=== PATIENT | male | born 1940 | race Caucasian/White ===

== ENCOUNTER 2020-05-07 07:16 | Emergency (ER) | payer MEDICARE, OTHER, SELFPAY ==
[2020-05-07] VITALS (13 sets, daily range): BP systolic 111–136; BP diastolic 69–92; PULSE 78–95; RESP 18–40; TEMP 36.6; O2SAT 77–97; BMI 38.3
--- NOTE | 2020-05-07 07:21 | XRR_ITS ---
PROCEDURE INFORMATION: Exam: XR Chest, 1 View Exam date and time: 05/07/2020 7:42 AM Age: 79 years old Clinical indication: Shortness of breath; Additional info: SOB TECHNIQUE: Imaging protocol: XR of the chest Views: 1 view. COMPARISON: CR Chest 1 [place] [id number] 09/18/2018 1:30 PM FINDINGS: Tubes, catheters and devices: A permanent sequential pacemaker appears intact. Lungs: There is bibasilar pulmonary atelectasis which has increased in prominence since the previous study from 09/18/2018. Superimposed pneumonia in the right base cannot be excluded. The upper lung zones are clear. The pulmonary vascularity is normal. Pleural space: Unremarkable. No pleural effusion. No pneumothorax. Heart/Mediastinum: The cardiac silhouette is enlarged but unchanged. Bones/joints: Unremarkable. XR/XR chest 1V portable [id number] IMPRESSION: 1. Mild cardiomegaly. 2. Worsening bibasilar atelectasis. Superimposed pneumonia in the right base cannot be excluded.
--- NOTE | 2020-05-07 07:29 | W.ED.COVID ---
HPI - COVID General: Chief Complaint: COVID symptoms Stated Complaint: resp distress Time Seen by Provider: 05/07/20 07:27 Triage information: Has fever, cough or shortness of breath. No known COVID + exposure last 14 days History of Present Illness: HPI Narrative: 79-year-old male presents via EMS on nasal cannula at 6 L/min. His complaint of 3 to 4 days of shortness of breath EMS reports that the stated he was at 70 to 80% all night on 4 L by nasal cannula. The reported in route he was up to 96% by nasal cannula with EMS. On arrival in the exam room he was in the 80 percentile with having just finished the second nebulizer as well as having the nasal cannula in place. He has had increasing cough last few days and little bit of increasing lower leg edema he denies chest pain denies diarrhea or vomiting or myalgia or fever. MD complaint: has COVID symptoms Prior covid testing: no COVID 19 common symptoms: positive non-productive cough, dyspnea and fatigue; negative throat pain, nasal congestion, nausea, vomiting or diarrhea COVID 19 other sytmptoms: positive requiring more oxygen and respiratory distress; negative chest pain Onset (ago): day(s) Severity: severe Pertinent comorbid conditions: hypertension, COPD/respiratory disease and obesity Treatment prior to arrival: steroids, oxygen and breathing treatments COVID Results: SARS-CoV-2 Antigen (Rapid) Negative (Negative) 05/07/20 08:01 05/07/20 Nasal/Oral Coronavirus 2019 PCR Pending 05/07/20 09:10 05/07/20 Review of Systems Const: Reports: fatigue ENMT: Denies: throat pain, ear or mastoid pain, nasal discharge or nasal congestion Card: Denies: chest pain, edema, dyspnea on exertion or orthopnea Resp: Reports: dyspnea and non-productive cough GI: Denies: abdominal pain, nausea, vomiting, hematemesis, coffee ground emesis, diarrhea, constipation, bloating, hematochezia or melena : Denies: flank pain, dysuria, urinary frequency or urinary urgency Skin/Breast: Denies: rash or pruritus [facility] ED PFSH: Medical History A-fib Anxiety disorder Chest pain Chronic episodic atrial fibrillation COPD (chronic obstructive pulmonary disease) Dyslipidemia (high LDL; low HDL) Leg swelling Mixed hyperlipidemia Peripheral neuropathy PVD (peripheral vascular disease) SOB (shortness of breath) Surgical History History of permanent cardiac pacemaker placement Physical Exam Const: COMMON NORMALS: no acute distress GENERAL APPEARANCE: cooperative and comfortable ORIENTATION/CONSCIOUSNESS: Yes awake, Yes oriented to person, Yes oriented to place and Yes oriented to time HENMT: COMMON NORMALS: normocephalic, atraumatic and hearing grossly normal bilaterally HEAD & SCALP: normocephalic and atraumatic Eye: COMMON NORMALS: Equal, round and reactive pupils present, EOMs intact bilaterally, conjunctivae normal and no scleral icterus CONJUNCTIVA: Yes conjunctivae normal PUPIL: Yes Equal, round and reactive pupils present Neck/C-Spine: COMMON NORMALS: full ROM, no lymphadenopathy, supple and no JVD Lymph: LYMPHATIC: no lymphadenopathy noted and no lymphedema noted Resp: AUSCULTATION: rales, rhonchi and wheezes Cardio: COMMON NORMALS: no JVD, regular rate, regular rhythm and No murmurs present (Cardio) RATE: regular rate RHYTHM: regular rhythm GI: COMMON NORMALS: Soft to palpation and No hepatosplenomegaly present AUSCULTATION: Yes normoactive bowel sounds PALPATION: Yes Soft to palpation, No Tenderness to palpation present (GI), No Guarding due to palpation present (GI) and Yes No hepatosplenomegaly present Extremity: COMMON NORMALS: normal to inspection, capillary refill normal, no clubbing, cyanosis or edema, no calf tenderness and no pedal edema Neuro: SENSORIUM/ORIENTATION: Yes oriented to person, Yes oriented to place and Yes oriented to time Skin: COMMON NORMALS: no rashes or lesions noted GENERAL SKIN EXAM: no rashes or lesions noted Course Vital Signs: Vital signs: Vital Signs Temperature 97.9 F 05/07/20 07:18 Pulse Rate 95 05/07/20 15:27 Respiratory Rate 25 H 05/07/20 15:27 Blood Pressure 111/75 05/07/20 15:27 Pulse Oximetry 96 05/07/20 15:27 MDM - COVID MDM Narrative Medical decision making narrative: Antigen is negative PCR is pending. Patient has highly suspicious findings for Covid on his chest x-ray and his laboratory findings he continues to require 15 L by nonrebreather to maintain oxygen sats. Unfortunately we do not have any appropriate beds available for him. The VQ is full at this point and there are no private rooms where he could be safely monitored. Discussed with [facility] they are able to take him there was a long delay in getting a bed available we recheck several times to see if any beds opened up here and they had not so patient was maintained in the ER did check on him several times his sats remained good he was feeling better although he still has a cough. Patient ultimately was transferred by ambulance to [facility]. Medical Records Attestation: I reviewed the patient's medical records. Lab Data Result diagrams: 05/07/20 07:38 05/07/20 07:38 Labs: Lab Results 05/07/20 05/07/20 05/07/20 Range/Units 07:20 07:38 07:38 WBC 12.1 H (4.0-10.0) 10^3/uL RBC 4.74 (4.1-5.3) 10^6/uL Hgb 9.6 L (11.7-16.6) g/dL Hct 36.4 L (42.0-52.0) % MCV 76.8 L (80-94) fL MCH 20.3 L (28.0-34.0) pg MCHC 26.4 L (30.0-36.0) g/dL RDW 18.4 H (12.1-15.1) % Plt Count 74 L (130-400) 10^3/cmm MPV 10.5 H (7.4-10.4) fL Neut % (Auto) 72.9 % Lymph % (Auto) 12.0 % [place] % (Auto) 13.8 % Eos % (Auto) 0.4 % Baso % (Auto) 0.2 % Neut # (Auto) 8.79 H (1.8-7.7) 10^3/uL Lymph # (Auto) 1.5 (0.8-4.8) 10^3/uL [place] # (Auto) 1.7 H (0.2-0.9) 10^3/uL Eos # (Auto) 0.1 (0.0-0.8) 10^3/uL Baso # (Auto) 0.0 (0.0-0.1) 10^3/uL Nucleated RBC % (auto) 0.4 % Nucleated RBCs # 0.1 /100WBC PT (12.1-14.9) SECONDS INR (0.8-1.2) Fibrinogen (174-498) mg/dL D-Dimer (0-0.59) ug/mIFEU Specimen Type Arterial Sample Site Radial, left ABG pH 7.31 L (7.35-7.45) ABG pCO2 57.6 H (35-45) mmHg ABG pO2 65.3 L (80.0-100.0) mmHg ABG HCO3 28.9 H (22-26) mmol/L ABG O2 Saturation 91.1 ABG Base Excess 1.8 (-2.0-2.0) mmol/L Cole Test Pos A-a O2 Gradient 75.6 H (5-10) mmHg Hematocrit 30.2 L (42-52) % Hgb O2 Saturation 89.1 L (95-100) % Carboxyhemoglobin 1.5 (0.4-20.1) %THgb Methemoglobin 0.7 (0.4-1.5) % Total Hemoglobin 9.8 L (14-18) g/dL Sodium 139.0 137 (131-143) mmol/L Potassium 4.5 4.8 (3.5-5.0) mmol/L Glucose 215.0 H 192 H (70-115) mg/dL Ionized Calcium 1.2 (1.1-1.4) mmol/L O2 Delivery Device Nrb FiO2 100.0 % General Laborer ID jmn Chloride 98 (98-107) mmol/L Carbon Dioxide 28 (22-29) mmol/L Anion Gap 15.8 (5-19) BUN 25 H (8-23) mg/dL Creatinine 0.9 (0.7-1.2) mg/dL GFR Calculation Not Reportable Calculated Osmolality 294 (285-295) mOsm/kg Lactic Acid (0.5-2.2) mmol/L Calcium 9.1 (8.5-10.5) mg/dL Magnesium 1.8 (1.7-2.3) mg/dL Ferritin 27 L (30-400) ng/mL Total Bilirubin 0.6 (0.15-1.2) mg/dL AST 21 (0-40) U/L ALT 21 (0-41) U/L Alkaline Phosphatase 112 (40-130) IU/L Lactate Dehydrogenase 175 (135-225) U/L Troponin T Baseline (0-15) ng/L Troponin T 120 Minute (0-15) ng/L Delta Troponin T (0-10) ABS# Troponin T Hi Sens 6Hr (0-15) ng/L Troponin T Hi Sens 6Hr Delta (0-12) ng/L C-Reactive Protein 35.6 H (0.0-4.9) mg/L NT-Pro-B Natriuret Pep 1503 H (0-450) pg/mL Total Protein 7.9 (6.6-8.7) g/dL Albumin 4.4 (3.5-5.2) g/dL Globulin 3.5 (1.3-4.6) g/dL SARS-CoV-2 Ag (Rapid) (Negative) 05/07/20 05/07/20 05/07/20 Range/Units 07:38 07:38 07:38 WBC (4.0-10.0) 10^3/uL RBC (4.1-5.3) 10^6/uL Hgb (11.7-16.6) g/dL Hct (42.0-52.0) % MCV (80-94) fL MCH (28.0-34.0) pg MCHC (30.0-36.0) g/dL RDW (12.1-15.1) % Plt Count (130-400) 10^3/cmm MPV (7.4-10.4) fL Neut % (Auto) % Lymph % (Auto) % [place] % (Auto) % Eos % (Auto) % Baso % (Auto) % Neut # (Auto) (1.8-7.7) 10^3/uL Lymph # (Auto) (0.8-4.8) 10^3/uL [place] # (Auto) (0.2-0.9) 10^3/uL Eos # (Auto) (0.0-0.8) 10^3/uL Baso # (Auto) (0.0-0.1) 10^3/uL Nucleated RBC % (auto) % Nucleated RBCs # /100WBC PT 24.40 H (12.1-14.9) SECONDS INR 2.11 H (0.8-1.2) Fibrinogen 484 (174-498) mg/dL D-Dimer 0.40 (0-0.59) ug/mIFEU Specimen Type Sample Site ABG pH (7.35-7.45) ABG pCO2 (35-45) mmHg ABG pO2 (80.0-100.0) mmHg ABG HCO3 (22-26) mmol/L ABG O2 Saturation ABG Base Excess (-2.0-2.0) mmol/L Cole Test A-a O2 Gradient (5-10) mmHg Hematocrit (42-52) % Hgb O2 Saturation (95-100) % Carboxyhemoglobin (0.4-20.1) %THgb Methemoglobin (0.4-1.5) % Total Hemoglobin (14-18) g/dL Sodium (131-143) mmol/L Potassium (3.5-5.0) mmol/L Glucose (70-115) mg/dL Ionized Calcium (1.1-1.4) mmol/L O2 Delivery Device FiO2 % General Laborer ID Chloride (98-107) mmol/L Carbon Dioxide (22-29) mmol/L Anion Gap (5-19) BUN (8-23) mg/dL Creatinine (0.7-1.2) mg/dL GFR Calculation Calculated Osmolality (285-295) mOsm/kg Lactic Acid 1.5 (0.5-2.2) mmol/L Calcium (8.5-10.5) mg/dL Magnesium (1.7-2.3) mg/dL Ferritin (30-400) ng/mL Total Bilirubin (0.15-1.2) mg/dL AST (0-40) U/L ALT (0-41) U/L Alkaline Phosphatase (40-130) IU/L Lactate Dehydrogenase (135-225) U/L Troponin T Baseline 13 (0-15) ng/L Troponin T 120 Minute (0-15) ng/L Delta Troponin T (0-10) ABS# Troponin T Hi Sens 6Hr (0-15) ng/L Troponin T Hi Sens 6Hr Delta (0-12) ng/L C-Reactive Protein (0.0-4.9) mg/L NT-Pro-B Natriuret Pep (0-450) pg/mL Total Protein (6.6-8.7) g/dL Albumin (3.5-5.2) g/dL Globulin (1.3-4.6) g/dL SARS-CoV-2 Ag (Rapid) (Negative) 05/07/20 05/07/20 05/07/20 Range/Units 08:01 09:52 13:38 WBC (4.0-10.0) 10^3/uL RBC (4.1-5.3) 10^6/uL Hgb (11.7-16.6) g/dL Hct (42.0-52.0) % MCV (80-94) fL MCH (28.0-34.0) pg MCHC (30.0-36.0) g/dL RDW (12.1-15.1) % Plt Count (130-400) 10^3/cmm MPV (7.4-10.4) fL Neut % (Auto) % Lymph % (Auto) % [place] % (Auto) % Eos % (Auto) % Baso % (Auto) % Neut # (Auto) (1.8-7.7) 10^3/uL Lymph # (Auto) (0.8-4.8) 10^3/uL [place] # (Auto) (0.2-0.9) 10^3/uL Eos # (Auto) (0.0-0.8) 10^3/uL Baso # (Auto) (0.0-0.1) 10^3/uL Nucleated RBC % (auto) % Nucleated RBCs # /100WBC PT (12.1-14.9) SECONDS INR (0.8-1.2) Fibrinogen (174-498) mg/dL D-Dimer (0-0.59) ug/mIFEU Specimen Type Sample Site ABG pH (7.35-7.45) ABG pCO2 (35-45) mmHg ABG pO2 (80.0-100.0) mmHg ABG HCO3 (22-26) mmol/L ABG O2 Saturation ABG Base Excess (-2.0-2.0) mmol/L Cole Test A-a O2 Gradient (5-10) mmHg Hematocrit (42-52) % Hgb O2 Saturation (95-100) % Carboxyhemoglobin (0.4-20.1) %THgb Methemoglobin (0.4-1.5) % Total Hemoglobin (14-18) g/dL Sodium (131-143) mmol/L Potassium (3.5-5.0) mmol/L Glucose (70-115) mg/dL Ionized Calcium (1.1-1.4) mmol/L O2 Delivery Device FiO2 % General Laborer ID Chloride (98-107) mmol/L Carbon Dioxide (22-29) mmol/L Anion Gap (5-19) BUN (8-23) mg/dL Creatinine (0.7-1.2) mg/dL GFR Calculation Calculated Osmolality (285-295) mOsm/kg Lactic Acid (0.5-2.2) mmol/L Calcium (8.5-10.5) mg/dL Magnesium (1.7-2.3) mg/dL Ferritin (30-400) ng/mL Total Bilirubin (0.15-1.2) mg/dL AST (0-40) U/L ALT (0-41) U/L Alkaline Phosphatase (40-130) IU/L Lactate Dehydrogenase (135-225) U/L Troponin T Baseline (0-15) ng/L Troponin T 120 Minute 13.40 (0-15) ng/L Delta Troponin T 0.40 (0-10) ABS# Troponin T Hi Sens 6Hr 11.12 (0-15) ng/L Troponin T Hi Sens 6Hr Delta -1.88 L (0-12) ng/L C-Reactive Protein (0.0-4.9) mg/L NT-Pro-B Natriuret Pep (0-450) pg/mL Total Protein (6.6-8.7) g/dL Albumin (3.5-5.2) g/dL Globulin (1.3-4.6) g/dL SARS-CoV-2 Ag (Rapid) Negative (Negative) COVID Results: SARS-CoV-2 Antigen (Rapid) Negative (Negative) 05/07/20 08:01 05/07/20 Nasal/Oral Coronavirus 2019 PCR Pending 05/07/20 09:10 05/07/20 Discharge Plan Discharge Patient Disposition: Xfer Short-Term Hosp Referrals: Diego Pelaez Jr, MD [Primary Care Provider] - Discharge Date/Time: 05/07/20 16:33 Coding Level of Care Code ED Inside Sales Engineer for Chg Fwd Exam Comprehensive
[2020-05-07 07:32] LABS: ABG PCO2 57.6 mmHg (35-45); ABG PH Result 7.31 (7.35-7.45); Alveolar-Arterial Oxygen Gradi 75.6 mmHg (5-10); Arterial Blood Gas Hematocrit 30.2 % (42-52); Base Excess ABG 1.8 mmol/L (-2.0-2.0); Blood Gas Allen Test Pos; Blood Gas Sample Site Radial, left; Blood Gas Sample Type Arterial; Carboxyhemoglobin 1.5 %THgb (0.4-20.1); HCO3 ABG 28.9 mmol/L (22-26); HGB O2 Sat 89.1 % (95-100); Ionized Calcium Level - ABG 1.2 mmol/L (1.1-1.4); Methemoglobin 0.7 % (0.4-1.5); Oxygen Device NRB; Oxygen Saturation ABG 91.1; PO2 ABG 65.3 mmHg (80.0-100.0); Potassium Level - ABG 4.5 mmol/L (3.5-5.0); Total Hemoglobin 9.8 g/dL (14-18)
[2020-05-07 07:50] LABS: Basophils % 0.2 %; Eosinophils # 0.1 10^3/uL (0.0-0.8); Eosinophils % 0.4 %; Hematocrit 36.4 % (42.0-52.0); Hemoglobin 9.6 g/dL (11.7-16.6); Lymphocytes # 1.5 10^3/uL (0.8-4.8); Mean Corpuscular HGB Conc 26.4 g/dL (30.0-36.0); Mean Corpuscular Hemoglobin 20.3 pg (28.0-34.0); Mean Corpuscular Volume 76.8 fL (80-94); Monocytes # 1.7 10^3/uL (0.2-0.9); Monocytes % 13.8 %; Neutrophils # 8.79 10^3/uL (1.8-7.7); Neutrophils % 72.9 %; Nucleated Red Blood Cells # 0.1 /100WBC; Nucleated Red Blood Cells % 0.4 %; Platelet Count 74 10^3/cmm (130-400); Red Blood Count 4.74 10^6/uL (4.1-5.3); Red Cell Distribution Width 18.4 % (12.1-15.1); White Blood Count 12.1 10^3/uL (4.0-10.0)
--- NOTE | 2020-05-07 07:51 | ECG_ITS ---
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 Measurements Intervals [place] Rate: 84 P: NM: -1 QRS: 4 QRSD: 168 T: 147 QT: 412 QTc: 488 Interpretive Statements ATRIAL FIBRILLATION LEFT BUNDLE BRANCH BLOCK [120+ ms QRS DURATION, 80+ ms Q/S IN V1/V2, 85+ ms R IN I/aVL/V5/V6] Compared to ECG 09/18/2018 13:09:57 Ventricular-paced complex(es) or rhythm no longer present Electronically Signed On 05-07-2020 21:38:26 CDT by Gen Brown M.D. [email or web address]/[id number] f
[2020-05-07 07:54] LABS: Mean Platelet Volume 10.5 fL (7.4-10.4)
[2020-05-07 08:01] LABS: Fibrinogen 484 mg/dL (174-498); INR 2.11 (0.8-1.2)
[2020-05-07 08:02] LABS: Lactic Sepsis W/Reflex 1.5 mmol/L (0.5-2.2)
[2020-05-07] MEDS: levofloxacin-dextrose 5 % 750 MG/150 ML PREMIX 100 MG IV (08:03)
[2020-05-07 08:11] LABS: Alanine Aminotransferase 21 U/L (0-41); Albumin Level 4.4 g/dL (3.5-5.2); Alkaline Phosphatase 112 IU/L (40-130); Anion Gap 15.8 (5-19); Aspartate Amino Transferase 21 U/L (0-40); Blood Urea Nitrogen 25 mg/dL (8-23); C Reactive Protein 35.6 mg/L (0.0-4.9); Calcium 9.1 mg/dL (8.5-10.5); Carbon Dioxide 28 mmol/L (22-29); Chloride 98 mmol/L (98-107); Ferritin 27 ng/mL (30-400); Globulin 3.5 g/dL (1.3-4.6); Glucose 192 mg/dL (65-115); Lactate Dehydrogenase 175 U/L (135-225); Magnesium 1.8 mg/dL (1.7-2.3); NT Pro B Type Natriuretic Pept 1503 pg/mL (0-450); Osmolality Calculated 294 mOsm/kg (285-295); Potassium 4.8 mmol/L (3.5-5.1); Sodium 137 mmol/L (136-145); Total Bilirubin 0.6 mg/dL (0.15-1.2); Total Protein 7.9 g/dL (6.6-8.7)
[2020-05-07 08:29] LABS: Troponin(5th) Baseline 13 ng/L (0-15)
[2020-05-07 08:40] LABS: SARS Covid-2 Antigen Negative (Negative)
--- NOTE | 2020-05-07 09:51 | ECG_ITS ---
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 Measurements Intervals [place] Rate: 92 P: TN: -1 QRS: -4 QRSD: 161 T: 142 QT: 406 QTc: 504 Interpretive Statements ATRIAL FIBRILLATION LEFT BUNDLE BRANCH BLOCK [120+ ms QRS DURATION, 80+ ms Q/S IN V1/V2, 85+ ms R IN I/aVL/V5/V6] Compared to ECG 05/07/2020 07:55:27 No significant changes Electronically Signed On 05-07-2020 21:45:50 CDT by Gen Brown M.D. [id number]
[2020-05-07] MEDS: dexamethasone 4 mg/mL INJ 6 MG IVP (10:54)
[2020-05-07 14:43] LABS: Troponin 5 6HR 11.12 ng/L (0-15)
[2020-05-07 14:44] LABS: Troponin 5 6HR Delta -1.88 ng/L (0-12)
[2020-05-08 09:16] LABS: Coronavirus Lab Test PTC Negative
--- NOTE | 2020-05-08 10:11 | PC.NURSE ---
Lab called 1 of 4 blood culture results of gram positive cocci in clusters. Rachel EVANS at [facility] was called and given the results.
--- NOTE | 2020-05-08 17:27 | PC.NURSE ---
Called [facility] and spoke with NATHAN Ramos and relayed negative COVID result to her.
== END 2020-05-07 16:33 | disposition short-term general hospital (02) ==
PROVIDERS: Emergency Provider Family Medicine; PCP Family Medicine
DX: R06.02 Shortness of breath (principal); I48.91 Unspecified atrial fibrillation; J44.9 Chronic obstructive pulmonary disease, unspecified; E78.5 Hyperlipidemia, unspecified; E78.2 Mixed hyperlipidemia; Z95.0 Presence of cardiac pacemaker
CPT/HCPCS: 12345; 36415; 36600; 51702; 71045; 80051; 80053; 82728; 82810; 83605; 83615; 83735; 83880; 83986; 84484; 85025; 85378; 85384; 85610; 86140; 87040; 87077; 87186; 87205; 87426; 87635; 93005; 94660; 96365; 96366; 96375; 99284; 99285; J1100; J1956

== ENCOUNTER 2020-10-09 11:36 | Emergency (ER) | payer MEDICARE, OTHER, SELFPAY ==
--- NOTE | 2020-10-09 11:48 | CT_ITS ---
WS: [id number] CT CERVICAL SPINE HISTORY: fall on coumadin TECHNIQUE: Contiguous 2.5 mm axial imaging performed through the entire cervical spine. Sagittal and coronal reformats also performed. All CT scans at [facility] use at least one of these do se optimization techniques: automated exposure control; mA and/or kV adjustment per patient size (inc ludes targeted exams where dose is matched to clinical indication); or iterative reconstruction. DLP: 957.72 mGy.cm COMPARISON: None available. Normal posterior cervical alignment. Craniocervical junction is normal. Lateral masses are aligned od ontoid is intact. Narrowing of the predental space. No acute cervical fracture is identified. Diffuse osteopenia. Moderate to severe narrowing of the facet joints bilaterally with foraminal narrowing th roughout the cervical spine. Lung apices are clear. CT/CT cervical spin wo con* [id number] IMPRESSION: No acute cervical spine fracture. Diffuse osteopenia with facet joint arthritis.
--- NOTE | 2020-10-09 11:48 | CT_ITS ---
WS: [id number] CT FACIAL BONES HISTORY: fall on coumadin TECHNIQUE: Images obtained from the supraorbital location through the mandible. Soft tissue and bone windows are reviewed. Coronal and sagittal reformats have also been submitted. DLP: 805.[address] scans at [facility] use at least one of these dose optimization techniques: automat ed exposure control; mA and/or kV adjustment per patient size (includes targeted exams where dose is matched to clinical indication); or iterative reconstruction. COMPARISON: None available. No facial bone fractures are identified. Zygomatic arches are intact. Rock of the orbits and globes are intact. No nasal bone fracture. No air-fluid levels in the sinuses. Moderate amount of soft tissu e edema and hemorrhage centered over the LEFT frontal bone. CT/CT facial bones wo con* [id number] IMPRESSION: 1. No facial bone fracture. 2. Moderate scalp hematoma centered over the LEFT frontal bone.
--- NOTE | 2020-10-09 11:48 | CT_ITS ---
WS: [id number] CT HEAD NONCONTRAST HISTORY: fall on coumadin TECHNIQUE: Contiguous axial imaging performed through the brain in 2.5 mm imaging. Bone and soft tiss ue windows. Sagittal and coronal reformats reviewed. All CT scans at [facility] use at ast one of these dose optimization techniques: automated exposure control; mA and/or kV adjustment pe r patient size (includes targeted exams where dose is matched to clinical indication); or iterative r econstruction. DLP: 2453.82 mGy.cm COMPARISON: 04/25/2010 No acute intracranial hemorrhage, midline shift or mass effect. Moderate atrophy and prior lacunar infarct versus perivascular space in the inferior LEFT basal gangl ia. Ventricles: Normal size with no hydrocephalus. Paranasal sinuses: As visualized are clear. Mastoid air cells: Well pneumatized. Calvarium and scalp: No skull fracture. There is a moderate size scalp hematoma centered over the LEF T frontal bone and just above the orbit. CT/CT head wo con* [id number] IMPRESSION: 1. No acute intracranial hemorrhage. 2. Moderate-sized LEFT frontal scalp hematoma. 3. No fracture.
--- NOTE | 2020-10-09 11:49 | XRR_ITS ---
PROCEDURE INFORMATION: Exam: XR Bilateral Hips Exam date and time: 10/09/2020 1:20 PM Age: 80 years old Clinical indication: Injury or trauma; Fall; Blunt trauma (contusions or hematomas); Bilateral; Hip; Injury date: 10/09/20 TECHNIQUE: Imaging protocol: XR bilateral hips. Views: 2 views of hips with pelvis when performed. COMPARISON: No relevant prior studies available. FINDINGS: Bones/joints: No fracture. No dislocation. No significant hip joint space narrowing. The symphysis pubis and sacroiliac joints are not diastatic. Multilevel degenerative changes felt to be present in the lower lumbar spine. Soft tissues: No acute soft tissue abnormality. XR/XR hip BI m 5V wo/w pel* [id number] IMPRESSION: No acute osseous abnormality.
--- NOTE | 2020-10-09 11:49 | XRR_ITS ---
PROCEDURE INFORMATION: Exam: XR Left Hand Exam date and time: 10/09/2020 11:51 AM Age: 80 years old Clinical indication: Injury or trauma; Fall; Blunt trauma (contusions or hematomas); Hand; Left; Injury date: 10/09/20 TECHNIQUE: Imaging protocol: XR Left hand. Views: 1 or 2 views. COMPARISON: No relevant prior studies available. FINDINGS: Bones/joints: There is a fracture of the ulnar styloid. There is a nondisplaced distal radial fracture observed on the lateral image. Soft tissues: No acute soft tissue abnormality. XR/XR hand LT 2V [id number] IMPRESSION: 1. Nondisplaced distal radial fracture. 2. Ulnar styloid fracture.
--- NOTE | 2020-10-09 11:49 | XRR_ITS ---
PROCEDURE INFORMATION: Exam: XR Left Wrist Exam date and time: 10/09/2020 1:22 PM Age: 80 years old Clinical indication: Injury or trauma; Fall; Blunt trauma (contusions or hematomas); Wrist; Left; Injury date: 10/09/20 TECHNIQUE: Imaging protocol: XR Left wrist. Views: 1 or 2 views. COMPARISON: No relevant prior studies available. FINDINGS: Bones/joints: There is a fracture of the ulnar styloid. No distal radial fracture is identified. Soft tissues: No pronator quadratus sign. XR/XR wrist LT 2V [id number] IMPRESSION: Ulnar styloid fracture.
--- NOTE | 2020-10-09 11:49 | XRR_ITS ---
PROCEDURE INFORMATION: Exam: XR Left Elbow Exam date and time: 10/09/2020 11:51 AM Age: 80 years old Clinical indication: Injury or trauma; Fall; Blunt trauma (contusions or hematomas); Elbow; Left; Injury date: 10/09/20 TECHNIQUE: Imaging protocol: XR Left elbow. Views: 1 or 2 views. COMPARISON: Comparison: No relevant prior studies available. FINDINGS: Bones/joints: No fracture. No dislocation. No anterior or posterior fat pad sign. Soft tissues: There is superficial soft tissue swelling posterior to the olecranon which can be due to a contusion/hematoma given the history. XR/XR elbow LT 2V [id number] IMPRESSION: Soft tissue injury without osseous injury.
--- NOTE | 2020-10-09 11:49 | XRR_ITS ---
PROCEDURE INFORMATION: Exam: XR Left Knee Exam date and time: 10/09/2020 11:51 AM Age: 80 years old Clinical indication: Injury or trauma; Fall; Blunt trauma; Knee; Left; Injury date: 10/09/20; Additional info: Fall, on coumadin TECHNIQUE: Imaging protocol: XR Left knee. Views: 3 views. COMPARISON: CR Knee 3 views, LEFT* [id number] 06/07/2014 1:35 PM FINDINGS: Bones/joints: There is a nondisplaced transverse fracture involving the inferior patella. No dislocation. There is a joint effusion versus lipohemarthrosis. Soft tissues: Superficial soft tissue swelling anterior to the patella and patellar tendon. XR/XR knee LT 3V* [id number] IMPRESSION: Nondisplaced patellar fracture.
--- NOTE | 2020-10-09 11:49 | XRR_ITS ---
PROCEDURE INFORMATION: Exam: XR Chest Exam date and time: 10/09/2020 11:50 AM Age: 80 years old Clinical indication: Injury or trauma; Fall; Blunt trauma (contusions or hematomas); Injury date: 10/09/20; Prior surgery; Surgery type: Pacemaker; Additional info: Fall on coumadin TECHNIQUE: Imaging protocol: XR of the chest Views: 1 view. COMPARISON: CR XR chest 1V portable [id number] 05/07/2020 7:22 AM FINDINGS: Lungs: Poor inspiration. Decreased lung volumes. Bibasilar atelectasis versus scarring. Pleural spaces: No pneumothorax, hemothorax, or pleural effusion. Heart/Mediastinum: The heart is enlarged. The mediastinal contours are unchanged. Vasculature: There is a left subclavian dual chamber pacemaker. Bones/joints: No rib fracture identified. XR/XR chest 1V portable [id number] IMPRESSION: Bibasilar atelectasis versus scarring.
--- NOTE | 2020-10-09 11:52 | ECG_ITS ---
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 Measurements Intervals [place] Rate: 88 P: [place]: QRS: 100 QRSD: 150 T: -8 QT: 399 QTc: 484 Interpretive Statements ATRIAL FIBRILLATION WITH ABERRANT CONDUCTION OR VENTRICULAR PREMATURE COMPLEXES BORDERLINE RIGHT AXIS DEVIATION [QRS AXIS > 90] INTRAVENTRICULAR CONDUCTION DELAY [130+ ms QRS DURATION] Compared to ECG 05/07/2020 09:50:42 Ventricular premature complex(es) now present Aberrant conduction of supraventricular beat(s) now present Intraventricular conduction delay now present Left bundle-branch block no longer present Electronically Signed On 10-09-2020 20:19:42 CDT by Gen Brown M.D. [id number]
[2020-10-09 11:56] VITALS: BP 130/86; PULSE 95; RESP 18; TEMP 37.1; O2SAT 93; BMI 26.4
[2020-10-09 12:21] LABS: Alanine Aminotransferase 22 U/L (0-41); Albumin Level 4.2 g/dL (3.5-5.2); Alkaline Phosphatase 91 IU/L (40-130); Anion Gap 15.6 (5-19); Aspartate Amino Transferase 22 U/L (0-40); Blood Urea Nitrogen 20 mg/dL (8-23); Carbon Dioxide 28 mmol/L (22-29); Chloride 100 mmol/L (98-107); Globulin 3.2 g/dL (1.3-4.6); Glucose 112 mg/dL (65-115); Osmolality Calculated 289 mOsm/kg (285-295); Potassium 5.6 mmol/L (3.5-5.1); Sodium 138 mmol/L (136-145); Total Bilirubin 0.3 mg/dL (0.15-1.2); Total Protein 7.4 g/dL (6.6-8.7)
[2020-10-09 12:23] LABS: Troponin(5th) Baseline 19 ng/L (0-15)
--- NOTE | 2020-10-09 12:26 | ED_ITS ---
HPI - Fall General: Chief Complaint: Fall Stated Complaint: FALL, AMS Time Seen by Provider: 10/09/20 11:38 History of Present Illness: HPI Narrative: The patient is a 80-year-old male with past medical history atrial fibrillation on Coumadin, pacemaker, peripheral arterial and vascular disease. He comes to the ER after a fall. He was going to a imaging center to have an x-ray of his neck done and tripped while walking up the stairs. He has a hematoma to his left forehead and was confused on scene. EMS brought him in and said he is more lucid now from the scene and his mental status in the ED is at his baseline. 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 He also has been complaining of chronic neck pain which is worsened with the fall. That is what he was going to get an x-ray of. EMS attempted to place a c-collar and he refused. I offered to get in the ER and he again refused. Discussed with him his injury could be worsened by not wearing in c-collar. He does not care and will not wear one. He also complains of pain in different places left elbow, wrist, hand, and knee. Bilateral hips pain as well. MD complaint: fall Fall from: standing Fall witnessed: yes, by family Loss of consciousness: None Prolonged down time: no Symptoms prior to fall: none Context: tripped/slipped Location of injury: head and neck Severity: moderate Associated symptoms-after fall: Reports confusion, headache(s) and neck pain; Denies abdominal pain or chest pain Review of Systems General: Reports: 10 or more systems reviewed and unremarkable except in HPI and below Const: Denies: fatigue Eyes: Denies: change in vision, blurry vision or eye redness ENMT: Denies: throat pain, swelling of lips/tongue, ear or mastoid pain or nasal congestion Card: Denies: chest pain, palpitations, irregular heart rhythm, edema, dyspnea on exertion or orthopnea Resp: Denies: dyspnea, productive cough or non-productive cough GI: Denies: abdominal pain, diarrhea or GI cramping : Denies: flank pain, urinary frequency or urinary urgency Musc: Reports: neck pain, extremity pain and joint pain Skin/Breast: Reports: skin swelling; Denies: rash, pruritus, erythema, skin pain or skin tenderness Neuro: Reports: headache(s) and confusion Psych: Denies: anxiety or depression Endo: Denies: polyuria All/Imm: Denies: urticaria, throat swelling or tongue swelling PFSH ED PFSH: Medical History A-fib Anxiety disorder Benign essential hypertension with target blood pressure below 140/90 Chest pain Chronic atrial fibrillation Chronic episodic atrial fibrillation COPD (chronic obstructive pulmonary disease) Dyslipidemia (high LDL; low HDL) Leg swelling Mixed hyperlipidemia Peripheral neuropathy PVD (peripheral vascular disease) SOB (shortness of breath) Surgical History History of permanent cardiac pacemaker placement Family History Brother CAD (coronary artery disease) Mother Cancer Father Cancer Sister Cancer Family/Other Cancer Denies family history of Diabetes Clotting disorder Dementia Chronic kidney disease (CKD) Suicide Anesthesia complication Bleeding disorder Lung disease Stroke Social History Smoking and tobacco status: former smoker Alcohol intake: never Physical Exam Const: COMMON NORMALS: no acute distress, average body habitus, patient oriented x3, no limitations, healthy appearing, alert and well nourished GENERAL APPEARANCE: cooperative, comfortable, well kempt and well developed ORIENTATION/CONSCIOUSNESS: Yes awake, Yes oriented to person, Yes oriented to place and Yes oriented to time HENMT: COMMON NORMALS: normocephalic, external ears normal and Normal external nose present HEAD & SCALP: normal to inspection and normocephalic HEAD IMAGES: 1. Hematoma to left forehead and scalp. Associated tenderness. No significant bleeding NOSE: Normal external nose present EXTERNAL EAR: Yes external ears normal MOUTH: Normal oral and palatal mucosa present THROAT: posterior oropharynx normal Eye: COMMON NORMALS: Equal, round and reactive pupils present and EOMs intact bilaterally GENERAL EYE: appearance normal, both eyes and all related structures PUPIL: Yes Equal, round and reactive pupils present Neck/C-Spine: COMMON NORMALS: full ROM, no lymphadenopathy, no meningeal signs and no JVD GENERAL: Yes normal visual inspection OTHER: Mild tenderness to the para musculature of the cervical spine. No significant bony tenderness. Patient refused c-collar. Lymph: LYMPHATIC: no lymphadenopathy noted Chest: COMMONS NORMALS: normal inspection of the chest and normal palpation of entire chest wall Resp: COMMON NORMALS: normal respiratory effort, No retractions, No use of accessory muscles, clear to auscultation bilaterally and percussion normal EFFORT & INSPECTION: Yes able to speak in complete sentences AUSCULTATION: clear to auscultation bilaterally PERCUSSION: percussion normal Cardio: COMMON NORMALS: no JVD, regular rate, regular rhythm, S1 normal heart sound present, S2 normal heart sound present and Peripheral pulses 2+ throughout RATE: regular rate RHYTHM: regular rhythm HEART SOUNDS: S1 normal heart sound present and S2 normal heart sound present PERIPHERAL PULSES: Peripheral pulses 2+ throughout GI: COMMON NORMALS: Normal to inspection, nondistended, normoactive bowel sounds present, Soft to palpation, non-tender and no masses INSPECTION: Yes normal to inspection PALPATION: Yes Soft to palpation : COMMON NORMALS: Yes no CVA tenderness BLADDER/KIDNEY EXAM: Yes no CVA tenderness Back/Pelvis: COMMON NORMALS: no CVA tenderness, thoracic and lumbar spine normal to inspection, no thoracic nor lumbar tenderness and thoraco-lumbar ROM normal Extremity: COMMON NORMALS: normal to inspection, full ROM, capillary refill normal, no joint enlargement and no pedal edema NARRATIVE EXTREMITY EXAM: Mild tenderness to left hand, left wrist, left elbow. Major ligaments intact and no bruising noted.. Left knee also similar with tenderness. No swelling. Ligaments intact. Bilateral hips and pelvis have some mild tenderness as well. No instability. GENERAL: Yes normal exam except as noted Neuro: COMMON NORMALS: patient oriented x3, CN's II-XII intact bilaterally, moves all extremities, no focal motor deficits, no sensory deficits noted and gait normal SENSORIUM/ORIENTATION: Yes alert, Yes oriented to person, Yes oriented to place and Yes oriented to time MENINGEAL SIGNS: Yes no meningeal signs Psych: COMMON NORMALS: mental status grossly normal, Normal thought process present, cooperative, normal affect and speech normal APPEARANCE: Yes well kempt ATTITUDE: Yes calm SPEECH: Yes normal speech THOUGHT PROCESS: Normal thought process present Skin: COMMON NORMALS: no rashes or lesions noted GENERAL SKIN EXAM: no rashes or lesions noted Course 2 Vital Signs: Vital signs: Vital Signs Temperature 98.7 F 10/09/20 11:56 Pulse Rate 80 10/09/20 15:09 Respiratory Rate 18 10/09/20 15:09 Blood Pressure 130/86 10/09/20 11:56 Pulse Oximetry 97 10/09/20 15:09 MDM - Fall MDM Narrative: Medical decision making narrative: This patient came in for a fall. He has a hematoma to his left forehead. No acute bleeding seen on CT. He does have multiple fractures. Distal radius, ulnar styloid process, and left patella. None of which are displaced. He was placed in splints and discussed with Dr. De Santiago who recommended outpatient follow-up. Placed a case management referral to help him get a follow-up with these. Also his potassium was elevated. Recommended he hold his potassium for 2 days and get it rechecked. ER with worsening symptoms. He has hydrocodone at home for pain. Lab Data: Labs: Lab Results 10/09/20 10/09/20 10/09/20 Range/Units 11:52 11:52 11:52 WBC Cancelled Corrected WBC Cancelled RBC Cancelled Hgb Cancelled Hct Cancelled MCV Cancelled MCH Cancelled MCHC Cancelled RDW Cancelled Plt Count Cancelled MPV Cancelled Gran % Cancelled Neut % (Auto) Cancelled Lymph % (Auto) Cancelled [place] % (Auto) Cancelled Eos % (Auto) Cancelled Baso % (Auto) Cancelled Neut # (Auto) Cancelled Lymph # (Auto) Cancelled [place] # (Auto) Cancelled Eos # (Auto) Cancelled Baso # (Auto) Cancelled Absolute Gran (aut o) Cancelled Nucleated RBC % (a uto) Cancelled Nucleated RBCs # Cancelled PT 22.60 H (12.1-14.9) SECO NDS INR 1.91 H (0.8-1.2) Sodium 138 (136-145) mmol/L Potassium 5.6 H (3.5-5.1) mmol/L Chloride 100 (98-107) mmol/L Carbon Dioxide 28 (22-29) mmol/L Anion Gap 15.6 (5-19) BUN 20 (8-23) mg/dL Creatinine 1.1 (0.7-1.2) mg/dL GFR Calculation Not Reportable Glucose 112 (65-115) mg/dL Calculated Osmolal ity 289 (285-295) mOsm/k g Calcium 9.0 (8.5-10.5) mg/dL Total Bilirubin 0.3 (0.15-1.2) mg/dL AST 22 (0-40) U/L ALT 22 (0-41) U/L Alkaline Phosphata se 91 (40-130) IU/L Troponin T Baselin e (0-15) ng/L Total Protein 7.4 (6.6-8.7) g/dL Albumin 4.2 (3.5-5.2) g/dL Globulin 3.2 (1.3-4.6) g/dL 10/09/20 10/09/20 Range/Units 11:52 13:21 WBC 8.7 Corrected WBC RBC 5.37 H Hgb 13.3 Hct 45.9 MCV 85.5 MCH 24.8 L MCHC 29.0 L RDW 20.2 H Plt Count 151 MPV 9.4 Gran % Neut % (Auto) 69.1 Lymph % (Auto) 15.6 [place] % (Auto) 13.4 Eos % (Auto) 1.3 Baso % (Auto) 0.1 Neut # (Auto) 6.02 Lymph # (Auto) 1.4 [place] # (Auto) 1.2 H Eos # (Auto) 0.1 Baso # (Auto) 0.0 Absolute Gran (aut o) Nucleated RBC % (a uto) 0 Nucleated RBCs # 0.0 PT (12.1-14.9) SECO NDS INR (0.8-1.2) Sodium (136-145) mmol/L Potassium (3.5-5.1) mmol/L Chloride (98-107) mmol/L Carbon Dioxide (22-29) mmol/L Anion Gap (5-19) BUN (8-23) mg/dL Creatinine (0.7-1.2) mg/dL GFR Calculation Glucose (65-115) mg/dL Calculated Osmolal ity (285-295) mOsm/k g Calcium (8.5-10.5) mg/dL Total Bilirubin (0.15-1.2) mg/dL AST (0-40) U/L ALT (0-41) U/L Alkaline Phosphata se (40-130) IU/L Troponin T Baselin e 19 H (0-15) ng/L Total Protein (6.6-8.7) g/dL Albumin (3.5-5.2) g/dL Globulin (1.3-4.6) g/dL Discharge Plan Discharge Patient Disposition: Home Clinical Impression: Fracture of wrist, Fracture, patella, Contusion of head, Hyperkalemia Condition: Stable Prescriptions: No Action albuterol sulfate 2.5 mg /3 mL (0.083 %) solution for nebulization 2.5 mg INHALATION Q4H PRN (Reason: Shortness Of Breath) RF: 0 finasteride 5 mg tablet 5 mg PO DAILY@1700 RF: 0 omega 1-zqe-xpc-fish oil [Fish Oil] 1,000 mg (120 mg-180 mg) capsule 2 cap PO DAILY@07 RF: 0 fluoxetine 20 mg capsule 20 mg PO DAILY@07 RF: 0 lorazepam 1 mg tablet 0.5 mg PO TID PRN (Reason: Anxiety) RF: 0 multivitamin Tablet 1 tab PO DAILY@07 RF: 0 nitroglycerin [Nitrostat] 0.4 mg tablet, sublingual 0.4 mg SUBLINGUAL Q5M PRN (Reason: Chest Pain) RF: 0 omeprazole 40 mg capsule,delayed release(DR/EC) 40 mg PO DAILY@07 RF: 0 potassium chloride 10 mEq capsule, extended release 10 meq PO BID@ RF: 0 sotalol 80 mg tablet 80 mg PO BID@ RF: 0 tamsulosin 0.4 mg capsule 0.4 mg PO DAILY@07 RF: 0 warfarin 2.5 mg tablet 2.5 mg PO DAILY@1700 RF: 0 furosemide 20 mg tablet 20 mg PO DAILY@07 RF: 0 fluticasone propion-salmeterol [Advair Diskus] 500-50 mcg/dose blister with device 1 inh INHALATION BID RF: 0 albuterol 90 mcg/actuation aerosol 90 mcg INHALATION UNK PRN (Reason: Shortness Of Breath) RF: 0 spironolactone 25 mg tablet 25 mg PO BID@, RF: 0 levothyroxine 25 mcg tablet 25 mcg PO DAILY@07 RF: 0 ferrous sulfate 325 mg (65 mg iron) tablet 325 mg PO DAILY@07 RF: 0 latanoprost 0.005 % Drops 1 drp OPHTHALMIC (EYE) BEDTIME RF: 0 hydrocodone-acetaminophen 5-325 mg Tablet 1 tab PO BID PRN (Reason: Pain) RF: 0 metoprolol tartrate 75 mg tablet 75 mg PO BID@, RF: 0 Discharge Orders: Discharge ED (Routine); Ordered 10/09/20 Ordered By: Jean Paul Dumont Referrals: Jennifer Ackerman MD [Primary Care Provider] - Discharge Diet: Advance as tolerated Discharge Activity: Resume usual activity Patient Instructions: Contusion, Wrist Fracture in Adults (ED), Patellar Fracture (ED), Knee Immobilizer (ED), Opioid Safety Activity Restrictions/Additional Instructions: You have fallen and hit your head and you have a hematoma there. Please continue to watch it and it should go down over the next week or so. Follow-up with your primary care physician to discuss this further and continue taking your warfarin as you normally do. You also have fractured your left wrist and left knee. Please continue to wear the splints as they are in the ED and follow-up with orthopedic surgery. I have placed a case management referral to help you get an appointment with an orthopedic surgeon within a week. They should be calling you today or tomorrow to help set this up. Return to the ER with worsening symptoms. Also your potassium is elevated. Please hold your potassium pills for the next 2 days and have your primary care physician check it then. Coding Level of Care Code ED Gridcap Machine Operator for [place] Fwd Exam Comprehensive
[2020-10-09 12:27] LABS: INR 1.91 (0.8-1.2)
--- NOTE | 2020-10-09 12:50 | PC.NURSE ---
Patient transported to CT
[2020-10-09] MEDS: acetaminophen 325 mg Tablet 650 MG PO (13:24)
[2020-10-09 13:28] LABS: Basophils % 0.1 %; Eosinophils # 0.1 10^3/uL (0.0-0.8); Eosinophils % 1.3 %; Hematocrit 45.9 % (42.0-52.0); Hemoglobin 13.3 g/dL (11.7-16.6); Lymphocytes # 1.4 10^3/uL (0.8-4.8); Lymphocytes % 15.6 %; Mean Corpuscular Hemoglobin 24.8 pg (28.0-34.0); Mean Corpuscular Volume 85.5 fL (80-94); Monocytes # 1.2 10^3/uL (0.2-0.9); Monocytes % 13.4 %; Neutrophils # 6.02 10^3/uL (1.8-7.7); Neutrophils % 69.1 %; Nucleated Red Blood Cells % 0 %; Red Blood Count 5.37 10^6/uL (4.1-5.3); Red Cell Distribution Width 20.2 % (12.1-15.1); White Blood Count 8.7 10^3/uL (4.0-10.0)
[2020-10-09 13:37] LABS: Mean Platelet Volume 9.4 fL (7.4-10.4)
[2020-10-09 13:41] LABS: Platelet Count 151 10^3/cmm (130-400)
--- NOTE | 2020-10-09 13:52 | ECG_ITS ---
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 Measurements Intervals [place] Rate: 100 P: [place]: QRS: 15 QRSD: 151 T: 164 QT: 384 QTc: 497 Interpretive Statements ATRIAL FIBRILLATION WITH RAPID VENTRICULAR RESPONSE LEFT BUNDLE BRANCH BLOCK [120+ ms QRS DURATION, 80+ ms Q/S IN V1/V2, 85+ ms R IN I/aVL/V5/V6] Compared to ECG 10/09/2020 12:40:39 Left bundle-branch block now present Ventricular premature complex(es) no longer present Aberrant conduction of supraventricular beat(s) no longer present Intraventricular conduction delay no longer present Electronically Signed On 10-09-2020 20:24:06 CDT by Gen Brown M.D. [id number]
[2020-10-09 15:09] VITALS: PULSE 80; RESP 18; O2SAT 97
--- NOTE | 2020-10-09 15:20 | DCPLANNER ---
manager field service had message to schedule a follow up appointment for patient with ortho. manager field service called the ortho clinic, spoke with Kim, gave clinic patients information. manager field service was told that patients information would be printed and reviewed. Clinic will call patient with appointment information.
[2020-10-09 15:56] VITALS: BP 130/86; PULSE 99; RESP 18; O2SAT 99
[2020-10-09 15:59] LABS: Troponin 5 2HR 18.83 ng/L (0-15)
[2020-10-09 16:02] LABS: Troponin 5 2HR Delta -0.17 ABS# (0-10)
--- NOTE | 2020-10-19 13:45 | DCPLANNER ---
Patient had a follow up appointment scheduled for 10.17.[address] Rollins at [facility] - patient did attend appointment.
== END 2020-10-09 15:57 | disposition home or self-care (01) ==
PROVIDERS: Emergency Provider Family Medicine; PCP Family Medicine
DX: S00.93XA Contusion of unspecified part of head, initial encounter (principal); S52.502A Unspecified fracture of the lower end of left radius, initial encounter for closed fracture; S52.612A Displaced fracture of left ulna styloid process, initial encounter for closed fracture; S82.002A Unspecified fracture of left patella, initial encounter for closed fracture; E87.5 Hyperkalemia; Z79.01 Long term (current) use of anticoagulants; I10 Essential (primary) hypertension; I48.20 Chronic atrial fibrillation, unspecified; J44.9 Chronic obstructive pulmonary disease, unspecified; E78.2 Mixed hyperlipidemia; Z95.0 Presence of cardiac pacemaker; Z87.891 Personal history of nicotine dependence; W01.0XXA Fall on same level from slipping, tripping and stumbling without subsequent striking against object, initial encounter
CPT/HCPCS: 29125; 36415; 70450; 70486; 71045; 72125; 73070; 73100; 73120; 73523; 73562; 80053; 84484; 85025; 85610; 93005; 99285

== ENCOUNTER → 2020-10-17 08:27 | Outpatient (BNVA) | payer MEDICARE, OTHER, SELFPAY | PROVIDERS: PCP Family Medicine; Referring Provider Family Medicine; Visit Provider Specialist | DX: S82.032A Displaced transverse fracture of left patella, initial encounter for closed fracture (principal); X58.XXXA Exposure to other specified factors, initial encounter; S52.502A Unspecified fracture of the lower end of left radius, initial encounter for closed fracture; Z46.89 Encounter for fitting and adjustment of other specified devices; S82.092D Other fracture of left patella, subsequent encounter for closed fracture with routine healing; S52.592D Other fractures of lower end of left radius, subsequent encounter for closed fracture with routine healing; S52.692D Other fracture of lower end of left ulna, subsequent encounter for closed fracture with routine healing; X58.XXXD Exposure to other specified factors, subsequent encounter | CPT/HCPCS: 73110; 73562; 97760; L1832; L3982 ==

== ENCOUNTER 2020-10-17 11:01 | Outpatient (CLI) | payer MEDICARE, OTHER, SELFPAY | END 2020-10-17 11:02 | disposition home or self-care (01) | LOC: SPT 11:01 | PROVIDERS: PCP Family Medicine; Visit Provider Specialist | DX: Z46.89 Encounter for fitting and adjustment of other specified devices (principal); S82.092D Other fracture of left patella, subsequent encounter for closed fracture with routine healing; S52.592D Other fractures of lower end of left radius, subsequent encounter for closed fracture with routine healing; S52.692D Other fracture of lower end of left ulna, subsequent encounter for closed fracture with routine healing; X58.XXXD Exposure to other specified factors, subsequent encounter | CPT/HCPCS: 97760; L1832; L3982 ==

== ENCOUNTER → 2020-11-01 11:26 | Outpatient (BNVA) | payer MEDICARE, OTHER, SELFPAY | PROVIDERS: PCP Family Medicine; Visit Provider Specialist | DX: S52.502D Unspecified fracture of the lower end of left radius, subsequent encounter for closed fracture with routine healing (principal); S52.602D Unspecified fracture of lower end of left ulna, subsequent encounter for closed fracture with routine healing; S82.002D Unspecified fracture of left patella, subsequent encounter for closed fracture with routine healing; W19.XXXD Unspecified fall, subsequent encounter | CPT/HCPCS: 73110; 73562 ==

== ENCOUNTER → 2020-12-03 13:53 | Outpatient (BNVA) | payer MEDICARE, OTHER, SELFPAY | PROVIDERS: PCP Family Medicine; Visit Provider Specialist | DX: S52.502A Unspecified fracture of the lower end of left radius, initial encounter for closed fracture (principal); S52.602A Unspecified fracture of lower end of left ulna, initial encounter for closed fracture; S82.002A Unspecified fracture of left patella, initial encounter for closed fracture; X58.XXXA Exposure to other specified factors, initial encounter; Z46.89 Encounter for fitting and adjustment of other specified devices; S82.092D Other fracture of left patella, subsequent encounter for closed fracture with routine healing; X58.XXXD Exposure to other specified factors, subsequent encounter | CPT/HCPCS: 73110; 73560; 73562; 73565; 97760; L1812 ==

== ENCOUNTER 2020-12-03 15:32 | Outpatient (CLI) | payer MEDICARE, OTHER, SELFPAY | END 2020-12-03 15:33 | disposition home or self-care (01) | LOC: SPT 15:33 | PROVIDERS: PCP Family Medicine; Visit Provider Specialist | DX: Z46.89 Encounter for fitting and adjustment of other specified devices (principal); S82.092D Other fracture of left patella, subsequent encounter for closed fracture with routine healing; X58.XXXD Exposure to other specified factors, subsequent encounter | CPT/HCPCS: 97760; L1812 ==

== ENCOUNTER → 2021-01-02 13:01 | Outpatient (BNVA) | payer MEDICARE, OTHER, SELFPAY | PROVIDERS: PCP Family Medicine; Visit Provider Specialist | DX: S52.502D Unspecified fracture of the lower end of left radius, subsequent encounter for closed fracture with routine healing (principal); S52.602D Unspecified fracture of lower end of left ulna, subsequent encounter for closed fracture with routine healing; S82.035D Nondisplaced transverse fracture of left patella, subsequent encounter for closed fracture with routine healing; X58.XXXD Exposure to other specified factors, subsequent encounter | CPT/HCPCS: 73110; 73560; 73565 ==

== ENCOUNTER 2021-12-05 16:09 | Emergency (ER) | payer MEDICARE, OTHER, SELFPAY ==
[2021-12-05 16:15] VITALS: BP 134/72; PULSE 83; RESP 20; TEMP 37.1; O2SAT 96; BMI 39.0
--- NOTE | 2021-12-05 16:35 | ECG_ITS ---
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 Measurements Intervals [place] Rate: 90 P: [place]: QRS: 3 QRSD: 154 T: 136 QT: 395 QTc: 486 Interpretive Statements ATRIAL FIBRILLATION LEFT BUNDLE BRANCH BLOCK [120+ ms QRS DURATION, 80+ ms Q/S IN V1/V2, 85+ ms R IN I/aVL/V5/V6] Compared to ECG 10/09/2020 14:43:57 No significant changes Electronically Signed On 12-05-2021 22:53:19 CDT by Rahat Rojas M.D. [id number]
[2021-12-05 17:32] LABS: Troponin(5th) Baseline 10 ng/L (0-15)
[2021-12-05 17:42] LABS: Alanine Aminotransferase 39 U/L (0-41); Albumin Level 4.1 g/dL (3.5-5.2); Alkaline Phosphatase 75 IU/L (40-130); Anion Gap 14.1 (5-19); Aspartate Amino Transferase 23 U/L (0-40); Blood Urea Nitrogen 20 mg/dL (8-23); Carbon Dioxide 34 mmol/L (22-29); Chloride 95 mmol/L (98-107); Globulin 2.8 g/dL (1.3-4.6); Glucose 101 mg/dL (65-115); NT Pro B Type Natriuretic Pept 843 pg/mL (0-450); Osmolality Calculated 289 mOsm/kg (285-295); Potassium 5.1 mmol/L (3.5-5.1); Sodium 138 mmol/L (136-145); Total Bilirubin 0.3 mg/dL (0.15-1.2); Total Protein 6.9 g/dL (6.6-8.7)
[2021-12-05] MEDS: sodium chloride 0.9% 500 ML IV (18:04)
--- NOTE | 2021-12-05 18:12 | XRR_ITS ---
PROCEDURE INFORMATION: Exam: XR Chest Exam date and time: 12/05/2021 5:45 PM Age: 81 years old Clinical indication: Shortness of breath; Prior surgery; Surgery date: 6+ months; Surgery type: Pacemaker; Additional info: SOB TECHNIQUE: Imaging protocol: XR of the chest. Views: 1 view. COMPARISON: CR XR chest 1V portable [id number] 10/09/2020 11:56 AM FINDINGS: Tubes, catheters and devices: There is a permanent pacemaker present. Lungs: Linear atelectasis versus fibrosis at the right lung base. No consolidative pulmonary infiltrate noted. Pleural spaces: No pleural effusion. No pneumothorax. Heart/Mediastinum: No cardiomegaly. Bones/joints: Unremarkable. XR/XR chest 1V portable [id number] IMPRESSION: 1. Linear atelectasis versus fibrosis at the right lung base. No consolidative pulmonary infiltrate noted. Overall lung aeration has improved when compared to 10/09/2020. 2. No new abnormality demonstrated, when compared to the prior study.
--- NOTE | 2021-12-05 18:35 | ECG_ITS ---
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 Measurements Intervals [place] Rate: 91 P: [place]: QRS: 4 QRSD: 152 T: 171 QT: 408 QTc: 502 Interpretive Statements ATRIAL FIBRILLATION LEFT BUNDLE BRANCH BLOCK [120+ ms QRS DURATION, 80+ ms Q/S IN V1/V2, 85+ ms R IN I/aVL/V5/V6] Compared to ECG 12/05/2021 17:23:13 No significant changes Electronically Signed On 12-05-2021 22:53:49 CDT by Rahat Rojas M.D. [id number]
--- NOTE | 2021-12-05 18:57 | CTR_ITS ---
PROCEDURE INFORMATION: Exam: CTA Chest With Contrast Exam date and time: 12/05/2021 8:17 PM Age: 81 years old Clinical indication: Shortness of breath; Prior surgery; Surgery date: 6+ months; Surgery type: Pacemaker insertion TECHNIQUE: Imaging protocol: Computed tomographic angiography of the chest with contrast. 3D rendering (Not supervised by radiologist): MIP and/or 3D reconstructed images were created by the technologist. Radiation optimization: All CT scans at this facility use at least one of these dose optimization techniques: automated exposure control; mA and/or kV adjustment per patient size (includes targeted exams where dose is matched to clinical indication); or iterative reconstruction. Contrast material: OMNI 300; Contrast volume: 90 ml; Contrast route: INTRAVENOUS (IV); COMPARISON: CR XR chest 1V portable [id number] 12/05/2021 5:45 PM RADIATION DOSE METRICS: Total DLP (mGy-cm): 543.68 FINDINGS: Tubes, catheters and devices: Left chest ICD is present. Pulmonary arteries: Normal. No pulmonary emboli. Aorta: Unremarkable. No aortic aneurysm. No aortic dissection. Lungs: Emphysematous lung changes. Negative for space consolidation. Negative for bronchiectasis. Mild diffuse bronchial wall thickening most pronounced in the lower lobes. No peripheral honeycombing. No bronchiectasis. Pleural spaces: Unremarkable. No pneumothorax. No pleural effusion. Heart: Unremarkable. No cardiomegaly. No pericardial effusion. Lymph nodes: Unremarkable. No enlarged lymph nodes. Bones/joints: Unremarkable. No acute fracture. Soft tissues: Unremarkable. CT/CT angio chest PE [facility] [id number] IMPRESSION: Negative CTA chest. No acute abnormality.
--- NOTE | 2021-12-05 19:07 | ED_ITS ---
HPI - SOB/Dyspnea General: Chief Complaint: Shortness of Breath/Dyspnea Stated Complaint: SOB Time Seen by Provider: 12/05/21 16:16 History of Present Illness: HPI Narrative: 81-year-old male presents emergency department chief complaint of progressive shortness of breath and difficulty breathing has been ongoing progressively getting worse over the last several days patient does have a longstanding history of COPD, his made him come in as there is concerns of potentially underlying pneumonia. Patient does have a pacemaker in which he does have known cardiac issues he does not report any palpitations or chest pain or any shortness of breath. Associated symptoms: Deny abdominal pain, chest pain, extremity pain, fever(s), nausea, palpitations or vomiting Review of Systems General: Reports: 10 or more systems reviewed and unremarkable except in HPI and below Const: Denies: fever(s), chills, fatigue or malaise Eyes: Denies: change in vision or blurry vision Card: Denies: chest pain or palpitations Resp: Reports: dyspnea, productive cough, non-productive cough and wheezing GI: Denies: abdominal pain, nausea or vomiting : Denies: flank pain Musc: Denies: extremity pain or extremity swelling Skin/Breast: Denies: rash or pruritus Neuro: Denies: headache(s) Psych: Denies: anxiety or depression Joel/Lymph: Denies: easy bleeding All/Imm: Denies: urticaria, throat swelling or facial swelling PFSH ED PFSH: Medical History A-fib Anxiety disorder Benign essential hypertension with target blood pressure below 140/90 Chest pain Chronic atrial fibrillation Chronic episodic atrial fibrillation COPD (chronic obstructive pulmonary disease) Dyslipidemia (high LDL; low HDL) Leg swelling Mixed hyperlipidemia Peripheral neuropathy PVD (peripheral vascular disease) Retinal tear of left eye SOB (shortness of breath) Surgical History History of permanent cardiac pacemaker placement Family History Brother CAD (coronary artery disease) Mother Cancer Father Cancer Sister Cancer Family/Other Cancer Denies family history of Diabetes Clotting disorder Dementia Chronic kidney disease (CKD) Suicide Anesthesia complication Bleeding disorder Lung disease Stroke Social History Smoking and tobacco status: former smoker Alcohol intake: never Physical Exam Const: COMMON NORMALS: no acute distress, patient oriented x3 and healthy appearing HENMT: COMMON NORMALS: normocephalic and atraumatic HEAD & SCALP: normocephalic and atraumatic Eye: COMMON NORMALS: Equal, round and reactive pupils present and EOMs intact bilaterally PUPIL: Yes Equal, round and reactive pupils present Neck/C-Spine: COMMON NORMALS: full ROM, supple and no JVD Lymph: LYMPHATIC: no lymphadenopathy noted Chest: COMMONS NORMALS: normal inspection of the chest and normal palpation of entire chest wall Resp: COMMON NORMALS: No retractions; negative for clear to auscultation bilaterally (Reduced breath sounds appreciated bilaterally with mild expiratory wheezing) EFFORT & INSPECTION: Yes able to speak in complete sentences and Yes symmetric chest movement AUSCULTATION: not clear to auscultation bilaterally (Reduced breath sounds appreciated bilaterally with mild expiratory wheezing) Cardio: COMMON NORMALS: no JVD, regular rate and regular rhythm RATE: r egular rate RHYTHM: regular rhythm GI: COMMON NORMALS: Normal to inspection, nondistended, normoactive bowel sounds present, Soft to palpation and non-tender INSPECTION: Yes normal to inspection PALPATION: Yes Soft to palpation : COMMON NORMALS: Yes no CVA tenderness BLADDER/KIDNEY EXAM: Yes no CVA tenderness Back/Pelvis: COMMON NORMALS: no CVA tenderness Extremity: COMMON NORMALS: normal to inspection and full ROM Neuro: COMMON NORMALS: patient oriented x3, CN's II-XII intact bilaterally, moves all extremities and no focal motor deficits Psych: COMMON NORMALS: mental status grossly normal, Normal thought process present, cooperative and normal affect THOUGHT PROCESS: Normal thought process present Skin: COMMON NORMALS: no rashes or lesions noted GENERAL SKIN EXAM: no rashes or lesions noted Course Vital Signs: Vital signs: Vital Signs Temperature 98.7 F 12/05/21 16:15 Pulse Rate 92 12/05/21 20:41 Respiratory Rate 24 H 12/05/21 20:41 Blood Pressure 127/68 12/05/21 20:41 Pulse Oximetry 95 12/05/21 20:41 MDM - SOB/Dyspnea Medical Decision Making Due to the patient's condition IV was established labwork and imaging was obtained we will continue to follow underlying concerns of both CHF exacerbation versus COPD versus other prominent Patient's lab work and imaging came back reassuring patient patient is he has both a COPD exacerbation and CHF not exacerbated today started on additional medication for associated symptoms advised further follow-up primary care in 2 to 3 days which is advised to return the interim if any of the symptoms persist or worsen. Lab Data : 12/05/21 19:00 12/05/21 16:45 Labs/Radiology: Radiology Impressions Chest X-Ray 12/05/21 18:12 IMPRESSION: 1. Linear atelectasis versus fibrosis at the right lung base. No consolidative pulmonary infiltrate noted. Overall lung aeration has improved when compared to 10/09/2020. 2. No new abnormality demonstrated, when compared to the prior study. Chest CTA 12/05/21 18:57 IMPRESSION: Negative CTA chest. No acute abnormality. Laboratory Results WBC 9.5 10^3/uL (4.0-10.0) 12/05/21 19:00 Corrected WBC Cancelled 12/05/21 16:45 RBC 5.09 10^6/uL (4.1-5.3) 12/05/21 19:00 Hgb 15.0 g/dL (11.7-16.6) 12/05/21 19:00 Hct 49.0 % (42.0-52.0) 12/05/21 19:00 MCV 96.3 fl (80-94) H 12/05/21 19:00 MCH 29.5 pg (28.0-34.0) 12/05/21 19:00 MCHC 30.6 g/dL (30.0-36.0) 12/05/21 19:00 RDW 14.3 % (12.1-15.1) 12/05/21 19:00 Plt Count 199 10^3/cmm (130-400) 12/05/21 19:00 MPV 10.6 fL (7.4-10.4) H 12/05/21 19:00 Gran % Cancelled 12/05/21 16:45 Neut % (Auto) 71.4 % 12/05/21 19:00 Lymph % (Auto) 16.4 % 12/05/21 19:00 Chaves % (Auto) 10.5 % 12/05/21 19:00 Eos % (Auto) 0.1 % 12/05/21 19:00 Baso % (Auto) 0.2 % 12/05/21 19:00 Neut # (Auto) 6.75 10^3/uL (1.8-7.7) 12/05/21 19:00 Lymph # (Auto) 1.6 10^3/uL (0.8-4.8) 12/05/21 19:00 Chaves # (Auto) 1.0 10^3/uL (0.2-0.9) H 12/05/21 19:00 Eos # (Auto) 0.0 10^3/uL (0.0-0.8) 12/05/21 19:00 Baso # (Auto) 0.0 10^3/uL (0.0-0.1) 12/05/21 19:00 Absolute Gran (auto) Cancelled 12/05/21 16:45 Nucleated RBC % (auto) 0 % 12/05/21 19:00 Nucleated RBCs # 0.0 /100WBC 12/05/21 19:00 Sodium 138 mmol/L (136-145) 12/05/21 16:45 Potassium 5.1 mmol/L (3.5-5.1) 12/05/21 16:45 Chloride 95 mmol/L (98-107) L 12/05/21 16:45 Carbon Dioxide 34 mmol/L (22-29) H 12/05/21 16:45 Anion Gap 14.1 (5-19) 12/05/21 16:45 BUN 20 mg/dL (8-23) 12/05/21 16:45 Creatinine 0.9 mg/dL (0.7-1.2) 12/05/21 16:45 GFR Calculation Not Reportable 12/05/21 16:45 Glucose 101 mg/dL (65-115) 12/05/21 16:45 Calculated Osmolality 289 mOsm/kg (285-295) 12/05/21 16:45 Calcium 9.0 mg/dL (8.5-10.5) 12/05/21 16:45 Total Bilirubin 0.3 mg/dL (0.15-1.2) 12/05/21 16:45 AST 23 U/L (0-40) 12/05/21 16:45 ALT 39 U/L (0-41) 12/05/21 16:45 Alkaline Phosphatase 75 IU/L (40-130) 12/05/21 16:45 Troponin T Baseline 10 ng/L (0-15) 12/05/21 16:45 Troponin T 120 Minute 9.89 ng/L (0-15) 12/05/21 18:45 Delta Troponin T -0.11 ABS# (0-10) L 12/05/21 18:45 NT-Pro-B Natriuret Pep 843 pg/mL (0-450) H 12/05/21 16:45 Total Protein 6.9 g/dL (6.6-8.7) 12/05/21 16:45 Albumin 4.1 g/dL (3.5-5.2) 12/05/21 16:45 Globulin 2.8 g/dL (1.3-4.6) 12/05/21 16:45 Discharge Plan Discharge Patient Disposition: Home Clinical Impression: COPD with acute exacerbation, Congestive heart failure Condition: Stable Prescriptions: New prednisone 20 mg tablet 20 mg PO BID 3 Days Qty: 6 0RF Ventolin HFA 90 mcg/actuation HFA aerosol inhaler 1 inh inhalation Q6H PRN (Reason: shortness of breath or wheezing) Qty: 6.7 0RF Lasix 20 mg tablet 20 mg PO DAILY Qty: 4 0RF No Action albuterol sulfate 2.5 mg /3 mL (0.083 %) solution for nebulization 2.5 mg INHALATION Q4H PRN (Reason: Shortness Of Breath) 0RF finasteride 5 mg tablet 5 mg PO DAILY@1700 0RF omega 6-cwk-ynb-fish oil [Fish Oil] 1,000 mg (120 mg-180 mg) capsule 2 cap PO BID 0RF fluoxetine 20 mg capsule 20 mg PO DAILY@07 0RF lorazepam 1 mg tablet 0.5 mg PO TID PRN (Reason: Anxiety) 0RF multivitamin Tablet 1 tab PO DAILY@07 0RF nitroglycerin [Nitrostat] 0.4 mg tablet, sublingual 0.4 mg SUBLINGUAL Q5M PRN (Reason: Chest Pain) 0RF omeprazole 40 mg capsule,delayed release(DR/EC) 40 mg PO DAILY@07 0RF potassium chloride 10 mEq capsule, extended release 10 meq PO DAILY 0RF sotalol 80 mg tablet 80 mg PO BID@,17 0RF tamsulosin 0.4 mg capsule 0.4 mg PO DAILY@07 0RF warfarin 2.5 mg tablet 2.5 mg PO DAILY@1700 0RF furosemide 20 mg tablet 20 mg PO DAILY@07 0RF fluticasone propion-salmeterol [Advair Diskus] 500-50 mcg/dose blister with device 1 inh INHALATION BID 0RF albuterol 90 mcg/actuation aerosol 90 mcg INHALATION UNK PRN (Reason: Shortness Of Breath) 0RF spironolactone 25 mg tablet 25 mg PO BID@07,17 0RF ferrous sulfate 325 mg (65 mg iron) tablet 325 mg PO DAILY@07 0RF (DME) GILDA See Rx Instructions .Route .MEDSUPPLY Qty: 1 0RF Rx Instructions: As directed (DME) FAST FORM COCK UP SPLINT See Rx Instructions .Route .MEDSUPPLY Qty: 1 0RF Rx Instructions: As directed betamethasone dipropionate 0.05 % ointment 1 applic topical BID Qty: 45 2RF Rx Instructions: To elbows no more than 3wks/mo (DME) COCK UP SPLINT See Rx Instructions .Route .MEDSUPPLY Qty: 1 0RF Rx Instructions: As directed (DME) HINGED KNEE BRACE See Rx Instructions .Route .MEDSUPPLY Qty: 1 0RF Rx Instructions: As directed levothyroxine 75 mcg tablet 75 mcg PO DAILY 0RF metoprolol tartrate 50 mg tablet See Rx Instructions .ROUTE .COMPLEX Qty: 270 3RF Dose Instruction: TAKE ONE AND ONE HALF (1/2) TABLETS BY MOUTH TWICE DAILY Rx Instructions: TAKE ONE AND ONE HALF (1/2) TABLETS BY MOUTH TWICE DAILY hydrocodone-acetaminophen 5-325 mg Tablet 1 tab PO BID PRN (Reason: Pain) 0RF Discharge Orders: Discharge ED (Routine); Ordered 12/05/21 Ordered By: Ajay Hale Referrals: Jennifer Ackerman MD [Primary Care Provider] - Discharge Diet: Advance as tolerated Discharge Activity: Increase activity as tolerated Patient Instructions: COPD - Emphysema, Heart Failure (ED) Activity Restrictions/Additional Instructions: Follow-up with your primary care doctor in 2 to 3 days, take medications as prescribed and please return the interim if any of your symptoms persist or worse. Coding Level of Care Code ED Molding Technician for Chg Fwd Exam Comprehensive
[2021-12-05 19:11] LABS: Basophils % 0.2 %; Eosinophils % 0.1 %; Lymphocytes # 1.6 10^3/uL (0.8-4.8); Lymphocytes % 16.4 %; Mean Corpuscular HGB Conc 30.6 g/dL (30.0-36.0); Mean Corpuscular Hemoglobin 29.5 pg (28.0-34.0); Mean Corpuscular Volume 96.3 fl (80-94); Mean Platelet Volume 10.6 fL (7.4-10.4); Monocytes % 10.5 %; Neutrophils # 6.75 10^3/uL (1.8-7.7); Neutrophils % 71.4 %; Nucleated Red Blood Cells % 0 %; Platelet Count 199 10^3/cmm (130-400); Red Blood Count 5.09 10^6/uL (4.1-5.3); Red Cell Distribution Width 14.3 % (12.1-15.1); White Blood Count 9.5 10^3/uL (4.0-10.0)
[2021-12-05 19:18] LABS: Troponin 5 2HR 9.89 ng/L (0-15)
[2021-12-05 19:19] LABS: Troponin 5 2HR Delta -0.11 ABS# (0-10)
--- NOTE | 2021-12-05 19:37 | PC.NURSE ---
1919-Breathing treatment initiated. Pre VS 87pulse, 93 sat on 2.5 lpm via nc , BP 132/80, Resp 28 Lung sounds: Expiratory wheeze, Ronchi, Crackles throughout 1929 Post RT treatment: minimal improvement after breathing treatment. Sat 93% on 3 lpm via nc, HR 93, Respirations 22
[2021-12-05] MEDS: iohexol 300 mg/mL 100 mL Btl IV (20:29)
[2021-12-05] MEDS: FUROsemide 10 mg/mL SDV 4mL 40 MG IVP (20:31)
[2021-12-05 20:41] VITALS: BP 127/68; PULSE 92; RESP 24; O2SAT 95
[2021-12-05 22:45] VITALS: BP 125/65; RESP 22; TEMP 36.8; O2SAT 95
--- NOTE | 2021-12-05 23:02 | PC.NURSE ---
Patient discharged home. Home O2 eval requiring baseline oxygen requirement of 3 Liters NC. Patient and spouse educated on discharge information including home medication and new medication administration with adverse affects discussed and follow up appointment with PCP. IV removed with catheter in tact. Pressure dressing applied. Patient and spouse verbally confirmed understanding education. Patient was transported to personal vehicle with spouse via wheelchair on 3 liter oxygen by this nurse.
[2021-12-05 23:09] VITALS: BP 125/65; RESP 22; TEMP 36.8; O2SAT 95
== END 2021-12-05 22:50 | disposition home or self-care (01) ==
PROVIDERS: Emergency Provider Emergency Medicine; PCP Family Medicine
DX: J44.1 Chronic obstructive pulmonary disease with (acute) exacerbation (principal); I48.20 Chronic atrial fibrillation, unspecified; Z95.0 Presence of cardiac pacemaker; Z87.891 Personal history of nicotine dependence; I50.9 Heart failure, unspecified; Z79.51 Long term (current) use of inhaled steroids; Z79.01 Long term (current) use of anticoagulants; Z79.891 Long term (current) use of opiate analgesic
CPT/HCPCS: 71045; 71046; 71275; 80053; 83880; 84484; 85025; 93005; 96361; 96374; 96375; 99285; J1940; J2930; J7040; Q9967

== ENCOUNTER → 2022-01-03 08:10 | Outpatient (BNVA) | payer MEDICARE, OTHER, SELFPAY | PROVIDERS: PCP Family Medicine | DX: Z45.010 Encounter for checking and testing of cardiac pacemaker pulse generator [battery] (principal) | CPT/HCPCS: 93280 ==

== ENCOUNTER 2022-03-07 09:27 | Emergency (ER) | payer MEDICARE, OTHER, SELFPAY ==
[2022-03-07] VITALS (20 sets, daily range): BP systolic 122–149; BP diastolic 67–120; PULSE 82–103; RESP 16–33; TEMP 36.5; O2SAT 61–97; BMI 39.0
--- NOTE | 2022-03-07 09:29 | ED_ITS ---
HPI - SOB/Dyspnea General: Chief Complaint: Shortness of Breath/Dyspnea Stated Complaint: RESPIRATORY DISTRESS Time Seen by Provider: 03/07/22 09:28 History of Present Illness: HPI Narrative: Mr. Colindres is a 81-year-old gentleman with significant past medical history of heart failure, COPD with chronic hypoxic respiratory failure who presents to the emergency department due to shortness of breath. Symptoms have been progressively worsening for some period of time though the patient has difficulty articulating exactly when. He endorses marked dyspnea on exertion and limitations in ability to walk across the room. He denies infectious symptoms or associated chest pain. Intensity symptoms is moderate to severe. No other specific changes in health, exacerbating, or alleviating factors identified. Onset (ago): day(s) Timing: progressively worsening Severity: severe Exacerbating factors: lying flat and exertion Review of Systems General: Reports: 10 or more systems reviewed and unremarkable except in HPI and below PFSH ED PFSH: Medical History A-fib Anxiety disorder Benign essential hypertension with target blood pressure below 140/90 Chest pain Chronic atrial fibrillation Chronic episodic atrial fibrillation COPD (chronic obstructive pulmonary disease) Dyslipidemia (high LDL; low HDL) Leg swelling Mixed hyperlipidemia Peripheral neuropathy PVD (peripheral vascular disease) Retinal tear of left eye SOB (shortness of breath) Surgical History History of permanent cardiac pacemaker placement Family History Brother CAD (coronary artery disease) Mother Cancer Father Cancer Sister Cancer Family/Other Cancer Denies family history of Diabetes Clotting disorder Dementia Chronic kidney disease (CKD) Suicide Anesthesia complication Bleeding disorder Lung disease Stroke Social History Smoking and tobacco status: former smoker Alcohol intake: never Physical Exam Const: COMMON NORMALS: alert GENERAL APPEARANCE: cooperative and well developed HENMT: COMMON NORMALS: normocephalic and atraumatic HEAD & SCALP: normocephalic and atraumatic THROAT: posterior oropharynx normal Eye: COMMON NORMALS: conjunctivae normal CONJUNCTIVA: Yes conjunctivae normal SCLERA: sclerae normal OTHER: Right eye constricted, left eye 4 mm with inferior iris abnormality with extension of the pupil roughly, shaped- chronic Neck/C-Spine: COMMON NORMALS: supple GENERAL: Yes trachea midline Resp: COMMON NORMALS: normal respiratory effort EFFORT & INSPECTION: Yes able to speak in complete sentences AUSCULTATION: diminished lung sounds Cardio: COMMON NORMALS: regular rate and regular rhythm RATE: regular rate RHYTHM: regular rhythm GI: COMMON NORMALS: Soft to palpation PALPATION: Yes Soft to palpation and No Tenderness to palpation present (GI) Extremity: GENERAL: Yes normal exam except as noted and No edema Neuro: COMMON NORMALS: moves all extremities SENSORIUM/ORIENTATION: Yes alert and No Orientation impaired Psych: COMMON NORMALS: mental status grossly normal and Normal thought process present THOUGHT PROCESS: Normal thought process present Course ED course: - Patient was seen and evaluated by me at bedside - Patient placed on cardiac monitors, IV access obtained - Initial evaluation notable for exam as above. - Labs and xrays personally interpreted by me. EKG shows atrial fibrillation with controlled ventricular response, left BBB. No STEMI. -RT treatment ordered. Steroids and antibiotics given. - Labs notable for no leukocytosis, normal hemoglobin. Thrombocytopenia of uncertain etiology. Metabolic panel without acute derangement requiring intervention. Delta troponin negative. BNP not significantly elevated. - Imaging notable for left lower opacity concerning for pneumonia. CT head without acute intracranial process. - Upon serial reexamination after treatment the patient was significantly improved - Based on patient history, evaluation, and testing as interpreted the most likely cause of the patient's condition is pneumonia. Patient is nontoxic in appearance and at baseline oxygen. - The results of ED evaluation were discussed with the patient including prescriptions and/or symptomatic cares (if applicable) including appropriate and responsible use, followup plan, and return precautions. The patient verbalized understanding and felt safe for discharge. - Patient discharged in satisfactory condition. Note: Click bubbles or prepopulated grimes in note writing are used for assistance with data collection and billing and are inherently more limited than narrative and other text portions of this note. Please use narrative for additional clinical history and defer to narrative/free test for any case of contradictory information. If information appears in only free text or click bubble it should be considered present or absent as reported. Please contact note journalists and other writers for clarifications of clinical information or contradictory information. MDM is a brief summary, contradictory or erroneous seeming information should be clarified and full note should be reviewed. Vital Signs: Vital signs: Vital Signs Temperature 97.7 F 03/07/22 09:31 Pulse Rate 82 03/07/22 13:56 Respiratory Rate 16 03/07/22 13:56 Blood Pressure 131/89 03/07/22 13:56 Pulse Oximetry 93 03/07/22 13:56 Oxygen Delivery Me thod 03/07/22 09:55 Oxygen Flow Rate 3 03/07/22 09:55 MDM - SOB/Dyspnea Medical Decision Making 81-year-old male who was poor historian presenting with respiratory symptoms. Nontoxic in appearance and at baseline oxygen. Otherwise chronic findings on exam. Satisfactory for outpatient management of pneumonia with strict return precautions given. Medical Records I reviewed the patient's medical records. Lab Data I reviewed the patient's lab results. : 03/07/22 11:05 03/07/22 11:05 Labs/Radiology: Radiology Impressions Chest X-Ray 03/07/22 09:37 IMPRESSION: Mild patchy opacity at the lateral left base that may reflect developing pneumonia. Consider CT to better characterize if clinically warranted. Head CT 03/07/22 10:12 IMPRESSION: 1. 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 2. No acute intracranial hemorrhage is seen. 3. Mild senescent changes as above. Laboratory Results WBC 7.3 10^3/uL (4.0-10.0) 03/07/22 11:05 Corrected WBC Cancelled 03/07/22 10:09 RBC 5.18 10^6/uL (4.1-5.3) 03/07/22 11:05 Hgb 14.9 g/dL (11.7-16.6) 03/07/22 11:05 Hct 48.7 % (42.0-52.0) 03/07/22 11:05 MCV 94.0 fl (80-94) 03/07/22 11:05 MCH 28.8 pg (28.0-34.0) 03/07/22 11:05 MCHC 30.6 g/dL (30.0-36.0) 03/07/22 11:05 RDW 13.4 % (12.1-15.1) 03/07/22 11:05 Plt Count 89 10^3/cmm (130-400) L 03/07/22 11:05 MPV 12.1 fL (7.4-10.4) H 03/07/22 11:05 Gran % Cancelled 03/07/22 10:09 Neut % (Auto) 67.8 % 03/07/22 11:05 Lymph % (Auto) 16.1 % 03/07/22 11:05 Phillips % (Auto) 13.8 % 03/07/22 11:05 Eos % (Auto) 1.7 % 03/07/22 11:05 Baso % (Auto) 0.3 % 03/07/22 11:05 Neut # (Auto) 4.93 10^3/uL (1.8-7.7) 03/07/22 11:05 Lymph # (Auto) 1.2 10^3/uL (0.8-4.8) 03/07/22 11:05 Phillips # (Auto) 1.0 10^3/uL (0.2-0.9) H 03/07/22 11:05 Eos # (Auto) 0.1 10^3/uL (0.0-0.8) 03/07/22 11:05 Baso # (Auto) 0.0 10^3/uL (0.0-0.1) 03/07/22 11:05 Absolute Gran (auto) Cancelled 03/07/22 10:09 Nucleated RBC % (auto) 0 % 03/07/22 11:05 Nucleated RBCs # 0.0 /100WBC 03/07/22 11:05 Sodium 139 mmol/L (136-145) 03/07/22 11:05 Potassium 4.5 mmol/L (3.5-5.1) 03/07/22 11:05 Chloride 96 mmol/L (98-107) L 03/07/22 11:05 Carbon Dioxide 35 mmol/L (22-29) H 03/07/22 11:05 Anion Gap 12.5 (5-19) 03/07/22 11:05 BUN 19 mg/dL (8-23) 03/07/22 11:05 Creatinine 1.0 mg/dL (0.7-1.2) 03/07/22 11:05 GFR Calculation Not Reportable 03/07/22 11:05 Glucose 128 mg/dL (65-115) H 03/07/22 11:05 Calculated Osmolality 292 mOsm/kg (285-295) 03/07/22 11:05 Lactic Acid 1.4 mmol/L (0.5-2.2) 03/07/22 10:09 Calcium 9.6 mg/dL (8.5-10.5) 03/07/22 11:05 Total Bilirubin 0.4 mg/dL (0.15-1.2) 03/07/22 11:05 AST 15 U/L (0-40) 03/07/22 11:05 ALT 14 U/L (0-41) 03/07/22 11:05 Alkaline Phosphatase 77 U/L (40-130) 03/07/22 11:05 Troponin T Baseline 14 ng/L (0-15) 03/07/22 10:09 Troponin T 120 Minute 12.88 ng/L (0-15) 03/07/22 12:19 Delta Troponin T -1.12 ABS# (0-10) L 03/07/22 12:19 NT-Pro-B Natriuret Pep 498 pg/mL (0-450) H 03/07/22 11:05 Total Protein 6.7 g/dL (6.6-8.7) 03/07/22 11:05 Albumin 4.2 g/dL (3.5-5.2) 03/07/22 11:05 Globulin 2.5 g/dL (1.3-4.6) 03/07/22 11:05 Discharge Plan Discharge Patient Disposition: Home Clinical Impression: Pneumonia, Acute exacerbation of chronic obstructive airways disease Condition: Stable Prescriptions: New albuterol sulfate 90 mcg/actuation HFA aerosol inhaler 2 inh inhalation Q4H PRN (Reason: shortness of breath or wheezing) Qty: 8.5 2RF No Action albuterol sulfate 2.5 mg /3 mL (0.083 %) solution for nebulization 2.5 mg INHALATION Q4H PRN (Reason: Shortness Of Breath) finasteride 5 mg tablet 5 mg PO DAILY@1700 omega 7-wdr-wab-fish oil [Fish Oil] 1,000 mg (120 mg-180 mg) capsule 1 cap PO BID fluoxetine 20 mg capsule 20 mg PO DAILY@07 lorazepam 1 mg tablet 0.5 mg PO TID PRN (Reason: Anxiety) multivitamin Tablet 1 tab PO DAILY@07 nitroglycerin [Nitrostat] 0.4 mg tablet, sublingual 0.4 mg SUBLINGUAL Q5M PRN (Reason: Chest Pain) omeprazole 40 mg capsule,delayed release(DR/EC) 40 mg PO DAILY@07 potassium chloride 10 mEq capsule, extended release 10 meq PO DAILY sotalol 80 mg tablet 80 mg PO BID@07,17 tamsulosin 0.4 mg capsule 0.4 mg PO DAILY@07 warfarin 2.5 mg tablet 2.5 mg PO DAILY@1700 furosemide 20 mg tablet 20 mg PO BID fluticasone propion-salmeterol [Advair Diskus] 500-50 mcg/dose blister with device 1 inh INHALATION BID spironolactone 25 mg tablet 25 mg PO BID@07,17 ferrous sulfate 325 mg (65 mg iron) tablet 325 mg PO Q7D (DME) GILDA See Rx Instructions .Route .MEDSUPPLY Qty: 1 0RF Rx Instructions: As directed (DME) FAST FORM COCK UP SPLINT See Rx Instructions .Route .MEDSUPPLY Qty: 1 0RF Rx Instructions: As directed betamethasone dipropionate 0.05 % ointment 1 applic topical BID Qty: 45 2RF Rx Instructions: To elbows no more than 3wks/mo (DME) COCK UP SPLINT See Rx Instructions .Route .MEDSUPPLY Qty: 1 0RF Rx Instructions: As directed (DME) HINGED KNEE BRACE See Rx Instructions .Route .MEDSUPPLY Qty: 1 0RF Rx Instructions: As directed levothyroxine 75 mcg tablet 37.5 mcg PO DAILY metoprolol tartrate 50 mg tablet See Rx Instructions .ROUTE .COMPLEX Qty: 270 3RF Dose Instruction: TAKE ONE AND ONE HALF (1/2) TABLETS BY MOUTH TWICE DAILY Rx Instructions: TAKE ONE AND ONE HALF (1/2) TABLETS BY MOUTH TWICE DAILY hydrocodone-acetaminophen 5-325 mg Tablet 1 tab PO BID PRN (Reason: Pain) Discharge Orders: Discharge ED (Routine); Ordered 03/07/22 Ordered By: Suhail Camarena Referrals: Jennifer Ackerman MD [Primary Care Provider] - Discharge Diet: Usual diet Discharge Activity: Increase activity as tolerated Patient Instructions: COPD (Chronic Obstructive Pulmonary Disease) (ED), Pneumonia (ED) Activity Restrictions/Additional Instructions: Thank you for visiting the emergency department. You were seen evaluated for shortness of breath. The most likely cause of your symptoms is pneumonia with exacerbation of underlying COPD. You will be treated with antibiotics and ster oids. Additionally for the next 24 hours please use your albuterol inhaler scheduled 2 puffs every 4 hours followed by 24 hours of 2 puffs every 6 hours followed by 24 hours of 2 puffs every 8 hours and then resume normal schedule. Please return to the emergency department for worsening symptoms or anything else that you are concerned about and feel needs emergency department evaluation. Coding Level of Care Code ED Machine Stitcher for Carroll Jang Exam Comprehensive
--- NOTE | 2022-03-07 09:37 | ECG_ITS ---
[facility] Test Date: 2022-03-07 Pat Name: Marcial Colindres Department: Room: Gender: Male Board Certified Orthodontist: : 1940 Requested By: Suhail Camarena Order Number: [id number] Hermelinda MD: Rahat Rojas M.D. Measurements Intervals [place] Rate: 94 P: MA: QRS: 9 QRSD: 156 T: 154 QT: 407 QTc: 510 Interpretive Statements ATRIAL FIBRILLATION LEFT BUNDLE BRANCH BLOCK [120+ ms QRS DURATION, 80+ ms Q/S IN V1/V2, 85+ ms R IN I/aVL/V5/V6] Compared to ECG 12/05/2021 18:24:15 No significant changes Electronically Signed On 03-07-2022 17:46:19 CDT by Rahat Rojas M.D. [id number]
--- NOTE | 2022-03-07 09:37 | XRR_ITS ---
PROCEDURE INFORMATION: Exam: XR Chest Exam date and time: 03/07/2022 10:22 AM Age: 81 years old Clinical indication: Shortness of breath. Pacemaker. TECHNIQUE: Imaging protocol: Radiologic exam of the chest. Views: 1 view. COMPARISON: CR XR chest 1V portable [id number] 12/05/2021 5:45 PM FINDINGS: Tubes, catheters and devices: A left subclavian pacer is again seen. Lungs: Subsegmental atelectasis or scarring at the right base. There is mild patchy opacity at the lateral left base that may reflect developing pneumonia. Pleural spaces: No pleural effusion. No pneumothorax. Heart/Mediastinum: The cardiac silhouette is approximately unchanged. No gross evidence of pneumomediastinum. Bones/joints: No gross fracture. XR/XR chest 1V portable [id number] IMPRESSION: Mild patchy opacity at the lateral left base that may reflect developing pneumonia. Consider CT to better characterize if clinically warranted.
[2022-03-07] MEDS: ipratropium-albuterol 3 mL Neb INHALATION (09:55)
--- NOTE | 2022-03-07 10:12 | CTR_ITS ---
PROCEDURE INFORMATION: Exam: CT Head Without Contrast Exam date and time: 03/07/2022 10:29 AM Age: 81 years old Clinical indication: Visual disturbance TECHNIQUE: Imaging protocol: Computed tomography of the head without contrast. Radiation optimization: All CT scans at this facility use at least one of these dose optimization techniques: automated exposure control; mA and/or kV adjustment per patient size (includes targeted exams where dose is matched to clinical indication); or iterative reconstruction. COMPARISON: CT head wo con* [id number] 10/09/2020 1:09 PM RADIATION DOSE METRICS: Total DLP (mGy-cm): 1038.88 FINDINGS: Brain: New lacunar infarct in the left basal ganglia that remains indeterminate in age. No acute intracranial hemorrhage. No mass, mass effect or midline shift. There is mild patchy subcortical and periventricular hypodensity, most commonly associated with small vessel ischemic disease of indeterminate age. The posterior fossa is grossly unremarkable; however, it is partially obscurred by beam hardening artifact. Cerebral ventricles: The ventricles are prominent, compatible with mild parenchymal volume loss. Paranasal sinuses: The visualized paranasal sinuses are clear. Mastoid air cells: No mastoid effusion. Orbital cavities: Probable prior bilateral ocular surgery. Bones/joints: No acute fracture is seen. Soft tissues: No scalp soft tissue swelling is seen. Vasculature: There is no evidence of acute large vessel infarct. CT/CT head wo con* [id number] IMPRESSION: 1. 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 2. No acute intracranial hemorrhage is seen. 3. Mild senescent changes as above.
[2022-03-07 10:38] LABS: Lactic Sepsis W/Reflex 1.4 mmol/L (0.5-2.2)
[2022-03-07 10:57] LABS: Troponin(5th) Baseline 14 ng/L (0-15)
[2022-03-07 11:11] LABS: Basophils % 0.3 %; Eosinophils # 0.1 10^3/uL (0.0-0.8); Eosinophils % 1.7 %; Hematocrit 48.7 % (42.0-52.0); Hemoglobin 14.9 g/dL (11.7-16.6); Lymphocytes # 1.2 10^3/uL (0.8-4.8); Lymphocytes % 16.1 %; Mean Corpuscular HGB Conc 30.6 g/dL (30.0-36.0); Mean Corpuscular Hemoglobin 28.8 pg (28.0-34.0); Mean Platelet Volume 12.1 fL (7.4-10.4); Monocytes % 13.8 %; Neutrophils # 4.93 10^3/uL (1.8-7.7); Neutrophils % 67.8 %; Nucleated Red Blood Cells % 0 %; Platelet Count 89 10^3/cmm (130-400); Red Blood Count 5.18 10^6/uL (4.1-5.3); Red Cell Distribution Width 13.4 % (12.1-15.1); White Blood Count 7.3 10^3/uL (4.0-10.0)
[2022-03-07] MEDS: doxycycline 100 MG in sodium chloride 0.9% (plus) 100 ML IV (11:37)
[2022-03-07] MEDS: cefTRIAXone 1,000 MG in sodium chloride 0.9% (plus) 50 ML 100 MG IV (11:37)
[2022-03-07 11:49] LABS: Alanine Aminotransferase 14 U/L (0-41); Albumin Level 4.2 g/dL (3.5-5.2); Alkaline Phosphatase 77 U/L (40-130); Anion Gap 12.5 (5-19); Aspartate Amino Transferase 15 U/L (0-40); Blood Urea Nitrogen 19 mg/dL (8-23); Calcium 9.6 mg/dL (8.5-10.5); Carbon Dioxide 35 mmol/L (22-29); Chloride 96 mmol/L (98-107); Globulin 2.5 g/dL (1.3-4.6); Glucose 128 mg/dL (65-115); NT Pro B Type Natriuretic Pept 498 pg/mL (0-450); Osmolality Calculated 292 mOsm/kg (285-295); Potassium 4.5 mmol/L (3.5-5.1); Sodium 139 mmol/L (136-145); Total Bilirubin 0.4 mg/dL (0.15-1.2); Total Protein 6.7 g/dL (6.6-8.7)
--- NOTE | 2022-03-07 11:58 | ECG_ITS ---
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 Measurements Intervals [place] Rate: 91 P: NE: QRS: 7 QRSD: 162 T: 201 QT: 411 QTc: 506 Interpretive Statements ATRIAL FIBRILLATION LEFT BUNDLE BRANCH BLOCK [120+ ms QRS DURATION, 80+ ms Q/S IN V1/V2, 85+ ms R IN I/aVL/V5/V6] Compared to ECG 03/07/2022 09:48:16 No significant changes Electronically Signed On 03-07-2022 17:50:03 CDT by Rahat Rojas M.D. [id number]
[2022-03-07 12:49] LABS: Troponin 5 2HR 12.88 ng/L (0-15)
[2022-03-07 13:01] LABS: Troponin 5 2HR Delta -1.12 ABS# (0-10)
== END 2022-03-07 13:59 | disposition home or self-care (01) ==
PROVIDERS: Emergency Provider Emergency Medicine; PCP Family Medicine
DX: J44.0 Chronic obstructive pulmonary disease with (acute) lower respiratory infection (principal); J18.9 Pneumonia, unspecified organism; J44.1 Chronic obstructive pulmonary disease with (acute) exacerbation; Z79.01 Long term (current) use of anticoagulants; Z87.891 Personal history of nicotine dependence; I10 Essential (primary) hypertension; E78.5 Hyperlipidemia, unspecified; E78.2 Mixed hyperlipidemia; Z95.0 Presence of cardiac pacemaker
CPT/HCPCS: 36415; 70450; 71045; 80053; 83605; 83880; 84484; 85025; 93005; 94640; 96365; 96367; 96375; 99285; J0696; J2930; J3490

== ENCOUNTER 2022-03-19 15:09 | Inpatient (IN) | payer MEDICARE, OTHER, SELFPAY ==
[2022-03-19] VITALS (9 sets, daily range): BP systolic 93–175; BP diastolic 47–89; PULSE 83–100; RESP 20–35; TEMP 36.1–37.2; O2SAT 92–100; BMI 39.0
--- NOTE | 2022-03-19 15:13 | XR_ITS ---
WS: [id number] Exam: XR chest 1V portable [id number] Date/Time of Exam: 03/19/2022 3:16 PM Reason For Exam: dyspnea Comparison 03/07/2022. Bibasal plaque atelectasis noted. The lungs are fully expanded. Mild cardiac enlargement unchanged. A permanent cardiac pacer superimposes the left chest. Mediastinal silhouette is unremarkable for tech nique. Bony structures are intact. XR/XR chest 1V portable [id number] IMPRESSION: 1. Bibasal plaque atelectasis. No acute process identified. 2. Mild cardiac enlargement unchanged.
--- NOTE | 2022-03-19 15:21 | W.ED.GENADLT ---
HPI - General Adult General: Chief complaint: Shortness of Breath/Dyspnea Stated complaint: sob Time Seen by Provider: 03/19/22 15:12 History of Present Illness: For lowPatient is an 81-year-old male with history of COPD, CHF, atrial fibrillation not on anticoagulation, recent pneumonia presenting to the emergency room for concerns of respiratory distress. Patient at baseline uses 2.5 L oxygen. However, since last few days, patient has noticed increased oxygen requirement. Earlier today, patient was noted to be satting at 78% on 4L oxygen when EMS arrived. Patient's oxygen requirement improved to 95% on 6 L. On arrival in the emergency room, patient reports shortness of breath ongoing cough. Patient denies any fever, chest pain, abdominal complaints with diarrhea/melena/hematochezia. Patient has no complaints. Also, patient was recent admitted to the hospital for mixed respiratory distress on 03/07/2022. Onset: 3-4 days ago Duration:ongoing Location:home Severity:moderate Associated symptoms: Reports dyspnea; Deny chest pain, nausea, rash, palpitations or vomiting Review of Systems Const: Denies: fever(s) or chills Eyes: Denies: change in vision ENMT: Denies: mouth pain Card: Denies: chest pain or palpitations Resp: Reports: dyspnea and non-productive cough GI: Denies: abdominal pain, nausea, vomiting or diarrhea : Denies: dysuria Musc: Denies: extremity pain Skin/Breast: Denies: rash or new lesions Neuro: Denies: weakness in extremities Psych: Reports: other (Normal mood) Joel/Lymph: Denies: easy bruising PFSH ED PFSH: Medical History A-fib Anxiety disorder Benign essential hypertension with target blood pressure below 140/90 Chest pain Chronic atrial fibrillation Chronic episodic atrial fibrillation COPD (chronic obstructive pulmonary disease) Dyslipidemia (high LDL; low HDL) Leg swelling Mixed hyperlipidemia Peripheral neuropathy PVD (peripheral vascular disease) Retinal tear of left eye SOB (shortness of breath) Surgical History History of permanent cardiac pacemaker placement Family History Brother CAD (coronary artery disease) Mother Cancer Father Cancer Sister Cancer Family/Other Cancer Denies family history of Diabetes Clotting disorder Dementia Chronic kidney disease (CKD) Suicide Anesthesia complication Bleeding disorder Lung disease Stroke Social History Smoking and tobacco status: former smoker Alcohol intake: never Physical Exam Const: COMMON NORMALS: alert HENMT: COMMON NORMALS: atraumatic HEAD & SCALP: atraumatic MOUTH: moist mucous membranes not abnormal Eye: COMMON NORMALS: EOMs intact bilaterally and conjunctivae normal CONJUNCTIVA: Yes conjunctivae normal Neck/C-Spine: COMMON NORMALS: full ROM and supple Resp: COMMON NORMALS: normal respiratory effort OTHER: + Coarse junky breath sounds bilaterally Cardio: COMMON NORMALS: regular rate RATE: regular rate GI: COMMON NORMALS: Soft to palpation and non-tender PALPATION: Yes Soft to palpation OTHER: No focal TTP. NO guarding rebound, guarding, rigidity. No CVA tenderness to percussion. Neg Morgan/Neg McBurney's point tenderness, no suprabupic tenderness to palpation. Extremity: COMMON NORMALS: full ROM OTHER: +No lower extremity swelling Neuro: SENSORIUM/ORIENTATION: Yes alert MOTOR EXAM: No Abnormal motor strength present and Other motor observations present (no focal motor deficits) Psych: COMMON NORMALS: speech normal SPEECH: Yes normal speech MOOD & AFFECT: Yes euthymic mood Course Vital Signs: Vital signs: Vital Signs Temperature 98.4 F 03/19/22 15:10 Pulse Rate 97 03/19/22 17:13 Respiratory Rate 30 H 03/19/22 17:13 Blood Pressure 175/54 03/19/22 15:10 Pulse Oximetry 97 03/19/22 17:13 Oxygen Delivery Mo thod 03/19/22 17:13 Oxygen Flow Rate 2 03/19/22 17:13 [facility] - General Adult Medical Decision Making Patient is an 81-year-old male with history of COPD, CHF, atrial fibrillation not on anticoagulation, recent pneumonia presenting to the emergency room for concerns of respiratory distress. On physical exam, patient is noted to be satting at 85 to 87% on room air. Patient required 4 L oxygen in the ER. Patient has coarse breath sounds with junky sounds bilaterally. Patient is no increased work of breathing. White count of 8.9 today. BMP appears to be mildly elevated at 869. X-ray chest did not show any focal pathologies. Patient received DuoNeb in the ER. Patient also received 60 mg Lasix. Suspect the patient's hypoxemia is likely due to a mixed respiratory disorder including CHF and COPD exacerbation. Disposition: admission Lab Data : 03/19/22 16:18 03/19/22 15:20 Radiology Impressions Chest X-Ray 03/19/22 15:13 IMPRESSION: 1. Bibasal plaque atelectasis. No acute process identified. 2. Mild cardiac enlargement unchanged. Laboratory Results WBC 8.9 10^3/uL (4.0-10.0) 03/19/22 16:18 Corrected WBC Cancelled 03/19/22 15:20 RBC 5.41 10^6/uL (4.1-5.3) H 03/19/22 16:18 Hgb 15.7 g/dL (11.7-16.6) 03/19/22 16:18 Hct 50.8 % (42.0-52.0) 03/19/22 16:18 MCV 93.9 fl (80-94) 03/19/22 16:18 MCH 29.0 pg (28.0-34.0) 03/19/22 16:18 MCHC 30.9 g/dL (30.0-36.0) 03/19/22 16:18 RDW 14.0 % (12.1-15.1) 03/19/22 16:18 Plt Count 194 10^3/cmm (130-400) 03/19/22 16:18 MPV 10.7 fL (7.4-10.4) H 03/19/22 16:18 Gran % Cancelled 03/19/22 15:20 Neut % (Auto) 67.4 % 03/19/22 16:18 Lymph % (Auto) 11.0 % 03/19/22 16:18 [place] % (Auto) 18.3 % 03/19/22 16:18 Eos % (Auto) 2.0 % 03/19/22 16:18 Baso % (Auto) 0.2 % 03/19/22 16:18 Neut # (Auto) 5.96 10^3/uL (1.8-7.7) 03/19/22 16:18 Lymph # (Auto) 1.0 10^3/uL (0.8-4.8) 03/19/22 16:18 [place] # (Auto) 1.6 10^3/uL (0.2-0.9) H 03/19/22 16:18 Eos # (Auto) 0.2 10^3/uL (0.0-0.8) 03/19/22 16:18 Baso # (Auto) 0.0 10^3/uL (0.0-0.1) 03/19/22 16:18 Absolute Gran (auto) Cancelled 03/19/22 15:20 Nucleated RBC % (auto) 0 % 03/19/22 16:18 Nucleated RBCs # 0.0 /100WBC 03/19/22 16:18 Specimen Type Arterial 03/19/22 15:31 Sample Site Brachial, left 03/19/22 15:31 ABG pH 7.38 (7.35-7.45) 03/19/22 15:31 ABG pCO2 57.3 mmHg (35-45) H 03/19/22 15:31 ABG pO2 88.8 mmHg (80.0-100.0) 03/19/22 15:31 ABG HCO3 33.5 mmol/L (22-26) H 03/19/22 15:31 ABG O2 Saturation 97.3 03/19/22 15:31 ABG Base Excess 6.3 mmol/L (-2.0-2.0) H 03/19/22 15:31 Cole Test Pos 03/19/22 15:31 A-a O2 Gradient 5.4 mmHg (5-10) 03/19/22 15:31 Hematocrit 45.9 % (42-52) 03/19/22 15:31 Hgb O2 Saturation 95.4 % (95-100) 03/19/22 15:31 Carboxyhemoglobin 1.2 %THgb (0.4-20.1) 03/19/22 15:31 Methemoglobin 0.8 % (0.4-1.5) 03/19/22 15:31 Total Hemoglobin 15.0 g/dL (14-18) 03/19/22 15:31 Sodium 136.0 mmol/L (131-143) 03/19/22 15:31 Potassium 4.3 mmol/L (3.5-5.0) 03/19/22 15:31 Glucose 160.0 mg/dL (70-115) H 03/19/22 15:31 Ionized Calcium 1.2 mmol/L (1.1-1.4) 03/19/22 15:31 O2 Delivery Device Nc 03/19/22 15:31 O2 Liters/Min 2.0 % 03/19/22 15:31 FiO2 28.0 % 03/19/22 15:31 Radio Assembler ID Constantino 03/19/22 15:31 Sodium 136 mmol/L (136-145) 03/19/22 15:20 Potassium 4.4 mmol/L (3.5-5.1) 03/19/22 15:20 Chloride 94 mmol/L (98-107) L 03/19/22 15:20 Carbon Dioxide 34 mmol/L (22-29) H 03/19/22 15:20 Anion Gap 12.4 (5-19) 03/19/22 15:20 BUN 20 mg/dL (8-23) 03/19/22 15:20 Creatinine 1.0 mg/dL (0.7-1.2) 03/19/22 15:20 GFR Calculation Not Reportable 03/19/22 15:20 Glucose 139 mg/dL (65-115) H 03/19/22 15:20 Calculated Osmolality 287 mOsm/kg (285-295) 03/19/22 15:20 Calcium 9.2 mg/dL (8.5-10.5) 03/19/22 15:20 Troponin T Baseline 16 ng/L (0-15) H 03/19/22 15:20 C-Reactive Protein 79.4 mg/L (0.0-4.9) H 03/19/22 15:20 NT-Pro-B Natriuret Pep 869 pg/mL (0-450) H 03/19/22 15:20 Procalcitonin 0.08 ng/mL (0-0.5) 03/19/22 15:20 Influenza Type A Ag Negative (Negative) 03/19/22 15:20 Influenza Type B Ag Negative (Negative) 03/19/22 15:20 Imaging Data Other Imaging: Radiologist's impression: [address] [place] [address] XRay Report Signed Patient: Marcial Colindres Unit #: [id number] : 1940 Age/Sex: 81 / M ADM Date: 03/19/22 Loc: ER Room/Bed: Attending Dr: Ordering Provider/Ordering MD: Anup Orellana MD Date of Service: 03/19/22 Procedure(s): XR chest 1V portable [id number] Accession Number(s): [id number] Report Number: [id number] WS: [id number] Exam: XR chest 1V portable [id number] Date/Time of Exam: 03/19/2022 3:16 PM Reason For Exam: dyspnea Comparison 03/07/2022. Bibasal plaque atelectasis noted. The lungs are fully expanded. Mild cardiac enlargement unchanged. A permanent cardiac pacer superimposes the left chest. Mediastinal silhouette is unremarkable for technique. Bony structures are intact. XR/XR chest 1V portable [id number] IMPRESSION: 1. Bibasal plaque atelectasis. No acute process identified. 2. Mild cardiac enlargement unchanged. ? Dictated By: Kevin Johnson DO Signed By: Kevin Johnson DO Signed Date/Time: 03/19/22 152 DD/ 1524 Discharge Plan Discharge Condition: Stable Prescriptions: No Action albuterol sulfate 2.5 mg /3 mL (0.083 %) solution for nebulization 2.5 mg INHALATION Q4H PRN (Reason: Shortness Of Breath) finasteride 5 mg tablet 5 mg PO DAILY@1700 omega 1-tci-uur-fish oil [Fish Oil] 1,000 mg (120 mg-180 mg) capsule 2 cap PO BID fluoxetine 20 mg capsule 20 mg PO DAILY@07 lorazepam 1 mg tablet 0.5 mg PO TID PRN (Reason: Anxiety) multivitamin Tablet 1 tab PO DAILY@07 nitroglycerin [Nitrostat] 0.4 mg tablet, sublingual 0.4 mg SUBLINGUAL Q5M PRN (Reason: Chest Pain) omeprazole 40 mg capsule,delayed release(DR/EC) 40 mg PO DAILY@07 potassium chloride 10 mEq capsule, extended release 10 meq PO DAILY sotalol 80 mg tablet 80 mg PO BID@07,17 tamsulosin 0.4 mg capsule 0.4 mg PO DAILY@07 warfarin 2.5 mg tablet 2.5 mg PO DAILY@1700 furosemide 20 mg tablet 20 mg PO DAILY@07 fluticasone propion-salmeterol [Advair Diskus] 500-50 mcg/dose blister with device 1 inh INHALATION BID albuterol 90 mcg/actuation aerosol 90 mcg INHALATION UNK PRN (Reason: Shortness Of Breath) spironolactone 25 mg tablet 25 mg PO BID@07,17 ferrous sulfate 325 mg (65 mg iron) tablet 325 mg PO DAILY@07 (DME) GILDA See Rx Instructions .Route .MEDSUPPLY Qty: 1 0RF Rx Instructions: As directed (DME) FAST FORM COCK UP SPLINT See Rx Instructions .Route .MEDSUPPLY Qty: 1 0RF Rx Instructions: As directed betamethasone dipropionate 0.05 % ointment 1 applic topical BID Qty: 45 2RF Rx Instructions: To elbows no more than 3wks/mo (DME) COCK UP SPLINT See Rx Instructions .Route .MEDSUPPLY Qty: 1 0RF Rx Instructions: As directed (DME) HINGED KNEE BRACE See Rx Instructions .Route .MEDSUPPLY Qty: 1 0RF Rx Instructions: As directed levothyroxine 75 mcg tablet 75 mcg PO DAILY metoprolol tartrate 50 mg tablet See Rx Instructions .ROUTE .COMPLEX Qty: 270 3RF Dose Instruction: TAKE ONE AND ONE HALF (1/2) TABLETS BY MOUTH TWICE DAILY Rx Instructions: TAKE ONE AND ONE HALF (1/2) TABLETS BY MOUTH TWICE DAILY hydrocodone-acetaminophen 5-325 mg Tablet 1 tab PO BID PRN (Reason: Pain) Ventolin HFA 90 mcg/actuation HFA aerosol inhaler 1 inh inhalation Q6H PRN (Reason: shortness of breath or wheezing) Qty: 6.7 0RF Lasix 20 mg tablet 20 mg PO DAILY Qty: 4 0RF albuterol sulfate 90 mcg/actuation HFA aerosol inhaler 2 inh inhalation Q4H PRN (Reason: shortness of breath or wheezing) Qty: 8.5 2RF Referrals: Jennifer Ackerman MD [Primary Care Provider] - Coding Level of Care Code ED Wireless Manager for Chg Fwd Exam Comprehensive
--- NOTE | 2022-03-19 15:25 | ECG_ITS ---
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 Measurements Intervals [place] Rate: 90 P: GA: QRS: -7 QRSD: 162 T: 144 QT: 420 QTc: 514 Interpretive Statements ATRIAL FIBRILLATION LEFT BUNDLE BRANCH BLOCK [120+ ms QRS DURATION, 80+ ms Q/S IN V1/V2, 85+ ms R IN I/aVL/V5/V6] Compared to ECG 03/07/2022 11:58:51 No significant changes Electronically Signed On 03-19-2022 16:38:23 CDT by Althea Spring M.D. [email or web address] [facility].[email or web address]/store/OM/[id number]
[2022-03-19 15:45] LABS: ABG PCO2 57.3 mmHg (35-45); ABG PH Result 7.38 (7.35-7.45); Arterial Blood Gas Hematocrit 45.9 % (42-52); Base Excess ABG 6.3 mmol/L (-2.0-2.0); Blood Gas Allen Test Pos; Blood Gas Sample Type Arterial; Carboxyhemoglobin 1.2 %THgb (0.4-20.1); HCO3 ABG 33.5 mmol/L (22-26); HGB O2 Sat 95.4 % (95-100); Ionized Calcium Level - ABG 1.2 mmol/L (1.1-1.4); Methemoglobin 0.8 % (0.4-1.5); Oxygen Saturation ABG 97.3; PO2 ABG 88.8 mmHg (80.0-100.0); Potassium Level - ABG 4.3 mmol/L (3.5-5.0)
[2022-03-19 15:46] LABS: Alveolar-Arterial Oxygen Gradi 5.4 mmHg (5-10); Blood Gas Operator Identificat MONRO; Blood Gas Sample Site Brachial, left; Oxygen Device NC
[2022-03-19 16:05] LABS: Troponin(5th) Baseline 16 ng/L (0-15)
[2022-03-19 16:14] LABS: NT Pro B Type Natriuretic Pept 869 pg/mL (0-450); Procalcitonin 0.08 ng/mL (0-0.5)
[2022-03-19 16:22] LABS: Basophils % 0.2 %; Eosinophils # 0.2 10^3/uL (0.0-0.8); Hematocrit 50.8 % (42.0-52.0); Hemoglobin 15.7 g/dL (11.7-16.6); Mean Corpuscular HGB Conc 30.9 g/dL (30.0-36.0); Mean Corpuscular Volume 93.9 fl (80-94); Mean Platelet Volume 10.7 fL (7.4-10.4); Monocytes # 1.6 10^3/uL (0.2-0.9); Monocytes % 18.3 %; Neutrophils # 5.96 10^3/uL (1.8-7.7); Neutrophils % 67.4 %; Nucleated Red Blood Cells % 0 %; Platelet Count 194 10^3/cmm (130-400); Red Blood Count 5.41 10^6/uL (4.1-5.3); White Blood Count 8.9 10^3/uL (4.0-10.0)
[2022-03-19 16:25] LABS: Anion Gap 12.4 (5-19); Blood Urea Nitrogen 20 mg/dL (8-23); C Reactive Protein 79.4 mg/L (0.0-4.9); Calcium 9.2 mg/dL (8.5-10.5); Carbon Dioxide 34 mmol/L (22-29); Chloride 94 mmol/L (98-107); Glucose 139 mg/dL (65-115); Osmolality Calculated 287 mOsm/kg (285-295); Potassium 4.4 mmol/L (3.5-5.1); Sodium 136 mmol/L (136-145)
[2022-03-19 16:45] LABS: Influenza A by IFA Negative (Negative); Influenza B by IFA Negative (Negative)
[2022-03-19] MEDS: ipratropium-albuterol 3 mL Neb INHALATION ×3 (17:11→17:21)
[2022-03-19] MEDS: FUROsemide 10 mg/mL SDV 10mL 60 MG IVP (17:12)
--- NOTE | 2022-03-19 17:43 | PM.HP ---
Providers/Chief Complaint Primary Care Provider: Jennifer Ackerman MD Chief Complaint: sob History of Present Illness Marcial Colindres is a 81 year old male patient of Dr. Brown follows up with him for A. fib, pacemaker, hypothyroid, sent to the hospital with chief complaint of worsening shortness of breath. Patient is stating that he has been experiencing shortness of breath for quite some time he was evaluated in the ER on 03/07 and was discharged home however he is presenting back with worsening of his symptoms. At baseline he uses 2 L of oxygen at this point in the ER he is on 2.5 L, he just got up to void urine and became extremely weak and lethargic. Hemodynamically stable, A. fib RVR, afebrile, no leukocytosis, patient is very hard of hearing BNP around 800 which has worsened from his last time he is positive for COVID 19 with positive PCR result I will start him on remdesivir and Decadron, continue diuresis continue Coumadin check INR Patient is full code He has been experiencing COVID and related symptoms for about 2 to 3 weeks Review of Systems Const: Reports: chills, body aches, change in appetite, fatigue and malaise Eyes: Denies: change in vision ENMT: Denies: throat pain Card: Reports: swelling of feet/ankles, dyspnea on exertion and orthopnea; Denies: chest pain Resp: Reports: dyspnea and productive cough GI: Reports: nausea : Denies: flank pain Musc: Denies: neck pain Skin/Breast: Reports: rash and lesions Neuro: Denies: headache(s) Psych: Denies: anxiety Endo: Denies: polyuria Joel/Lymph: Denies: easy bruising All/Imm: Denies: urticaria Medications/Allergies Home Medications Medication Instructions Recorded Confirmed Last Taken Type albuterol sulfate 2.5 mg inhalation Q4H PRN 08/10/19 03/19/22 03/19/22 History Shortness Of Breath finasteride 5 mg tablet 5 mg PO DAILY@1700 08/10/19 03/19/22 03/18/22 History fluoxetine 20 mg capsule 20 mg PO DAILY@07 08/10/19 03/19/22 03/19/22 History lorazepam 1 mg tablet 0.5 mg PO TID PRN Anxiety 08/10/19 03/19/22 03/19/22 History multivitamin 1 tab PO DAILY@07 08/10/19 03/19/22 03/19/22 History nitroglycerin 0.4 mg sublingual 0.4 mg sublingual Q5M PRN Chest 08/10/19 03/19/22 Unknown History tablet (Nitrostat) Pain omega 9-tib-xua-fish oil 1,000 mg 1 cap PO BID 08/10/19 03/19/22 03/19/22 History (120 mg-180 mg) capsule (Fish Oil) omeprazole 40 mg capsule,delayed 40 mg PO DAILY@08/10/19 03/19/22 03/19/22 History release potassium chloride 10 mEq 10 meq PO DAILY 08/10/19 03/19/22 03/19/22 History capsule,extended release sotalol 80 mg tablet 80 mg PO BID@08/10/19 03/19/22 03/19/22 History tamsulosin 0.4 mg capsule 0.4 mg PO DAILY@08/10/19 03/19/22 03/19/22 History warfarin 2.5 mg tablet 2.5 mg PO DAILY@1700 08/10/19 03/19/22 03/19/22 History fluticasone 500 mcg-salmeterol 50 1 inh inhalation BID 01/04/20 03/19/22 03/19/22 History mcg/dose blistr powdr for inhalation (Advair Diskus) furosemide 20 mg tablet 20 mg PO BID 01/04/20 03/19/22 03/19/22 History spironolactone 25 mg tablet 25 mg PO BID@01/04/20 03/19/22 03/19/22 History ferrous sulfate 325 mg (65 mg 325 mg PO Q7D 07/30/20 03/19/22 03/19/22 History iron) tablet hydrocodone 5 mg-acetaminophen 325 1 tab PO BID PRN Pain 10/09/20 03/19/22 Unknown History mg tablet GILDA #1 ea 10/17/20 03/19/22 Unknown Rx FAST FORM COCK UP SPLINT #1 ea 10/17/20 03/19/22 Unknown Rx COCK UP SPLINT #1 ea 12/03/20 03/19/22 Unknown Rx HINGED KNEE BRACE #1 ea 12/03/20 03/19/22 Unknown Rx metoprolol tartrate 50 mg tablet See Rx Instructions .Route 02/21/21 03/19/22 03/19/22 Rx .COMPLEX #270 ea betamethasone dipropionate 0.05 % 1 applic topical BID #45 grams 03/28/21 03/19/22 Unknown Rx topical ointment levothyroxine 75 mcg tablet 37.5 mcg PO DAILY 08/05/21 03/19/22 03/19/22 History albuterol sulfate 90 mcg/actuation 2 inh inhalation Q4H PRN shortness 03/07/22 03/19/22 03/19/22 Rx aerosol inhaler of breath or wheezing #8.5 grams Allergies Allergy/AdvReac Type Severity Reaction Status Date / Time Boqzaba-NJC-SvV Reductase Allergy Mild ALGY-Rash Verified 02/06/22 08:27 Inhibitor [Ggtqnlp-Uwv-Mok Reductase Inhibitor] codeine Allergy Unknown Unknown Verified 02/06/22 08:27 PFSH Acute PFSH: Medical History A-fib Anxiety disorder Benign essential hypertension with target blood pressure below 140/90 Chest pain Chronic atrial fibrillation Chronic episodic atrial fibrillation COPD (chronic obstructive pulmonary disease) Dyslipidemia (high LDL; low HDL) Leg swelling Mixed hyperlipidemia Peripheral neuropathy PVD (peripheral vascular disease) Retinal tear of left eye SOB (shortness of breath) Surgical History History of permanent cardiac pacemaker placement Family History Brother CAD (coronary artery disease) Mother Cancer Father Cancer Sister Cancer Family/Other Cancer Denies family history of Diabetes Clotting disorder Dementia Chronic kidney disease (CKD) Suicide Anesthesia complication Bleeding disorder Lung disease Stroke Social History Smoking and tobacco status: former smoker Alcohol intake: never Vitals/I&O/Wt Last Vital Signs Temp 97.4 F L 03/19/22 17:17 Pulse 100 03/19/22 17:29 Resp 35 H 03/19/22 17:17 BP 136/89 03/19/22 17:17 Pulse Ox 97 03/19/22 17:17 O2 Del Method 03/19/22 17:17 O2 Flow Rate 2.5 03/19/22 17:17 Weight last 48 hrs Weight 127.006 kg Physical Exam Narrative: Pleasant cooperative male Currently on 2.5 L Bilateral breath sound with positive crackles Crackles are diffuse Abdomen soft Signs of congestive heart failure Fluid overload 2+ pitting edema of legs Abdomen distended, nontender Awake and alert EOMI, PERRLA DuoNeb Drooling of saliva noted However able to move all of his extremities Extremely weak and lethargic Data : 03/19/22 16:18 03/19/22 15:20 A&P Assessment and plan (1) Fatigue: Status: Acute Qualifiers: Fatigue type: chronic, unspecified Qualified Code(s): R53.82 - Chronic fatigue, unspecified (2) Chronic atrial fibrillation: Status: Acute (3) Leg swelling: Status: Acute (4) History of permanent cardiac pacemaker placement: Status: Acute (5) Chronic episodic atrial fibrillation: Status: Acute (6) Peripheral arterial disease: Status: Acute (7) Peripheral neuropathy: Status: Acute Qualifiers: Peripheral neuropathy type: idiopathic neuropathy, unspecified Qualified Code(s): G60.9 - Hereditary and idiopathic neuropathy, unspecified (8) COVID-19: Status: Acute Plan COVID-19 pneumonia Symptoms started about 2 to 3 weeks ago Currently on 2.5 L at home uses 2 L Signs of congestive heart failure Diastolic congestive heart failure exacerbation Continue Lasix Decadron and remdesivir Patient takes Coumadin for his A. 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
[2022-03-19 17:48] LABS: INR 1.67 (0.8-1.2)
[2022-03-19 17:53] LABS: Adenovirus Not Detected (NOT DETECT); Chlamydia Pneumoniae Not Detected (NOT DETECT); Coronavirus 229E,HKU1,NL63,OC4 Not Detected (NOT DETECT); Human Metapneumovirus Not Detected (NOT DETECT); Human Rhinovirus/Enterovirus Not Detected (NOT DETECT); Influenza A Not Detected (NOT DETECT); Influenza A H1 Not Detected (NOT DETECT); Influenza A H1-2009 Not Detected (NOT DETECT); Influenza A H3 Not Detected (NOT DETECT); Influenza B Not Detected (NOT DETECT); Mycoplasma Pneumoniae Not Detected (NOT DETECT); Parainfluenza Virus Type 1 Not Detected (NOT DETECT); Parainfluenza Virus Type 2 Not Detected (NOT DETECT); Parainfluenza Virus Type 3 Not Detected (NOT DETECT); Parainfluenza Virus Type 4 Not Detected (NOT DETECT); Respiratory Syncytial Virus A Not Detected (NOT DETECT); Respiratory Syncytial Virus B Not Detected (NOT DETECT); SARS-COV-2 Detected (NOT DETECT)
[2022-03-19 17:54] LABS: Lactic Sepsis W/Reflex 1.5 mmol/L (0.5-2.2)
[2022-03-19 18:04] LABS: Thyroid Stimulating Hormone 1.96 uIU/mL (0.27-4.20)
[2022-03-19 18:12] LABS: Add Urine Microscopic? NO; Charge for UA Resulting for Rev
[2022-03-19 18:13] LABS: Urine Appearance Clear (CLEAR); Urine Color Yellow (Yellow)
[2022-03-19 18:14] LABS: Bilirubin Urine Neg (Negative); Blood Urine Neg (Negative); Glucose Urine UA Norm (Normal); Ketones Urine Negative (Negative); Leukocyte Esterase Urine Negative (Negative); Nitrate Urine Negative (Negative); Protein Urine Neg (Negative); Urobilinogen Urine Norm (Negative); pH Urine 6 (5-7)
[2022-03-19 18:18] LABS: Troponin 5 2HR 16.82 ng/L (0-15)
[2022-03-19 18:19] LABS: Troponin 5 2HR Delta 0.82 ABS# (0-10)
[2022-03-19] MEDS: heparin 5,000 unit/mL INJ 1 mL 5000 UNIT SUBCUT (19:01)
--- NOTE | 2022-03-19 19:02 | PC.PHAR ---
Addendum entered by Megan Priest 03/19/22 20:25: Informed Dr. Jenkins of possible medication double-up. 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
[2022-03-19] MEDS: famotidine 20 mg Tablet PO (19:12)
--- NOTE | 2022-03-19 19:50 | PC.NURSE ---
Report called to [facility] on med surg, patient moving to 266 room currently dirty
--- NOTE | 2022-03-19 21:13 | ECG_ITS ---
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 Measurements Intervals [place] Rate: 93 P: NC: QRS: 16 QRSD: 162 T: 154 QT: 405 QTc: 504 Interpretive Statements ATRIAL FIBRILLATION LEFT BUNDLE BRANCH BLOCK [120+ ms QRS DURATION, 80+ ms Q/S IN V1/V2, 85+ ms R IN I/aVL/V5/V6] Compared to ECG 03/19/2022 22:25:26 No significant changes Electronically Signed On 03-21-2022 15:43:39 CDT by Gen Brown M.D. [id number]
[2022-03-19 21:35] LABS: Glucose Point of Care 178 mg/dL (70-110)
[2022-03-19 21:45] LABS: Troponin 5 6HR 15.14 ng/L (0-15)
[2022-03-19 21:55] LABS: Troponin 5 6HR Delta -0.86 ng/L (0-12)
[2022-03-19] MEDS: remdesivir 200 MG in sodium chloride 0.9% (100 ml) 60 ML 100 MG IV (21:59)
--- NOTE | 2022-03-19 22:25 | ECG_ITS ---
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 Measurements Intervals [place] Rate: 102 P: MA: QRS: 20 QRSD: 157 T: 169 QT: 385 QTc: 503 Interpretive Statements ATRIAL FIBRILLATION WITH RAPID VENTRICULAR RESPONSE LEFT BUNDLE BRANCH BLOCK [120+ ms QRS DURATION, 80+ ms Q/S IN V1/V2, 85+ ms R IN I/aVL/V5/V6] Compared to ECG 03/19/2022 15:25:11 No significant changes Electronically Signed On 03-21-2022 15:41:23 CDT by Gen Brown M.D. [id number]
[2022-03-20] VITALS (15 sets, daily range): BP systolic 106–124; BP diastolic 69–83; PULSE 64–101; RESP 15–20; TEMP 36.4–36.8; O2SAT 92–98
[2022-03-20 00:20] LABS: Glucose Point of Care 159 mg/dL (70-110)
[2022-03-20] MEDS: ipratropium-albuterol 3 mL Neb INHALATION ×4 (02:00→21:17)
[2022-03-20] MEDS: sotalol 80 mg Tablet PO ×2 (05:26→17:26)
[2022-03-20] MEDS: spironolactone 25 mg Tablet PO ×2 (05:26→17:26)
[2022-03-20] MEDS: tamsulosin 0.4 mg Capsule PO (05:26)
[2022-03-20] MEDS: pantoprazole DR 40 mg Tablet PO (05:26)
[2022-03-20] MEDS: fluoxetine 20 mg Capsule PO (05:26)
[2022-03-20] MEDS: multivitamin therapeutic Tablet 1 TAB PO (05:26)
[2022-03-20 05:36] LABS: Basophils % 0.2 %; Hematocrit 46.4 % (42.0-52.0); Hemoglobin 14.9 g/dL (11.7-16.6); Lymphocytes # 0.6 10^3/uL (0.8-4.8); Lymphocytes % 10.2 %; Mean Corpuscular HGB Conc 32.1 g/dL (30.0-36.0); Mean Corpuscular Hemoglobin 28.9 pg (28.0-34.0); Mean Corpuscular Volume 89.9 fl (80-94); Mean Platelet Volume 11.5 fL (7.4-10.4); Monocytes # 0.2 10^3/uL (0.2-0.9); Neutrophils # 5.06 10^3/uL (1.8-7.7); Neutrophils % 84.8 %; Nucleated Red Blood Cells % 0 %; Positive C 1; Red Blood Count 5.16 10^6/uL (4.1-5.3); Red Cell Distribution Width 13.8 % (12.1-15.1)
[2022-03-20 06:02] LABS: Platelet Count 153 10^3/cmm (130-400)
[2022-03-20 06:03] LABS: Alanine Aminotransferase 15 U/L (0-41); Albumin Level 3.7 g/dL (3.5-5.2); Alkaline Phosphatase 66 U/L (40-130); Anion Gap 15.3 (5-19); Aspartate Amino Transferase 15 U/L (0-40); Blood Urea Nitrogen 24 mg/dL (8-23); C Reactive Protein 97.2 mg/L (0.0-4.9); Calcium 9.1 mg/dL (8.5-10.5); Carbon Dioxide 31 mmol/L (22-29); Chloride 94 mmol/L (98-107); Globulin 2.4 g/dL (1.3-4.6); Glucose 162 mg/dL (65-115); Magnesium 2.2 mg/dL (1.7-2.3); Osmolality Calculated 290 mOsm/kg (285-295); Phosphorus 3.4 mg/dL (2.5-4.5); Potassium 4.3 mmol/L (3.5-5.1); Sodium 136 mmol/L (136-145); Total Bilirubin 0.2 mg/dL (0.15-1.2); Total Protein 6.1 g/dL (6.6-8.7)
[2022-03-20 06:09] LABS: Procalcitonin 0.08 ng/mL (0-0.5)
[2022-03-20 06:35] LABS: Glucose Point of Care 143 mg/dL (70-110)
--- NOTE | 2022-03-20 07:48 | PM.PN ---
Subjective Subjective: Seen this morning. Patient states he feels better compared to before. is present at bedside. He is on 2 L nasal cannula at this time. He has been coughing. Not really bringing up any phlegm at this time. Vitals/I&O/Wt Last Vital Signs Temp 97.7 F 03/20/22 05:37 Pulse 92 03/20/22 05:37 Resp 19 H 03/20/22 05:37 BP 124/75 03/20/22 05:37 Pulse Ox 93 03/20/22 05:37 O2 Del Method 03/20/22 05:37 O2 Flow Rate 2 03/19/22 22:37 FiO2 35 03/20/22 05:13 03/19/22 03/20/22 03/20/22 22:59 06:59 14:59 Intake Total 120 / 120 100 / 220 Output Total 500 / 500 350 / 850 Balance -380 / -380 -250 / -630 Weight last 48 hrs Weight 127.006 kg Physical Exam Narrative: General: Alert oriented x3, patient seen laying in bed appearing comfortable at this time and 2 L nasal cannula. HEENT: Normocephalic, atraumatic, EOMI, breathing stable on 2 L. Does cough from time to time during examination, large neck circumference Cardio: Regular rate rhythm, normal S1-S2, large body habitus, heart sounds a bit muffled Respiratory: Diffuse rhonchi bilaterally, decreased sounds at bases GI: Abdomen soft, nontender, nondistended, bowel sounds + Behavior: Appropriate and cooperative Extremities: Trace bilateral pitting edema Data : 03/20/22 05:27 03/20/22 05:27 Micro: Microbiology 03/19/22 18:13 Blood Culture - Preliminary Blood SPECIMEN COLLECTED 03/19/22 18:13 Blood Culture - Preliminary Blood SPECIMEN COLLECTED A&P Assessment and plan (1) COVID-19: Status: Acute (2) Chronic atrial fibrillation: Status: Acute (3) Dyslipidemia (high LDL; low HDL): Status: Acute (4) History of permanent cardiac pacemaker placement: Status: Acute (5) Chronic episodic atrial fibrillation: Status: Acute (6) Peripheral arterial disease: Status: Acute (7) PVD (peripheral vascular disease): Status: Acute Plan #COVID-19 pneumonia #Chronic atrial fibrillation #Permanent pacemaker #Peripheral arterial disease #Peripheral neuropathy #Chronic diastolic heart failure, ? Continue Decadron remdesivir. Decadron for 10 days total, remdesivir x5 days or until discharge whichever is sooner. ? Continue on warfarin for atrial fibrillation ? Continue finasteride, fluoxetine, levothyroxine, Lopressor, omeprazole, sotalol, spironolactone ? Continue patient on isolation ? Procalcitonin negative. DIC profile reviewed ? Continue patient on Lasix 40 IV daily. ? We will continue on Augmentin x7 days total. Patient already on antibiotics from previous hospital visit. DVT prophylaxis: Warfarin Full code updated at bedside Attestations Medical Necessity Statement*: We will keep in the hospital today for IV diuresis and continue treatment with Decadron and remdesivir. Plan for discharge tomorrow if patient continues to improve. Coding Level of Care Code Acute Director Of Teacher Education for Chg Fwd Diagnoses COVID-19 U07.1 Chronic atrial fibrillation I48.20 Dyslipidemia (high LDL; low HDL) E78.5 History of permanent cardiac pacemaker placement Z95.0 Chronic episodic atrial fibrillation I48.20 Peripheral arterial disease I73.9 PVD (peripheral vascular disease) I73.9
[2022-03-20 07:58] LABS: D Dimer 0.37 ug/mIFEU (0-0.59); Partial Thromboplastin Time 32.7 SECONDS (23.9-36.7)
[2022-03-20] MEDS: insulin lispro 100 unit/1 mL SUBCUT ×3 (08:29→17:25)
[2022-03-20] MEDS: metoprolol tartrate 50 mg Tablet 75 MG PO ×2 (08:29→17:25)
[2022-03-20] MEDS: levothyroxine 75 mcg Tablet 37.5 MCG PO (08:30)
[2022-03-20] MEDS: famotidine 20 mg Tablet PO ×2 (08:30→17:26)
[2022-03-20] MEDS: FUROsemide 40 mg Tablet PO (08:30)
[2022-03-20] MEDS: potassium chloride ER 10 mEq Tablet PO (08:30)
[2022-03-20] MEDS: dexamethasone 4 mg Tablet 6 MG PO (08:30)
[2022-03-20 10:56] LABS: Glucose Point of Care 167 mg/dL (70-110)
--- NOTE | 2022-03-20 11:03 | PC.CHAP ---
Pastoral Care Encounter/Spiritual Assessment Type of Contact [] Declined flow machine operator visit [] Patient/Family/Request visit [] Outpatient visit [] Follow-up visit [] Physician referral [] Code/Alert [] Routine visit [] Staff referral [] Actively dying [] Patient sleeping [] Family support [] [] Out of room [] Palliative care [] [] Receiving care in room [] Pre-surgical visit [] Trauma [] Long length of stay [] ICU visit [x] Other: Isolation Relational/Emotional Strength [] Patient feels connected with others/family/visitors/staff [] Distress [] Loneliness/isolation [] Abandonment Spirituality of Patient [] Person of Carolyn [] Attends Adventist of their Carolyn [] Believes in Prayer [] Reads Bible or Yarsani materials [] There are Spiritual issues to be addressed Historical Records Administrator Interventions [] Prayer [] Active listening [] Non-anxious presence [] Spiritual/emotional support [] Crisis/trauma care [] Spiritual counseling [] Bereavement support [] Provided bereavement packet [] Provided Bible/devotional materials [] Provided toy/stuffed animal, coloring book to patient or family member [] Provided Communion [] Anointing/[place] [] Salvation [] Completed spiritual assessment [] Other: Impact on Illness or Injury [] Angry [] Fearful [] Anxious [] Often cries [] Exhaustion [] Unable to work [] Unable to attend gnosticist [] Unable to walk/stand [] Unable to read [] Unable to drive [] Unable to eat/drink [] Unable to sleep [] Unable to be with family [] Patient intubated [] Other: Summary Isolation Time spent with patient
[2022-03-20] MEDS: FUROsemide 10 mg/mL SDV 4mL 40 MG IVP (14:04)
[2022-03-20 16:40] LABS: Glucose Point of Care 155 mg/dL (70-110)
[2022-03-20 16:45] LABS: Fibrinogen 602 mg/dL (174-498)
[2022-03-20] MEDS: remdesivir 100 MG in sodium chloride 0.9% (100 ml) 80 ML IV (17:25)
[2022-03-20] MEDS: finasteride 5 mg Tablet PO (17:26)
[2022-03-20] MEDS: warfarin 2.5 mg Tablet PO (17:26)
[2022-03-20] MEDS: acetaminophen 325 mg Tablet 650 MG PO (17:39)
[2022-03-20 21:42] LABS: Glucose Point of Care 157 mg/dL (70-110)
[2022-03-21] VITALS (13 sets, daily range): BP systolic 107–134; BP diastolic 71–91; PULSE 53–105; RESP 14–22; TEMP 36.4–36.8; O2SAT 82–98
[2022-03-21] MEDS: ipratropium-albuterol 3 mL Neb INHALATION ×4 (03:03→20:36)
[2022-03-21] MEDS: tamsulosin 0.4 mg Capsule PO (05:25)
[2022-03-21] MEDS: fluoxetine 20 mg Capsule PO (05:25)
[2022-03-21] MEDS: multivitamin therapeutic Tablet 1 TAB PO (05:25)
[2022-03-21] MEDS: pantoprazole DR 40 mg Tablet PO (05:25)
[2022-03-21] MEDS: sotalol 80 mg Tablet PO ×2 (05:27→18:22)
[2022-03-21] MEDS: spironolactone 25 mg Tablet PO ×2 (05:27→18:22)
[2022-03-21 06:13] LABS: INR 2.06 (0.8-1.2)
[2022-03-21 06:23] LABS: Anion Gap 15.4 (5-19); Blood Urea Nitrogen 37 mg/dL (8-23); Calcium 9.2 mg/dL (8.5-10.5); Carbon Dioxide 33 mmol/L (22-29); Chloride 95 mmol/L (98-107); Glucose 135 mg/dL (65-115); Magnesium 2.1 mg/dL (1.7-2.3); Osmolality Calculated 299 mOsm/kg (285-295); Potassium 4.4 mmol/L (3.5-5.1); Sodium 139 mmol/L (136-145)
[2022-03-21] MEDS: metoprolol tartrate 50 mg Tablet 75 MG PO ×2 (09:45→18:21)
[2022-03-21] MEDS: levothyroxine 75 mcg Tablet 37.5 MCG PO (09:46)
[2022-03-21] MEDS: dexamethasone 4 mg Tablet 6 MG PO (09:46)
[2022-03-21] MEDS: potassium chloride ER 10 mEq Tablet PO (09:46)
[2022-03-21] MEDS: famotidine 20 mg Tablet PO ×2 (09:46→18:22)
[2022-03-21 11:36] LABS: Glucose Point of Care 124 mg/dL (70-110)
--- NOTE | 2022-03-21 14:08 | P.PN_ITS ---
Subjective Subjective: Seen this morning. No acute events overnight. He is requiring 2 L at rest and 4 L on ambulation. Do not have urine output recorded. But he has gone a few times overnight. Vitals/I&O/Wt Last Vital Signs Temp 98.2 F 03/21/22 12:00 Pulse 84 03/21/22 12:00 Resp 20 H 03/21/22 12:00 BP 110/78 03/21/22 12:00 Pulse Ox 82 L 03/21/22 12:03 O2 Del Method 03/21/22 12:00 O2 Flow Rate 4 03/21/22 12:03 FiO2 35 03/20/22 05:13 03/20/22 03/21/22 03/21/22 22:59 06:59 14:59 Intake Total 220 / 460 620 / 1080 240 / 240 Balance 220 / 460 620 / 1080 240 / 240 Weight last 48 hrs Weight 127.006 kg Physical Exam Narrative: General: Alert oriented x3, patient seen laying in bed appearing comfortable at this time and 2 L nasal cannula. HEENT: Normocephalic, atraumatic, EOMI, breathing stable on 2 L. Cardio: Regular rate rhythm, normal S1-S2, large body habitus, heart sounds a bit muffled Respiratory: Diffuse rhonchi bilaterally, decreased sounds at bases, improved than yesterday GI: Abdomen soft, nontender, nondistended, bowel sounds + Behavior: Appropriate and cooperative Extremities: Trace bilateral pitting edema Data : 03/20/22 05:27 03/21/22 05:25 Micro: Microbiology 03/19/22 18:13 Blood Culture - Preliminary Blood NEGATIVE TO DATE 03/19/22 18:13 Blood Culture - Preliminary Blood NEGATIVE TO DATE A&P Assessment and plan (1) COVID-19: Status: Acute (2) Chronic atrial fibrillation: Status: Acute (3) Dyslipidemia (high LDL; low HDL): Status: Acute (4) History of permanent cardiac pacemaker placement: Status: Acute (5) Chronic episodic atrial fibrillation: Status: Acute (6) Peripheral arterial disease: Status: Acute (7) PVD (peripheral vascular disease): Status: Acute Plan #COVID-19 pneumonia #Chronic atrial fibrillation #Permanent pacemaker #Peripheral arterial disease #Peripheral neuropathy #Chronic diastolic heart failure, ? Continue Decadron remdesivir. Decadron for 10 days total, remdesivir x5 days or until discharge whichever is sooner. ? Continue on warfarin for atrial fibrillation ? Continue finasteride, fluoxetine, levothyroxine, Lopressor, omeprazole, sotalol, spironolactone ? Continue patient on isolation ? Procalcitonin negative. DIC profile reviewed ? Continue patient on Lasix 40 IV daily. ? We will continue on Augmentin x7 days total. Patient already on antibiotics from previous hospital visit - Add IS and acapella for patient today. DVT prophylaxis: Warfarin Full code updated at bedside Attestations Medical Necessity Statement*: continue iv steroids and remdesivir in hospital. still has increased O2 requirement on ambulation Coding Level of Care Code Acute Executive Kitchen Manager for Chg Fwd Diagnoses COVID-19 U07.1 Chronic atrial fibrillation I48.20 Dyslipidemia (high LDL; low HDL) E78.5 History of permanent cardiac pacemaker placement Z95.0 Chronic episodic atrial fibrillation I48.20 Peripheral arterial disease I73.9 PVD (peripheral vascular disease) I73.9
[2022-03-21] MEDS: FUROsemide 10 mg/mL SDV 4mL 40 MG IVP (14:46)
[2022-03-21 17:51] LABS: Glucose Point of Care 183 mg/dL (70-110)
[2022-03-21] MEDS: finasteride 5 mg Tablet PO (18:21)
[2022-03-21] MEDS: dexamethasone 10 mg/mL INJ 6 MG IVP (18:21)
[2022-03-21] MEDS: remdesivir 100 MG in sodium chloride 0.9% (100 ml) 80 ML IV (18:22)
[2022-03-21] MEDS: warfarin 2.5 mg Tablet PO (18:22)
[2022-03-21] MEDS: insulin lispro 100 unit/1 mL SUBCUT (18:22)
[2022-03-21] MEDS: acetaminophen 325 mg Tablet 650 MG PO (20:36)
[2022-03-21 21:08] LABS: Glucose Point of Care 153 mg/dL (70-110)
[2022-03-22] VITALS (10 sets, daily range): BP systolic 101–119; BP diastolic 68–78; PULSE 61–96; RESP 12–18; TEMP 36.4–36.5; O2SAT 88–94
[2022-03-22] MEDS: FUROsemide 10 mg/mL SDV 4mL 40 MG IVP ×2 (01:49→14:50)
[2022-03-22] MEDS: ipratropium-albuterol 3 mL Neb INHALATION ×3 (04:45→14:18)
[2022-03-22 05:49] LABS: INR 2.22 (0.8-1.2)
[2022-03-22 06:25] LABS: Glucose Point of Care 83 mg/dL (70-110)
[2022-03-22] MEDS: spironolactone 25 mg Tablet PO (06:35)
[2022-03-22] MEDS: sotalol 80 mg Tablet PO (06:35)
[2022-03-22] MEDS: pantoprazole DR 40 mg Tablet PO (06:35)
[2022-03-22] MEDS: fluoxetine 20 mg Capsule PO (06:35)
[2022-03-22] MEDS: multivitamin therapeutic Tablet 1 TAB PO (06:35)
[2022-03-22] MEDS: tamsulosin 0.4 mg Capsule PO (06:35)
--- NOTE | 2022-03-22 07:52 | PM.DCS ---
Discharge Providers Date of Admission: 03/19/22 16:59 Date of Discharge: March 21, 2022 Attending Provider at Admission: Heidy Taylor MD Attending Provider at Discharge: Heidy Taylor MD Primary Care Provider: Jennifer Ackerman MD Diagnoses at Discharge Discharge Diagnosis (1) COVID-19: Status: Acute (2) Chronic atrial fibrillation: Status: Acute (3) Dyslipidemia (high LDL; low HDL): Status: Acute (4) History of permanent cardiac pacemaker placement: Status: Acute (5) Chronic episodic atrial fibrillation: Status: Acute (6) Peripheral arterial disease: Status: Acute (7) PVD (peripheral vascular disease): Status: Acute Reason for Visit Reason for Visit: sob Brief History: Marcial Colindres is a 81 year old male patient of Dr. Brown follows up with him for A. fib, pacemaker, hypothyroid, sent to the hospital with chief complaint of worsening shortness of breath.? Patient is stating that he has been experiencing shortness of breath for quite some time he was evaluated in the ER on 03/07 and was discharged home however he is presenting back with worsening of his symptoms.? At baseline he uses 2 L of oxygen at this point in the ER he is on 2.5 L, he just got up to void urine and became extremely weak and lethargic.? Hemodynamically stable, A. fib RVR, afebrile, no leukocytosis, patient is very hard of hearing BNP around 800 which has worsened from his last time he is positive for COVID 19 with positive PCR result I will start him on remdesivir and Decadron, continue diuresis continue Coumadin check INR Patient is full code He has been experiencing COVID and related symptoms for about 2 to 3 weeks Hospital Course Hospital Course Patient admitted for COVID-19 pneumonia worsening shortness of breath. He has been started on Decadron, remdesivir. Continued on warfarin for A. fib. He was diuresed with Lasix 40 IV twice daily during hospital stay. Plan to send him home today with Augmentin x7 days total. Since patient took steroids recently outpatient and has had dexamethasone inpatient I will stop steroids at this time. He is clinically a lot better. Patient received total of 4 days of remdesivir. Requires 3 L on exertion and 2 L at rest. at bedside. Patient would like to go home. He does not have any complaints at this time. They will follow-up with his primary care doctor within 4 to 7 days of discharge. Patient ambulating without assistance. Physical Exam Narrative: General: Alert oriented x3, patient seen sitting up in bed appearing comfortable on 2.5 L nasal cannula. HEENT: Normocephalic, atraumatic, EOMI, breathing stable on 2.5 L.? Does cough from time to time during examination, large neck circumference Cardio: Regular rate rhythm, normal S1-S2, large body habitus, heart sounds a bit muffled Respiratory: Clear to auscultation bilaterally, no wheezes or rhonchi. GI: Abdomen soft, nontender, nondistended, bowel sounds + Behavior: Appropriate and cooperative Extremities: Trace bilateral pitting edema Discharge Data Studies Completed and Pending Completed Studies During Hospitalization Category Date Time Status XR chest 1V portable [id number] Stat Exams 03/19/22 15:13 Completed Pending at discharge Category Date Time Status Blood Culture Routine Lab 03/19/22 18:13 Results Prothrombin Time INR AM LABS Lab 03/22/22 04:00 Ordered Prothrombin Time INR AM LABS Lab 03/23/22 04:00 Ordered Radiology Impressions Chest X-Ray 03/19/22 15:13 IMPRESSION: 1. Bibasal plaque atelectasis. No acute process identified. 2. Mild cardiac enlargement unchanged. Laboratory Results WBC 6.0 10^3/uL (4.0-10.0) 03/20/22 05:27 Corrected WBC Cancelled 03/20/22 02:39 RBC 5.16 10^6/uL (4.1-5.3) 03/20/22 05:27 Hgb 14.9 g/dL (11.7-16.6) 03/20/22 05:27 Hct 46.4 % (42.0-52.0) 03/20/22 05:27 MCV 89.9 fl (80-94) 03/20/22 05:27 MCH 28.9 pg (28.0-34.0) 03/20/22 05:27 MCHC 32.1 g/dL (30.0-36.0) 03/20/22 05:27 RDW 13.8 % (12.1-15.1) 03/20/22 05:27 Plt Count 153 10^3/cmm (130-400) 03/20/22 05:27 MPV 11.5 fL (7.4-10.4) H 03/20/22 05:27 Gran % Cancelled 03/20/22 02:39 Neut % (Auto) 84.8 % 03/20/22 05:27 Lymph % (Auto) 10.2 % 03/20/22 05:27 [place] % (Auto) 4.0 % 03/20/22 05:27 Eos % (Auto) 0.0 % 03/20/22 05:27 Baso % (Auto) 0.2 % 03/20/22 05:27 Neut # (Auto) 5.06 10^3/uL (1.8-7.7) 03/20/22 05:27 Lymph # (Auto) 0.6 10^3/uL (0.8-4.8) L 03/20/22 05:27 [place] # (Auto) 0.2 10^3/uL (0.2-0.9) 03/20/22 05:27 Eos # (Auto) 0.0 10^3/uL (0.0-0.8) 03/20/22 05:27 Baso # (Auto) 0.0 10^3/uL (0.0-0.1) 03/20/22 05:27 Absolute Gran (auto) Cancelled 03/20/22 02:39 Nucleated RBC % (auto) 0 % 03/20/22 05:27 Nucleated RBCs # 0.0 /100WBC 03/20/22 05:27 PT 23.60 SECONDS (12.1-14.9) H 03/21/22 05:25 INR 2.06 (0.8-1.2) H 03/21/22 05:25 APTT 32.7 SECONDS (23.9-36.7) 03/20/22 05:27 Fibrinogen 602 mg/dL (174-498) H 03/20/22 05:27 Fibrin Degrad Products Neg, <10 ug/mL (NEG) 03/20/22 05:27 D-Dimer 0.37 ug/mIFEU (0-0.59) 03/20/22 05:27 Specimen Type Arterial 03/19/22 15:31 Sample Site Brachial, left 03/19/22 15:31 ABG pH 7.38 (7.35-7.45) 03/19/22 15:31 ABG pCO2 57.3 mmHg (35-45) H 03/19/22 15:31 ABG pO2 88.8 mmHg (80.0-100.0) 03/19/22 15:31 ABG HCO3 33.5 mmol/L (22-26) H 03/19/22 15:31 ABG O2 Saturation 97.3 03/19/22 15:31 ABG Base Excess 6.3 mmol/L (-2.0-2.0) H 03/19/22 15:31 Cole Test Pos 03/19/22 15:31 A-a O2 Gradient 5.4 mmHg (5-10) 03/19/22 15:31 Hematocrit 45.9 % (42-52) 03/19/22 15:31 Hgb O2 Saturation 95.4 % (95-100) 03/19/22 15:31 Carboxyhemoglobin 1.2 %THgb (0.4-20.1) 03/19/22 15:31 Methemoglobin 0.8 % (0.4-1.5) 03/19/22 15:31 Total Hemoglobin 15.0 g/dL (14-18) 03/19/22 15:31 Sodium 136.0 mmol/L (131-143) 03/19/22 15:31 Potassium 4.3 mmol/L (3.5-5.0) 03/19/22 15:31 Glucose 160.0 mg/dL (70-115) H 03/19/22 15:31 Ionized Calcium 1.2 mmol/L (1.1-1.4) 03/19/22 15:31 O2 Delivery Device Nc 03/19/22 15:31 O2 Liters/Min 2.0 % 03/19/22 15:31 FiO2 28.0 % 03/19/22 15:31 Title Clerk Automobile ID [place] 03/19/22 15:31 Sodium 139 mmol/L (136-145) 03/21/22 05:25 Potassium 4.4 mmol/L (3.5-5.1) 03/21/22 05:25 Chloride 95 mmol/L (98-107) L 03/21/22 05:25 Carbon Dioxide 33 mmol/L (22-29) H 03/21/22 05:25 Anion Gap 15.4 (5-19) 03/21/22 05:25 BUN 37 mg/dL (8-23) H 03/21/22 05:25 Creatinine 1.2 mg/dL (0.7-1.2) 03/21/22 05:25 GFR Calculation Not Reportable 03/21/22 05:25 Glucose 135 mg/dL (65-115) H 03/21/22 05:25 POC Glucose 157 mg/dL (70-110) H 03/20/22 21:08 Calculated Osmolality 299 mOsm/kg (285-295) H 03/21/22 05:25 Lactic Acid 1.5 mmol/L (0.5-2.2) 03/19/22 15:20 Calcium 9.2 mg/dL (8.5-10.5) 03/21/22 05:25 Phosphorus 3.4 mg/dL (2.5-4.5) 03/20/22 05:27 Magnesium 2.1 mg/dL (1.7-2.3) 03/21/22 05:25 Total Bilirubin 0.2 mg/dL (0.15-1.2) 03/20/22 05:27 AST 15 U/L (0-40) 03/20/22 05:27 ALT 15 U/L (0-41) 03/20/22 05:27 Alkaline Phosphatase 66 U/L (40-130) 03/20/22 05:27 Troponin T Baseline 16 ng/L (0-15) H 03/19/22 15:20 Troponin T 120 Minute 16.82 ng/L (0-15) H 03/19/22 17:35 Delta Troponin T 0.82 ABS# (0-10) 03/19/22 17:35 Troponin T Hi Sens 6Hr 15.14 ng/L (0-15) H 03/19/22 21:09 Troponin T Hi Sens 6Hr Delta -0.86 ng/L (0-12) L 03/19/22 21:09 C-Reactive Protein 97.2 mg/L (0.0-4.9) H 03/20/22 05:27 NT-Pro-B Natriuret Pep 869 pg/mL (0-450) H 03/19/22 15:20 Total Protein 6.1 g/dL (6.6-8.7) L 03/20/22 05:27 Albumin 3.7 g/dL (3.5-5.2) 03/20/22 05:27 Globulin 2.4 g/dL (1.3-4.6) 03/20/22 05:27 Procalcitonin 0.08 ng/mL (0-0.5) 03/20/22 05:27 TSH 1.96 uIU/mL (0.27-4.20) 03/19/22 15:20 Urine Color Yellow (Yellow) 03/19/22 16:21 Urine Appearance Clear (CLEAR) 03/19/22 16:21 Urine pH 6 (5-7) 03/19/22 16:21 Ur Specific [place] 1.020 (1.005-1.030) 03/19/22 16:21 Urine Protein Neg (Negative) 03/19/22 16:21 Urine Glucose (UA) Norm (Normal) 03/19/22 16:21 Urine Ketones Negative (Negative) 03/19/22 16:21 Urine Blood Neg (Negative) 03/19/22 16:21 Urine Nitrate Negative (Negative) 03/19/22 16:21 Urine Bilirubin Neg (Negative) 03/19/22 16:21 Urine Urobilinogen Norm mg/dL (Negative) 03/19/22 16:21 Ur Leukocyte Esterase Negative (Negative) 03/19/22 16:21 Coronavirus 229E (PCR) Not detected (NOT DETECT) 03/19/22 15:20 Influenza Type A Ag Negative (Negative) 03/19/22 15:20 Influenza Type B Ag Negative (Negative) 03/19/22 15:20 SARS-CoV-2 (PCR) Detected (NOT DETECT) A 03/19/22 15:20 Vitals Last Vital Signs Temp 97.5 F L 03/21/22 04:51 Pulse 105 H 03/21/22 04:51 Resp 19 H 03/21/22 04:51 BP 134/91 03/21/22 04:51 Pulse Ox 98 03/21/22 04:51 O2 Del Method 03/21/22 04:51 O2 Flow Rate 2 03/21/22 04:51 FiO2 35 03/20/22 05:13 Discharge Plan Discharge Patient Disposition: Home Condition: Stable Prescriptions: New Zithromax Z-Luis Alberto 250 mg tablet 250 mg PO DAILY 5 Days Qty: 6 0RF amoxicillin-pot clavulanate 875-125 mg tablet 1 tab PO BID 5 Days Qty: 10 0RF Continued albuterol sulfate 2.5 mg /3 mL (0.083 %) solution for nebulization 2.5 mg INHALATION Q4H PRN (Reason: Shortness Of Breath) finasteride 5 mg tablet 5 mg PO DAILY@1700 omega 1-yhj-htx-fish oil [Fish Oil] 1,000 mg (120 mg-180 mg) capsule 1 cap PO BID fluoxetine 20 mg capsule 20 mg PO DAILY@07 lorazepam 1 mg tablet 0.5 mg PO TID PRN (Reason: Anxiety) multivitamin Tablet 1 tab PO DAILY@07 nitroglycerin [Nitrostat] 0.4 mg tablet, sublingual 0.4 mg SUBLINGUAL Q5M PRN (Reason: Chest Pain) omeprazole 40 mg capsule,delayed release(DR/EC) 40 mg PO DAILY@07 potassium chloride 10 mEq capsule, extended release 10 meq PO DAILY sotalol 80 mg tablet 80 mg PO BID@07,17 tamsulosin 0.4 mg capsule 0.4 mg PO DAILY@07 warfarin 2.5 mg tablet 2.5 mg PO DAILY@1700 furosemide 20 mg tablet 20 mg PO BID fluticasone propion-salmeterol [Advair Diskus] 500-50 mcg/dose blister with device 1 inh INHALATION BID spironolactone 25 mg tablet 25 mg PO BID@07,17 ferrous sulfate 325 mg (65 mg iron) tablet 325 mg PO Q7D (DME) GILDA See Rx Instructions .Route .MEDSUPPLY Qty: 1 0RF Rx Instructions: As directed (DME) FAST FORM COCK UP SPLINT See Rx Instructions .Route .MEDSUPPLY Qty: 1 0RF Rx Instructions: As directed betamethasone dipropionate 0.05 % ointment 1 applic topical BID Qty: 45 2RF Rx Instructions: To elbows no more than 3wks/mo (DME) COCK UP SPLINT See Rx Instructions .Route .MEDSUPPLY Qty: 1 0RF Rx Instructions: As directed (DME) HINGED KNEE BRACE See Rx Instructions .Route .MEDSUPPLY Qty: 1 0RF Rx Instructions: As directed levothyroxine 75 mcg tablet 37.5 mcg PO DAILY metoprolol tartrate 50 mg tablet See Rx Instructions .ROUTE .COMPLEX Qty: 270 3RF Dose Instruction: TAKE ONE AND ONE HALF (1/2) TABLETS BY MOUTH TWICE DAILY Rx Instructions: TAKE ONE AND ONE HALF (1/2) TABLETS BY MOUTH TWICE DAILY hydrocodone-acetaminophen 5-325 mg Tablet 1 tab PO BID PRN (Reason: Pain) albuterol sulfate 90 mcg/actuation HFA aerosol inhaler 2 inh inhalation Q4H PRN (Reason: shortness of breath or wheezing) Qty: 8.5 2RF Discharge Orders: Discharge Order (Routine); Ordered 03/22/22 Ordered By: Heidy Taylor Other Ambulatory Orders: DME: Oxygen (Order) Location: None Selected Ordered By: Heidy Taylor Referrals: Jennifer Ackerman MD [Primary Care Provider] - 03/27/22 10:15 am Discharge Diet: Cardiac Discharge Activity: Increase activity as tolerated and Oxygen as instructed Patient Instructions: Azithromycin (By mouth), COVID-19 (Coronavirus Disease 2019) (GEN), Opioid Safety Activity Restrictions/Additional Instructions: Please follow-up with your primary care doctor within 4 to 7 days of discharge. Discharge Attestations Time Spent in Discharge Care*: less than 30 min Quality Metrics Clinical Quality Measures [ No reported AMI, CVA or VTE this stay] Coding Level of Care Code Acute Chg FW DC note Diagnoses COVID-19 U07.1 Chronic atrial fibrillation I48.20 Dyslipidemia (high LDL; low HDL) E78.5 History of permanent cardiac pacemaker placement Z95.0 Chronic episodic atrial fibrillation I48.20 Peripheral arterial disease I73.9 PVD (peripheral vascular disease) I73.9
--- NOTE | 2022-03-22 08:15 | XRR_ITS ---
PROCEDURE INFORMATION: Exam: XR Chest Exam date and time: 03/22/2022 11:21 AM Age: 81 years old Clinical indication: Prior surgery; Surgery date: 6+ months; Surgery type: Pacemaker; Patient HX: Has had covid; Shortness of breath still ongoing. TECHNIQUE: Imaging protocol: Radiologic exam of the chest. Views: 1 view. COMPARISON: CR XR chest 1V portable [id number] 03/19/2022 3:18 PM FINDINGS: Tubes, catheters and devices: Pacemaker. Lungs: Unremarkable. No consolidation. Pleural spaces: Unremarkable. No pleural effusion. No pneumothorax. Heart/Mediastinum: Cardiomegaly. Diaphragm: Elevated right hemidiaphragm. Bones/joints: Unremarkable. XR/XR chest 1V portable [id number] Follow up IMPRESSION: No acute findings.
[2022-03-22] MEDS: levothyroxine 75 mcg Tablet 37.5 MCG PO (10:03)
[2022-03-22] MEDS: famotidine 20 mg Tablet PO (10:04)
[2022-03-22] MEDS: potassium chloride ER 10 mEq Tablet PO (10:04)
[2022-03-22] MEDS: metoprolol tartrate 50 mg Tablet 75 MG PO (10:04)
[2022-03-22 11:01] LABS: Glucose Point of Care 228 mg/dL (70-110)
--- NOTE | 2022-03-22 11:11 | PC.SOCIAL ---
IMM Update pg 2 of IMM updated and reviewed w/ patient. Copy provided and Copy dated, initialed and placed in chart.
[2022-03-22] MEDS: insulin lispro 100 unit/1 mL SUBCUT (11:46)
[2022-03-22] MEDS: acetaminophen 325 mg Tablet 650 MG PO (13:43)
[2022-03-22] MEDS: FUROsemide 10 mg/mL SDV 2mL 20 MG IVP (14:50)
--- NOTE | 2022-03-22 15:34 | PC.NURSE ---
patient and his verbalized understanding of discharge instructions, home medications, and follow up appointments.
== END 2022-03-22 15:39 | disposition home health service (06) | DRG 177 ==
LOC: ER 17:43 → MEDSURG 21:21
PROVIDERS: Admitting Provider Internal Medicine; Emergency Provider Emergency Medicine; PCP Family Medicine; Visit Provider Internal Medicine
DX: U07.1 COVID-19 (principal); I50.33 Acute on chronic diastolic (congestive) heart failure; J12.82 Pneumonia due to coronavirus disease 2019; I48.20 Chronic atrial fibrillation, unspecified; Z95.0 Presence of cardiac pacemaker; E03.9 Hypothyroidism, unspecified; H91.90 Unspecified hearing loss, unspecified ear; F41.9 Anxiety disorder, unspecified; I11.0 Hypertensive heart disease with heart failure; J44.9 Chronic obstructive pulmonary disease, unspecified; E78.2 Mixed hyperlipidemia; G60.9 Hereditary and idiopathic neuropathy, unspecified; I73.9 Peripheral vascular disease, unspecified; Z79.891 Long term (current) use of opiate analgesic; Z79.01 Long term (current) use of anticoagulants; Z79.51 Long term (current) use of inhaled steroids; Z87.891 Personal history of nicotine dependence
CPT/HCPCS: 36415; 36416; 36600; 71045; 80048; 80051; 80053; 81003; 82330; 82805; 82962; 83605; 83735; 83880; 84100; 84145; 84443; 84484; 85025; 85362; 85378; 85384; 85610; 85730; 86140; 87040; 87635; 87804; 93005; 94640; 94660; 94664; 94760; 96372; 96374; 96375; 99285; J1100; J1644; J1815; J1940; J2930; J8540

== ENCOUNTER → 2022-05-29 13:05 | Outpatient (BNVA) | payer MEDICARE, OTHER, SELFPAY | PROVIDERS: PCP Family Medicine; Visit Provider Podiatrist Foot & Ankle Surgery | DX: E11.8 Type 2 diabetes mellitus with unspecified complications (principal); G60.9 Hereditary and idiopathic neuropathy, unspecified; L60.3 Nail dystrophy; I73.9 Peripheral vascular disease, unspecified | CPT/HCPCS: 11721 ==

== ENCOUNTER 2022-08-01 11:42 | Outpatient (CLI) | payer MEDICARE, OTHER, SELFPAY ==
[2022-08-01 12:29] LABS: INR 1.56 (0.8-1.2)
== END 2022-08-01 11:43 | disposition home or self-care (01) ==
LOC: LAB 11:46
PROVIDERS: PCP Family Medicine; Visit Provider Family Medicine
DX: Z01.89 Encounter for other specified special examinations (principal)
CPT/HCPCS: 85610

== ENCOUNTER 2022-08-21 07:53 | Emergency (ER) | payer MEDICARE, OTHER, SELFPAY ==
[2022-08-21 07:56] VITALS: BP 108/80; PULSE 100; RESP 14; TEMP 36.8; O2SAT 95; BMI 42.3
--- NOTE | 2022-08-21 08:02 | CT_ITS ---
WS: [id number] CT CERVICAL SPINE HISTORY: neck pain after fall TECHNIQUE: Contiguous 2.5 mm axial imaging performed through the entire cervical spine. Sagittal and coronal reformats also performed. All CT scans at [facility] use at least one of these dose o ptimization techniques: automated exposure control; mA and/or kV adjustment per patient size (include s targeted exams where dose is matched to clinical indication); or iterative reconstruction. DLP: 1204.00 mGy.cm COMPARISON: 10/09/2020 Mild straightening of the normal cervical lordosis. Moderate disc space narrowing at C6-7. There is v nathaniel slight anterior wedging of T2 that was not present on 10/09/2020. No retropulsion. Very minimal an terior wedging of T1 is new. Facet joints normally aligned. Lateral masses of C1 and C2 are aligned. Odontoid is intact. Normal craniocervical alignment. C2-C3: Normal. C3-C4: Bilateral facet joint arthritis and foraminal stenosis. C4-C5: Moderate bilateral facet joint arthritis and foraminal stenosis. C5-C6: Bilateral moderate facet joint arthritis and foraminal stenosis. C6-C7: Bilateral facet joint arthritis and foraminal stenosis. C7-T1: Facet joint arthritis and foraminal stenosis. CT/CT cervical spin wo con* [id number] IMPRESSION: 1. No acute cervical spine fracture. Osteopenia. 2. New very minimal anterior wedging of T1 and T2 since 10/09/2020. Cannot conf irm acute fracture. Age indeterminate anterior wedging. MRI may be helpful to e valuate for marrow edema.
--- NOTE | 2022-08-21 08:02 | CT_ITS ---
WS: [id number] CT HEAD NONCONTRAST HISTORY: fall with head injury TECHNIQUE: Contiguous axial imaging performed through the brain in 2.5 mm imaging. Bone and soft tiss ue windows. Sagittal and coronal reformats reviewed. All CT scans at [facility] use at least one of these dose optimization techniques: automated exposure control; mA and/or kV adjustment per pa tient size (includes targeted exams where dose is matched to clinical indication); or iterative recon struction. DLP: 1204.00 mGy.cm COMPARISON: 03/07/2022 Acute intracranial hemorrhage is identified. Acute blood layering along the LEFT tentorium extending towards the LEFT ambient cistern. Intrapeduncular cistern is negative. There is a small amount of blood layering in the occipital horns of the lateral ventricles. Additional focal blood in the mid RIGHT lateral ventricle. No parenchymal hemorrhage is identified. Mild atrophy and small vessel ischemic disease. Ventricles: Ventricles are normal size. No hydrocephalus. Paranasal sinuses: As visualized are clear. Mastoid air cells: Well pneumatized. Calvarium and scalp: Skull is intact with no soft tissue edema or swelling. CT/CT head wo con* [id number] IMPRESSION: 1. Acute intracranial hemorrhage. Subdural blood layering along the LEFT tento rium towards the ambient cistern, small amount. 2. Additional small amount of intraventricular hemorrhage layering in the occi pital horns bilaterally and a small amount of blood in the mid RIGHT lateral ve ntricle. 3. No hydrocephalus. 4. No skull fracture. Notified KIM Dhaliwal at 08/21/2022 8:47 AM.
--- NOTE | 2022-08-21 08:12 | W.ED.FALL ---
Documented by User: KIM Dhaliwal 08/21/22 11:17 HPI - Fall General: Chief Complaint: Fall Stated Complaint: HEAD PAIN FROM FALL 1 WEEK AGO Time Seen by Provider: 08/21/22 08:01 History of Present Illness: Patient is an 82-year-old male who comes to the ED with headache and neck pain after fall. Past medical history of peripheral vascular disease, peripheral neuropathy, A-fib, pacemaker, hypertension and COPD. Patient is on 3 L of oxygen at home. Approximately 1 week ago patient had a fall. He endorses tripping while walking down his hallway and he fell forward. He hit the top of his head and forehead on the wall and on the floor. His found him sitting up on the ground but he was unable to get up himself. She contacted some neighbors and they came over and helped him get up. Denies any loss of consciousness. He has been complaining of having a headache and some nausea since fall over a week ago. He also endorses some chest pain as well that is been going on since fall. He describes the chest pain as a constant aching pain in the bilateral lower chest. He endorses having neck pain as well. Patient uses a walker at baseline, but when he tripped he was not using a walker. Associated symptoms-after fall: Reports headache(s) and neck pain; Denies abdominal pain, chest pain or hematuria Review of Systems Const: Denies: fever(s), chills or fatigue Eyes: Denies: change in vision or eye discomfort ENMT: Denies: throat pain, odynophagia, nasal discharge or nasal congestion Card: Denies: chest pain, palpitations, edema, swelling of feet/ankles, dyspnea on exertion or orthopnea Resp: Denies: dyspnea, productive cough or non-productive cough GI: Denies: abdominal pain, nausea, vomiting, diarrhea, constipation or hematochezia : Denies: flank pain, difficulty urinating, dysuria or hematuria Musc: Reports: neck pain; Denies: back pain or extremity swelling Skin/Breast: Denies: rash or new lesions Neuro: Reports: headache(s); Denies: numbness in extremities or weakness in extremities PFS ED PFSH: Medical History A-fib Anxiety disorder Benign essential hypertension with target blood pressure below 140/90 Chest pain Chronic atrial fibrillation Chronic episodic atrial fibrillation COPD (chronic obstructive pulmonary disease) Dyslipidemia (high LDL; low HDL) Leg swelling Mixed hyperlipidemia Peripheral neuropathy PVD (peripheral vascular disease) Retinal tear of left eye SOB (shortness of breath) Surgical History History of permanent cardiac pacemaker placement Family History Brother CAD (coronary artery disease) Mother Cancer Father Cancer Sister Cancer Family/Other Cancer Denies family history of Diabetes Clotting disorder Dementia Chronic kidney disease (CKD) Suicide Anesthesia complication Bleeding disorder Lung disease Stroke Social History Smoking and tobacco status: former smoker Alcohol intake: never Physical Exam Const: COMMON NORMALS: patient oriented x3 HENMT: COMMON NORMALS: normocephalic HEAD & SCALP: normocephalic MOUTH: Normal oral and palatal mucosa present THROAT: posterior oropharynx normal and uvula midline Neck/C-Spine: COMMON NORMALS: supple GENERAL: Yes normal visual inspection Resp: COMMON NORMALS: normal respiratory effort, No retractions, No use of accessory muscles and clear to auscultation bilaterally AUSCULTATION: clear to auscultation bilaterally Cardio: COMMON NORMALS: regular rate, regular rhythm, S1 normal heart sound present, S2 normal heart sound present, No gallops present (Cardio), No clicks present (Cardio), No murmurs present (Cardio) and Peripheral pulses 2+ throughout RATE: regular rate RHYTHM: regular rhythm HEART SOUNDS: S1 normal heart sound present and S2 normal heart sound present PERIPHERAL PULSES: Peripheral pulses 2+ throughout GI: COMMON NORMALS: Normal to inspection, nondistended, normoactive bowel sounds present, Soft to palpation, non-tender and no masses PALPATION: Yes Soft to palpation : COMMON NORMALS: Yes no CVA tenderness BLADDER/KIDNEY EXAM: Yes no CVA tenderness Back/Pelvis: COMMON NORMALS: no CVA tenderness Extremity: COMMON NORMALS: normal to inspection Neuro: COMMON NORMALS: patient oriented x3, CN's II-XII intact bilaterally, moves all extremities and no focal motor deficits SPEECH: speech normal GAIT: Yes Unable to assess gait Skin: GENERAL SKIN EXAM: dry skin Course Vital Signs: Vital signs: Vital Signs Temperature 98.3 F 08/21/22 07:56 Pulse Rate 92 08/21/22 09:28 Respiratory Rate 16 08/21/22 10:34 Blood Pressure 143/99 08/21/22 09:28 Pulse Oximetry 96 08/21/22 10:34 Oxygen Delivery Me thod 08/21/22 09:28 Oxygen Flow Rate 3 08/21/22 09:28 MDM - Fall Lab Data 08/21/22 08:50 08/21/22 08:50 Radiology Impressions Cervical Spine CT 08/21/22 08:02 IMPRESSION: 1. No acute cervical spine fracture. Osteopenia. 2. New very minimal anterior wedging of T1 and T2 since 10/09/2020. Cannot confirm acute fracture. Age indeterminate anterior wedging. MRI may be helpful to evaluate for marrow edema. Head CT 08/21/22 08:02 IMPRESSION: 1. Acute intracranial hemorrhage. Subdural blood layering along the LEFT tentorium towards the ambient cistern, small amount. 2. Additional small amount of intraventricular hemorrhage layering in the occipital horns bilaterally and a small amount of blood in the mid RIGHT lateral ventricle. 3. No hydrocephalus. 4. No skull fracture. Notified KIM Dhaliwal at 08/21/2022 8:47 AM. Chest X-Ray 08/21/22 08:41 Impression: Cardiomegaly Hand X-Ray 08/21/22 08:51 Impression: Negative left hand. Laboratory Results WBC 8.1 10^3/uL (4.0-10.0) 08/21/22 09:14 Corrected WBC Cancelled 08/21/22 08:50 RBC 5.27 10^6/uL (4.1-5.3) 08/21/22 09:14 Hgb 14.5 g/dL (11.7-16.6) 08/21/22 09:14 Hct 47.9 % (42.0-52.0) 08/21/22 09:14 MCV 90.9 fl (80-94) 08/21/22 09:14 MCH 27.5 pg (28.0-34.0) L 08/21/22 09:14 MCHC 30.3 g/dL (30.0-36.0) 08/21/22 09:14 RDW 13.9 % (12.1-15.1) 08/21/22 09:14 Plt Count 229 10^3/cmm (130-400) 08/21/22 09:14 MPV 12.2 fL (7.4-10.4) H 08/21/22 09:14 Gran % Cancelled 08/21/22 08:50 Neut % (Auto) 73.3 % 08/21/22 09:14 Lymph % (Auto) 13.1 % 08/21/22 09:14 [place] % (Auto) 12.1 % 08/21/22 09:14 Eos % (Auto) 0.9 % 08/21/22 09:14 Baso % (Auto) 0.1 % 08/21/22 09:14 Neut # (Auto) 5.95 10^3/uL (1.8-7.7) 08/21/22 09:14 Lymph # (Auto) 1.1 10^3/uL (0.8-4.8) 08/21/22 09:14 [place] # (Auto) 1.0 10^3/uL (0.2-0.9) H 08/21/22 09:14 Eos # (Auto) 0.1 10^3/uL (0.0-0.8) 08/21/22 09:14 Baso # (Auto) 0.0 10^3/uL (0.0-0.1) 08/21/22 09:14 Absolute Gran (auto) Cancelled 08/21/22 08:50 Nucleated RBC % (auto) 0 % 08/21/22 09:14 Nucleated RBCs # 0.0 /100WBC 08/21/22 09:14 PT 27.70 SECONDS (12.1-14.9) H 08/21/22 09:14 INR 2.47 (0.8-1.2) H 08/21/22 09:14 APTT 37.9 SECONDS (23.9-36.7) H 08/21/22 09:14 Sodium 137 mmol/L (136-145) 08/21/22 09:14 Potassium 4.2 mmol/L (3.5-5.1) 08/21/22 09:14 Chloride 93 mmol/L (98-107) L 08/21/22 09:14 Carbon Dioxide 30 mmol/L (22-29) H 08/21/22 09:14 Anion Gap 18.2 (5-19) 08/21/22 09:14 BUN 13 mg/dL (8-23) 08/21/22 09:14 Creatinine 1.0 mg/dL (0.7-1.2) 08/21/22 09:14 GFR Calculation Not Reportable 08/21/22 09:14 Glucose 131 mg/dL (65-115) H 08/21/22 09:14 Calculated Osmolality 286 mOsm/kg (285-295) 08/21/22 09:14 Calcium 9.2 mg/dL (8.5-10.5) 08/21/22 09:14 Total Bilirubin 0.5 mg/dL (0.15-1.2) 08/21/22 09:14 AST 15 U/L (0-40) 08/21/22 09:14 ALT 14 U/L (0-41) 08/21/22 09:14 Alkaline Phosphatase 86 U/L (40-130) 08/21/22 09:14 Troponin T Baseline 15 ng/L (0-15) 08/21/22 09:14 NT-Pro-B Natriuret Pep 613 pg/mL (0-450) H 08/21/22 09:14 Total Protein 7.5 g/dL (6.6-8.7) 08/21/22 09:14 Albumin 4.0 g/dL (3.5-5.2) 08/21/22 09:14 Globulin 3.5 g/dL (1.3-4.6) 08/21/22 09:14 Discharge Plan Discharge Patient Disposition: Transfer to ED Clinical Impression: Acute subdural hematoma, Intraventricular hemorrhage, Anticoagulation excessive Condition: Stable Prescriptions: No Action albuterol sulfate 2.5 mg /3 mL (0.083 %) solution for nebulization 2.5 mg INHALATION Q4H PRN (Reason: Shortness Of Breath) finasteride 5 mg tablet 5 mg PO DAILY@1700 omega 9-xrp-oux-fish oil [Fish Oil] 1,000 mg (120 mg-180 mg) capsule 1 cap PO BID fluoxetine 20 mg capsule 20 mg PO DAILY@07 lorazepam 1 mg tablet 0.5 mg PO TID PRN (Reason: Anxiety) multivitamin Tablet 1 tab PO DAILY@07 nitroglycerin [Nitrostat] 0.4 mg tablet, sublingual 0.4 mg SUBLINGUAL Q5M PRN (Reason: Chest Pain) omeprazole 40 mg capsule,delayed release(DR/EC) 40 mg PO DAILY@07 potassium chloride 10 mEq capsule, extended release 10 meq PO DAILY sotalol 80 mg tablet 80 mg PO BID@07,17 tamsulosin 0.4 mg capsule 0.4 mg PO DAILY@07 warfarin 2.5 mg tablet 2.5 mg PO DAILY@1700 furosemide 20 mg tablet 20 mg PO BID spironolactone 25 mg tablet 25 mg PO BID@07,17 ferrous sulfate 325 mg (65 mg iron) tablet 325 mg PO Q7D (DME) GILDA See Rx Instructions .Route .MEDSUPPLY Qty: 1 0RF Rx Instructions: As directed (DME) FAST FORM COCK UP SPLINT See Rx Instructions .Route .MEDSUPPLY Qty: 1 0RF Rx Instructions: As directed betamethasone dipropionate 0.05 % ointment 1 applic topical BID Qty: 45 2RF Rx Instructions: To elbows no more than 3wks/mo (DME) COCK UP SPLINT See Rx Instructions .Route .MEDSUPPLY Qty: 1 0RF Rx Instructions: As directed (DME) HINGED KNEE BRACE See Rx Instructions .Route .MEDSUPPLY Qty: 1 0RF Rx Instructions: As directed levothyroxine 75 mcg tablet 37.5 mcg PO DAILY hydrocodone-acetaminophen 5-325 mg Tablet 1 tab PO BID PRN (Reason: Pain) albuterol sulfate 90 mcg/actuation HFA aerosol inhaler 2 inh inhalation Q4H PRN (Reason: shortness of breath or wheezing) Qty: 8.5 2RF docusate sodium 100 mg Capsule 100 mg PO BID budesonide 0.5 mg/2 mL Suspension For Nebulization 0.5 mg INHALATION BID formoterol fumarate 20 mcg/2 mL Solution For Nebulization 2 ml INHALATION BID Referrals: Jennifer Ackerman MD [Primary Care Provider] - Sign Out Sign Out Data: Patient Sign Out occurred on 08/21/22 at 09:01. Patient's care was discussed, and care was transferred from to Gideon Camejo DO. Coding Level of Care Code ED Soil Biology Teacher for [facility] Fwd Exam Comprehensive Documented by User: Gideon Camejo DO 08/21/22 11:12 HPI - Fall General: Chief Complaint: Fall Stated Complaint: HEAD PAIN FROM FALL 1 WEEK AGO Time Seen by Provider: 08/21/22 08:01 [facility] ED PFSH: Medical History A-fib Anxiety disorder Benign essential hypertension with target blood pressure below 140/90 Chest pain Chronic atrial fibrillation Chronic episodic atrial fibrillation COPD (chronic obstructive pulmonary disease) Dyslipidemia (high LDL; low HDL) Leg swelling Mixed hyperlipidemia Peripheral neuropathy PVD (peripheral vascular disease) Retinal tear of left eye SOB (shortness of breath) Surgical History History of permanent cardiac pacemaker placement Family History Brother CAD (coronary artery disease) Mother Cancer Father Cancer Sister Cancer Family/Other Cancer Denies family history of Diabetes Clotting disorder Dementia Chronic kidney disease (CKD) Suicide Anesthesia complication Bleeding disorder Lung disease Stroke Social History Smoking and tobacco status: former smoker Alcohol intake: never Physical Exam Neuro: OTHER: No focal neurologic deficits Course Vital Signs: Vital signs: Vital Signs Temperature 98.3 F 08/21/22 07:56 Pulse Rate 92 08/21/22 09:28 Respiratory Rate 16 08/21/22 10:34 Blood Pressure 143/99 08/21/22 09:28 Pulse Oximetry 96 08/21/22 10:34 Oxygen Delivery Me thod 08/21/22 09:28 Oxygen Flow Rate 3 08/21/22 09:28 MDM - Fall Medical Decision Making Patient care handoff received from Seferino Curry continuation of ED evaluation. I personally saw and evaluated patient and reperformed roblero portions of E/M. Note reviewed patient interviewed and examined. Patient awake alert and oriented. His INR is elevated he fell 2 weeks because of subdural and intraventricular bleed. Patient given vitamin K as well as fresh frozen plasma. We will transfer to [facility] Dr. Huizar is receiving an ER to ER transfer. Discussed with family. Labs and imaging reviewed in the chart and with the patient as well. Medical Records I reviewed the patient's medical records. Lab Data I reviewed the patient's lab results. 08/21/22 08:50 08/21/22 08:50 Radiology Impressions Cervical Spine CT 08/21/22 08:02 IMPRESSION: 1. No acute cervical spine fracture. Osteopenia. 2. New very minimal anterior wedging of T1 and T2 since 10/09/2020. Cannot confirm acute fracture. Age indeterminate anterior wedging. MRI may be helpful to evaluate for marrow edema. Head CT 08/21/22 08:02 IMPRESSION: 1. Acute intracranial hemorrhage. Subdural blood layering along the LEFT tentorium towards the ambient cistern, small amount. 2. Additional small amount of intraventricular hemorrhage layering in the occipital horns bilaterally and a small amount of blood in the mid RIGHT lateral ventricle. 3. No hydrocephalus. 4. No skull fracture. Notified KIM Dhaliwal at 08/21/2022 8:47 AM. Chest X-Ray 08/21/22 08:41 Impression: Cardiomegaly Hand X-Ray 08/21/22 08:51 Impression: Negative left hand. Laboratory Results WBC 8.1 10^3/uL (4.0-10.0) 08/21/22 09:14 Corrected WBC Cancelled 08/21/22 08:50 RBC 5.27 10^6/uL (4.1-5.3) 08/21/22 09:14 Hgb 14.5 g/dL (11.7-16.6) 08/21/22 09:14 Hct 47.9 % (42.0-52.0) 08/21/22 09:14 MCV 90.9 fl (80-94) 08/21/22 09:14 MCH 27.5 pg (28.0-34.0) L 08/21/22 09:14 MCHC 30.3 g/dL (30.0-36.0) 08/21/22 09:14 RDW 13.9 % (12.1-15.1) 08/21/22 09:14 Plt Count 229 10^3/cmm (130-400) 08/21/22 09:14 MPV 12.2 fL (7.4-10.4) H 08/21/22 09:14 Gran % Cancelled 08/21/22 08:50 Neut % (Auto) 73.3 % 08/21/22 09:14 Lymph % (Auto) 13.1 % 08/21/22 09:14 [place] % (Auto) 12.1 % 08/21/22 09:14 Eos % (Auto) 0.9 % 08/21/22 09:14 Baso % (Auto) 0.1 % 08/21/22 09:14 Neut # (Auto) 5.95 10^3/uL (1.8-7.7) 08/21/22 09:14 Lymph # (Auto) 1.1 10^3/uL (0.8-4.8) 08/21/22 09:14 [place] # (Auto) 1.0 10^3/uL (0.2-0.9) H 08/21/22 09:14 Eos # (Auto) 0.1 10^3/uL (0.0-0.8) 08/21/22 09:14 Baso # (Auto) 0.0 10^3/uL (0.0-0.1) 08/21/22 09:14 Absolute Gran (auto) Cancelled 08/21/22 08:50 Nucleated RBC % (auto) 0 % 08/21/22 09:14 Nucleated RBCs # 0.0 /100WBC 08/21/22 09:14 PT 27.70 SECONDS (12.1-14.9) H 08/21/22 09:14 INR 2.47 (0.8-1.2) H 08/21/22 09:14 APTT 37.9 SECONDS (23.9-36.7) H 08/21/22 09:14 Sodium 137 mmol/L (136-145) 08/21/22 09:14 Potassium 4.2 mmol/L (3.5-5.1) 08/21/22 09:14 Chloride 93 mmol/L (98-107) L 08/21/22 09:14 Carbon Dioxide 30 mmol/L (22-29) H 08/21/22 09:14 Anion Gap 18.2 (5-19) 08/21/22 09:14 BUN 13 mg/dL (8-23) 08/21/22 09:14 Creatinine 1.0 mg/dL (0.7-1.2) 08/21/22 09:14 GFR Calculation Not Reportable 08/21/22 09:14 Glucose 131 mg/dL (65-115) H 08/21/22 09:14 Calculated Osmolality 286 mOsm/kg (285-295) 08/21/22 09:14 Calcium 9.2 mg/dL (8.5-10.5) 08/21/22 09:14 Total Bilirubin 0.5 mg/dL (0.15-1.2) 08/21/22 09:14 AST 15 U/L (0-40) 08/21/22 09:14 ALT 14 U/L (0-41) 08/21/22 09:14 Alkaline Phosphatase 86 U/L (40-130) 08/21/22 09:14 Troponin T Baseline 15 ng/L (0-15) 08/21/22 09:14 NT-Pro-B Natriuret Pep 613 pg/mL (0-450) H 08/21/22 09:14 Total Protein 7.5 g/dL (6.6-8.7) 08/21/22 09:14 Albumin 4.0 g/dL (3.5-5.2) 08/21/22 09:14 Globulin 3.5 g/dL (1.3-4.6) 08/21/22 09:14 Discharge Plan Discharge Patient Disposition: Transfer to ED Clinical Impression: Acute subdural hematoma, Intraventricular hemorrhage, Anticoagulation excessive Condition: Stable Prescriptions: No Action albuterol sulfate 2.5 mg /3 mL (0.083 %) solution for nebulization 2.5 mg INHALATION Q4H PRN (Reason: Shortness Of Breath) finasteride 5 mg tablet 5 mg PO DAILY@1700 omega 9-tkv-gzu-fish oil [Fish Oil] 1,000 mg (120 mg-180 mg) capsule 1 cap PO BID fluoxetine 20 mg capsule 20 mg PO DAILY@07 lorazepam 1 mg tablet 0.5 mg PO TID PRN (Reason: Anxiety) multivitamin Tablet 1 tab PO DAILY@07 nitroglycerin [Nitrostat] 0.4 mg tablet, sublingual 0.4 mg SUBLINGUAL Q5M PRN (Reason: Chest Pain) omeprazole 40 mg capsule,delayed release(DR/EC) 40 mg PO DAILY@07 potassium chloride 10 mEq capsule, extended release 10 meq PO DAILY sotalol 80 mg tablet 80 mg PO BID@07,17 tamsulosin 0.4 mg capsule 0.4 mg PO DAILY@07 warfarin 2.5 mg tablet 2.5 mg PO DAILY@1700 furosemide 20 mg tablet 20 mg PO BID spironolactone 25 mg tablet 25 mg PO BID@07,17 ferrous sulfate 325 mg (65 mg iron) tablet 325 mg PO Q7D (DME) GILDA See Rx Instructions .Route .MEDSUPPLY Qty: 1 0RF Rx Instructions: As directed (DME) FAST FORM COCK UP SPLINT See Rx Instructions .Route .MEDSUPPLY Qty: 1 0RF Rx Instructions: As directed betamethasone dipropionate 0.05 % ointment 1 applic topical BID Qty: 45 2RF Rx Instructions: To elbows no more than 3wks/mo (DME) COCK UP SPLINT See Rx Instructions .Route .MEDSUPPLY Qty: 1 0RF Rx Instructions: As directed (DME) HINGED KNEE BRACE See Rx Instructions .Route .MEDSUPPLY Qty: 1 0RF Rx Instructions: As directed levothyroxine 75 mcg tablet 37.5 mcg PO DAILY hydrocodone-acetaminophen 5-325 mg Tablet 1 tab PO BID PRN (Reason: Pain) albuterol sulfate 90 mcg/actuation HFA aerosol inhaler 2 inh inhalation Q4H PRN (Reason: shortness of breath or wheezing) Qty: 8.5 2RF docusate sodium 100 mg Capsule 100 mg PO BID budesonide 0.5 mg/2 mL Suspension For Nebulization 0.5 mg INHALATION BID formoterol fumarate 20 mcg/2 mL Solution For Nebulization 2 ml INHALATION BID Referrals: Jennifer Ackerman MD [Primary Care Provider] - Sign Out Sign Out Data: Patient Sign Out occurred on 08/21/22 at 09:01. Patient's care was discussed, and care was transferred from to Gideon Camejo DO. Coding Level of Care Code ED Soil Biology Teacher for [facility] Fwd Exam Comprehensive
--- NOTE | 2022-08-21 08:38 | ECG_ITS ---
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 Measurements Intervals [place] Rate: 92 P: 0 AL: 0 QRS: -13 QRSD: 158 T: 143 QT: 411 QTc: 509 Interpretive Statements ATRIAL FIBRILLATION LEFT BUNDLE BRANCH BLOCK [120+ ms QRS DURATION, 80+ ms Q/S IN V1/V2, 85+ ms R IN I/aVL/V5/V6] Compared to ECG 03/20/2022 02:39:37 No significant changes Electronically Signed On 08-21-2022 12:54:29 FEATHER SAWYER by Althea Spring M.D. [id number]
--- NOTE | 2022-08-21 08:41 | XR_ITS ---
WS: [id number] Portable AP upright chest, 08/21/2022 Clinical Data: cp Comparison: Portable chest, 03/22/2022 Findings: No nodules, masses or effusions are seen. The heart is large. The pulmonary vascularity is not increased. No pneumonia or pneumothorax is seen. There is a 2-lead cardiac pacemaker unchanged. T here are monitor leads on the chest wall. XR/XR chest 1V portable [id number] Impression: Cardiomegaly
--- NOTE | 2022-08-21 08:51 | XR_ITS ---
WS: [id number] Left hand, 3 views, 08/21/2022 Clinical Data: fall with thumb pain Comparison: None. Findings: No fractures or dislocations are seen. The soft tissues are unremarkable. The joint spaces are normal There is a small foreign body overlying the proximal phalanx of the left thumb. XR/XR hand LT min 3V* [id number] Impression: Negative left hand.
[2022-08-21] MEDS: phytonadione (ADULT) 10 mg/mL Ampule 1 mL SUBCUT (09:17)
[2022-08-21 09:25] LABS: Basophils % 0.1 %; Eosinophils # 0.1 10^3/uL (0.0-0.8); Eosinophils % 0.9 %; Hematocrit 47.9 % (42.0-52.0); Hemoglobin 14.5 g/dL (11.7-16.6); Lymphocytes # 1.1 10^3/uL (0.8-4.8); Lymphocytes % 13.1 %; Mean Corpuscular HGB Conc 30.3 g/dL (30.0-36.0); Mean Corpuscular Hemoglobin 27.5 pg (28.0-34.0); Mean Corpuscular Volume 90.9 fl (80-94); Mean Platelet Volume 12.2 fL (7.4-10.4); Monocytes % 12.1 %; Neutrophils # 5.95 10^3/uL (1.8-7.7); Neutrophils % 73.3 %; Nucleated Red Blood Cells % 0 %; Red Blood Count 5.27 10^6/uL (4.1-5.3); Red Cell Distribution Width 13.9 % (12.1-15.1); White Blood Count 8.1 10^3/uL (4.0-10.0)
[2022-08-21 09:28] VITALS: BP 143/99; PULSE 92; RESP 14; O2SAT 96
[2022-08-21 09:42] LABS: INR 2.47 (0.8-1.2); Partial Thromboplastin Time 37.9 SECONDS (23.9-36.7)
[2022-08-21 09:49] LABS: Troponin(5th) Baseline 15 ng/L (0-15)
[2022-08-21 09:54] LABS: Alanine Aminotransferase 14 U/L (0-41); Alkaline Phosphatase 86 U/L (40-130); Anion Gap 18.2 (5-19); Aspartate Amino Transferase 15 U/L (0-40); Blood Urea Nitrogen 13 mg/dL (8-23); Calcium 9.2 mg/dL (8.5-10.5); Carbon Dioxide 30 mmol/L (22-29); Chloride 93 mmol/L (98-107); Globulin 3.5 g/dL (1.3-4.6); Glucose 131 mg/dL (65-115); NT Pro B Type Natriuretic Pept 613 pg/mL (0-450); Osmolality Calculated 286 mOsm/kg (285-295); Potassium 4.2 mmol/L (3.5-5.1); Sodium 137 mmol/L (136-145); Total Bilirubin 0.5 mg/dL (0.15-1.2); Total Protein 7.5 g/dL (6.6-8.7)
[2022-08-21 09:58] LABS: Platelet Count 229 10^3/cmm (130-400); Slide Review Slide Review Perform
[2022-08-21 10:34] VITALS: RESP 16; O2SAT 96
[2022-08-21] MEDS: morphine 4 mg/mL SDV 1 mL 2 MG IVP (10:34)
== END 2022-08-21 10:49 ==
PROVIDERS: Emergency Provider Family Medicine; PCP Family Medicine
DX: S06.5XAA Traumatic subdural hemorrhage with loss of consciousness status unknown, initial encounter (principal); W01.0XXA Fall on same level from slipping, tripping and stumbling without subsequent striking against object, initial encounter; Z79.01 Long term (current) use of anticoagulants; I48.91 Unspecified atrial fibrillation; I10 Essential (primary) hypertension
CPT/HCPCS: 36415; 70450; 71045; 72125; 73130; 80053; 83880; 84484; 85025; 85610; 85730; 93005; 96372; 96374; 99285; J2270; J3430

== ENCOUNTER 2022-08-29 16:45 | Outpatient (CLI) | payer MEDICARE, OTHER, SELFPAY ==
[2022-08-29 17:14] LABS: Basophils % 0.4 %; Eosinophils # 0.2 10^3/uL (0.0-0.8); Eosinophils % 2.1 %; Hematocrit 51.2 % (42.0-52.0); Hemoglobin 15.9 g/dL (11.7-16.6); Lymphocytes # 1.4 10^3/uL (0.8-4.8); Lymphocytes % 14.3 %; Mean Corpuscular HGB Conc 31.1 g/dL (30.0-36.0); Mean Corpuscular Hemoglobin 27.5 pg (28.0-34.0); Mean Corpuscular Volume 88.4 fl (80-94); Monocytes # 1.6 10^3/uL (0.2-0.9); Monocytes % 16.2 %; Neutrophils # 6.33 10^3/uL (1.8-7.7); Neutrophils % 65.5 %; Nucleated Red Blood Cells % 0 %; Platelet Count 257 10^3/cmm (130-400); Red Blood Count 5.79 10^6/uL (4.1-5.3); White Blood Count 9.7 10^3/uL (4.0-10.0)
[2022-08-29 19:58] LABS: Slide Review Slide Review Perform
== END 2022-08-29 16:46 | disposition home or self-care (01) ==
PROVIDERS: PCP Family Medicine; Visit Provider Nurse Practitioner Family
DX: D64.9 Anemia, unspecified (principal)
CPT/HCPCS: 85025

== ENCOUNTER → 2022-10-07 14:00 | Outpatient (BNVA) | payer MEDICARE, OTHER, SELFPAY | PROVIDERS: PCP Family Medicine; Visit Provider Internal Medicine Cardiovascular Disease | DX: S06.5XAD Traumatic subdural hemorrhage with loss of consciousness status unknown, subsequent encounter (principal); W19.XXXD Unspecified fall, subsequent encounter; I48.20 Chronic atrial fibrillation, unspecified; I73.9 Peripheral vascular disease, unspecified; Z95.0 Presence of cardiac pacemaker; E78.5 Hyperlipidemia, unspecified; I95.89 Other hypotension; I10 Essential (primary) hypertension; J44.9 Chronic obstructive pulmonary disease, unspecified; I95.1 Orthostatic hypotension; Z87.891 Personal history of nicotine dependence; Z79.01 Long term (current) use of anticoagulants | CPT/HCPCS: 99214 ==

== ENCOUNTER → 2022-10-28 08:16 | Outpatient (BNVA) | payer MEDICARE, OTHER, SELFPAY | PROVIDERS: PCP Family Medicine; Visit Provider Internal Medicine Cardiovascular Disease | DX: Z45.010 Encounter for checking and testing of cardiac pacemaker pulse generator [battery] (principal) | CPT/HCPCS: 93296 ==

== ENCOUNTER 2022-10-29 09:48 | Outpatient (CLI) | payer MEDICARE, OTHER, SELFPAY ==
--- NOTE | 2022-10-29 09:54 | CT_ITS ---
WS: [id number] CT HEAD TECHNIQUE: Noncontrast CT of the head obtained from the skullbase to the vertex. CLINICAL INFORMATION: TRAUMATIC SUBDURAL HEMORRAGE WITH LOSS OF CONSCIOUSNESS COMPARISON: None. DLP: 1090.[address] scans at [facility] use at least one of these dose optimization techniques: automated e xposure control; mA and/or kV adjustment per patient size (includes targeted exams where dose is matc hed to clinical indication); or iterative reconstruction. FINDINGS: No evidence of intracranial hemorrhage or mass effect. Ventricular system and basal cisterns are short nt. Moderate small vessel changes with moderate parenchymal volume loss. Vascular calcification. No e xtra-axial fluid collections. No evidence of mass or mass effect. Paranasal sinuses and mastoid air cells are well aerated. .Normal visualized soft tissues. Normal pos terior nasopharynx. CT/CT head wo con* [id number] IMPRESSION: 1. No evidence of intracranial hemorrhage or mass effect. 2. Moderate small vessel changes with moderate parenchymal volume loss. 3. Previously described intracranial hemorrhage has resolved. 4. No acute intracranial findings.
== END 2022-10-29 09:49 | disposition home or self-care (01) ==
LOC: RAD 09:49
PROVIDERS: PCP Family Medicine; Visit Provider Family Medicine
DX: S06.5X9A Traumatic subdural hemorrhage with loss of consciousness of unspecified duration, initial encounter (principal); X58.XXXA Exposure to other specified factors, initial encounter
CPT/HCPCS: 70450

== ENCOUNTER → 2022-11-04 12:27 | Outpatient (BNVA) | payer MEDICARE, OTHER, SELFPAY | PROVIDERS: PCP Family Medicine; Visit Provider Podiatrist Foot & Ankle Surgery | DX: I73.9 Peripheral vascular disease, unspecified (principal); L60.3 Nail dystrophy; G60.9 Hereditary and idiopathic neuropathy, unspecified | CPT/HCPCS: 11721 ==

== ENCOUNTER 2022-12-11 10:03 | Inpatient (IN) | payer MEDICARE, OTHER, SELFPAY ==
[2022-12-11] VITALS (60 sets, daily range): BP systolic 101–156; BP diastolic 70–100; PULSE 66–102; RESP 14–23; TEMP 34.8–35.8; O2SAT 92–99; BMI 32.8
--- NOTE | 2022-12-11 10:13 | XR_ITS ---
WS: [email or web address] Portable AP supine chest, 12/11/2022 Clinical Data: post code Comparison: Portable chest, 08/21/2022 Findings: The endotracheal tube extends to the level of the tracheal bifurcation. No nodules, masses or effusions are seen. There is a minimal patchy opacity in the retrocardiac region which may represe nt atelectasis. The heart is enlarged. The pulmonary vascularity is not increased. No pneumonia or pn eumothorax is seen. There is a 2-lead cardiac pacemaker unchanged. There is minimal tortuosity of the descending thoracic aorta. Monitor leads are on the chest wall. XR/XR chest 1V portable [id number] Impression: 1. Endotracheal tube extends the level of the tracheal bifurcation and needs to be retreated 4 cm. 2. Probable atelectasis in the retrocardiac region. 3. Cardiomegaly and atherosclerosis.
--- NOTE | 2022-12-11 10:13 | ED_ITS ---
HPI - CPR General: Chief Complaint: Cardiac Arrest/CPR Stated Complaint: cardiac arrest Time Seen by Provider: 12/11/22 10:13 Limitations: other (Cardiac arrest) History of Present Illness: 82-year-old gentleman multiple day history of increasing shortness of breath worse than baseline. Baseline COPD. Has tried outpatient steroids and breathing treatments with no significant improvement. Continued to worsen until symptoms began severe today. EMS found the patient to be in significant respiratory distress. Subsequently patient lost pulses and went into respiratory failure in route. I-gel placed by EMS however they lost IV access. CPR performed. 1 defibrillation for ventricular fibrillation. Upon arrival patient due for pulse check and defibrillation if indicated, defibrillated on cot and CPR resumed. History otherwise limited by cardiac arrest. Review of Systems General: Reports: ROS unobtainable due to medical condition (Cardiac arrest) [facility] ED PFSH: Medical History (Updated 12/13/22 @ 12:39 by Rigoberto Gonzalez MD) A-fib Anxiety disorder Benign essential hypertension with target blood pressure below 140/90 Chest pain Chronic atrial fibrillation Chronic episodic atrial fibrillation COPD (chronic obstructive pulmonary disease) Dyslipidemia (high LDL; low HDL) Leg swelling Mixed hyperlipidemia Peripheral neuropathy PVD (peripheral vascular disease) Retinal tear of left eye SOB (shortness of breath) Subdural hematoma, post-traumatic Surgical History History of permanent cardiac pacemaker placement Family History Brother CAD (coronary artery disease) Mother Cancer Father Cancer Sister Cancer Family/Other Cancer Denies family history of Diabetes Clotting disorder Dementia Chronic kidney disease (CKD) Suicide Anesthesia complication Bleeding disorder Lung disease Stroke Social History Smoking and tobacco status: former smoker Alcohol intake: never Substance/Drug Use: never Physical Exam Const: EXAM LIMITATIONS: altered mental status and other limitations GENERAL APPEARANCE: ill appearing Resp: OTHER: Cardiac arrest, respiratory arrest Cardio: OTHER: Cardiac arrest, respiratory arrest Neuro: OTHER: Unresponsive Procedures Central Line Placement Right IJ: Time Out Performed: Yes Patient Placed on Monitor/Pulse Ox: Yes Prep: mask, gown and gloves Central Line Prep: Povidone-Iodine 1%, Chlorhexidine scrub and sterile drapes applied Ultrasound Used for Placement: Yes Central Line Lumen Inserted: triple Post Procedure: sutured in place, good blood return, all ports aspirated, flushed, capped and sterile dressing applied Post Procedure X-Ray: tip of catheter in good position and no pneumothorax seen Patient Tolerated Procedure: well Complications: none Intubation Time out performed: No (Performed emergently during cardiac arrest) Laryngoscope: fiber optic video scope ET Tube Size: 8 ET Tube Uncuffed: No Tube Secured Depth (cm): 24 Tube Secured Location: teeth Tube Placement Confirmation: visualized tube passing through cords, equal breath sounds bilaterally, no breath sounds over epigastrium and confirmation by capnometry Intubation Complications: none Additional Comments: Subsequently retracted 2 cm after review of bedside x-ray Course Vital Signs: Vital signs: Vital Signs Temperature 98.7 F 12/13/22 09:00 Pulse Rate 101 H 12/13/22 12:00 Respiratory Rate 21 H 12/13/22 11:36 Blood Pressure 146/79 12/13/22 12:00 Pulse Oximetry 91 12/13/22 12:00 Oxygen Delivery Me thod Mechanical Ventil ation 12/13/22 11:34 Fraction of Inspir ed Oxygen 40 12/13/22 12:00 MDM - Cardiac Arrest/CPR Medical Decision Making 82-year-old gentleman presenting in cardiac arrest suspected to be secondary to a respiratory arrest. Patient defibrillated on EMS cot as noted above and high-quality CPR resumed. See nursing documentation for code flow sheet. Subsequent rhythms PEA. Multiple doses of epi, bicarb, calcium. Subsequently achieved ROSC which she lost shortly for a short period of time and then returned ROSC. No purposeful movements to commands. Patient placed on epi drip, propofol, fentanyl. Intubated during code and subsequently central line placed. X-rays reviewed at bedside. Initial ETT tube deep and retracted 2 cm. Dewey bsequent placement satisfactory with satisfactory appearing placement of lines and tubes. Updated family. The results of ED evaluation were discussed with the family including plan for admission due to requirement for level of care not available if discharged to prevent significant worsening/deterioration. Family agreeable with plan. Discussed with hospitalist service who was agreeable to admit patient. Lab Data 12/13/22 03:14 12/13/22 03:[address] 12/11/22 11:29 IMPRESSION: 1. No evidence of intracranial hemorrhage or mass effect. 2. Moderate small vessel changes with moderate parenchymal volume loss. 3. Intracranial vascular calcification. 4. No acute intracranial findings. Chest X-Ray 12/12/22 07:00 Impression: Partial clearing of patchy opacity in retrocardiac region of left lower lobe. Laboratory Results WBC 13.3 10^3/uL (4.0-10.0) H 12/11/22 10:25 RBC 5.19 10^6/uL (4.1-5.3) 12/11/22 10:25 Hgb 14.3 g/dL (11.7-16.6) 12/11/22 10:25 Hct 49.4 % (42.0-52.0) 12/11/22 10:25 MCV 95.2 fl (80-94) H 12/11/22 10:25 MCH 27.6 pg (28.0-34.0) L 12/11/22 10:25 MCHC 28.9 g/dL (30.0-36.0) L 12/11/22 10:25 RDW 14.6 % (12.1-15.1) 12/11/22 10:25 Plt Count 38 10^3/cmm (130-400) L 12/11/22 10:25 MPV TNP 12/11/22 10:25 Neut % (Auto) 57.2 % 12/11/22 10:25 Lymph % (Auto) 35.1 % 12/11/22 10:25 [place] % (Auto) 5.0 % 12/11/22 10:25 Eos % (Auto) 0.2 % 12/11/22 10:25 Baso % (Auto) 0.4 % 12/11/22 10:25 Neut # (Auto) 7.63 10^3/uL (1.8-7.7) 12/11/22 10:25 Lymph # (Auto) 4.7 10^3/uL (0.8-4.8) 12/11/22 10:25 Hudson # (Auto) 0.7 10^3/uL (0.2-0.9) 12/11/22 10:25 Eos # (Auto) 0.0 10^3/uL (0.0-0.8) 12/11/22 10:25 Baso # (Auto) 0.1 10^3/uL (0.0-0.1) 12/11/22 10:25 Nucleated RBC % (auto) 0 % 12/11/22 10:25 Nucleated RBCs # 0.0 /100WBC 12/11/22 10:25 PT 18.30 SECONDS (12.1-14.9) H 12/11/22 11:45 INR 1.46 (0.8-1.2) H 12/11/22 11:45 APTT 24.7 SECONDS (23.9-36.7) 12/11/22 11:45 Specimen Type Arterial 12/11/22 11:39 Sample Site Radial, right 12/11/22 11:39 ABG pH 7.28 (7.35-7.45) L 12/11/22 11:39 ABG pCO2 63.7 mmHg (35-45) H* 12/11/22 11:39 ABG pO2 107.0 mmHg (80.0-100.0) H 12/11/22 11:39 ABG HCO3 29.8 mmol/L (22-26) H 12/11/22 11:39 ABG Base Excess 1.0 mmol/L (-2.0-2.0) 12/11/22 11:39 Cole Test Pos 12/11/22 11:39 Hematocrit 48.8 % (42-52) 12/11/22 11:39 Hgb O2 Saturation 95.3 % (95-100) 12/11/22 10:18 Carboxyhemoglobin 1.0 %THgb (0.4-20.1) 12/11/22 10:18 Methemoglobin 0.4 % (0.4-1.5) 12/11/22 10:18 Total Hemoglobin 15.3 g/dL (14-18) 12/11/22 10:18 Respiration Rate 14.0 % 12/11/22 11:39 O2 Delivery Device Vent 12/11/22 11:39 FiO2 100.0 % 12/11/22 11:39 Tidal Volume 0.50 12/11/22 11:39 PEEP 8.0 cmH20 12/11/22 11:39 Projector Booth Operator ID Amh 12/11/22 11:39 Sodium 137 mmol/L (136-145) 12/11/22 10:25 Potassium 5.0 mmol/L (3.5-5.1) 12/11/22 10:25 Chloride 97 mmol/L (98-107) L 12/11/22 10:25 Carbon Dioxide 26 mmol/L (22-29) 12/11/22 10:25 Anion Gap 19.0 (5-19) 12/11/22 10:25 BUN 22 mg/dL (8-23) 12/11/22 10:25 Creatinine 0.9 mg/dL (0.7-1.2) 12/11/22 10:25 GFR Calculation Not Reportable 12/11/22 10:25 Glucose 277 mg/dL (65-115) H 12/11/22 10:25 POC Glucose 190 mg/dL (70-110) H 12/11/22 10:12 Calculated Osmolality 297 mOsm/kg (285-295) H 12/11/22 10:25 Calcium 9.9 mg/dL (8.5-10.5) 12/11/22 10:25 Magnesium 2.3 mg/dL (1.7-2.3) 12/11/22 10:25 Total Bilirubin 0.2 mg/dL (0.15-1.2) 12/11/22 10:25 AST 125 U/L (0-40) H 12/11/22 10:25 ALT 118 U/L (0-41) H 12/11/22 10:25 Alkaline Phosphatase 91 U/L (40-130) 12/11/22 10:25 Troponin T Baseline 12 ng/L (0-15) 12/11/22 10:28 Troponin T 120 Minute 57.75 ng/L (0-15) H 12/11/22 12:00 Delta Troponin T 45.75 ABS# (0-10) H* 12/11/22 12:00 NT-Pro-B Natriuret Pep 740 pg/mL (0-450) H 12/11/22 10:25 Total Protein 6.7 g/dL (6.6-8.7) 12/11/22 10:25 Albumin 3.4 g/dL (3.5-5.2) L 12/11/22 10:25 Globulin 3.3 g/dL (1.3-4.6) 12/11/22 10:25 TSH 4.04 uIU/mL (0.27-4.20) 12/11/22 12:15 Urine Color Yellow (Yellow) 12/11/22 10:36 Urine Appearance Clear (CLEAR) 12/11/22 10:36 Urine pH 5 (5-7) 12/11/22 10:36 Ur Specific [place] 1.020 (1.005-1.030) 12/11/22 10:36 Urine Protein Neg (Negative) 12/11/22 10:36 Urine Glucose (UA) Norm (Normal) 12/11/22 10:36 Urine Ketones Negative (Negative) 12/11/22 10:36 Urine Blood Neg (Negative) 12/11/22 10:36 Urine Nitrate Negative (Negative) 12/11/22 10:36 Urine Bilirubin Neg (Negative) 12/11/22 10:36 Urine Urobilinogen Norm mg/dL (Negative) 12/11/22 10:36 Ur Leukocyte Esterase Negative (Negative) 12/11/22 10:36 Critical Care Time Critical Care Time: Critical Care Time: Yes Total Critical Care Time: 55 Attestation: Due to a high probability of clinically significant, possibly life threatening deterioration, the patient required my highest level of attention and preparedness to intervene emergently and I personally spent this critical care time directly and personally managing the patient. This critical care time included obtaining a history; examining the patient; pulse oximetry; ordering and review of laboratory and imaging studies; arranging urgent treatment with development of a management plan; evaluation of patient's response to treatment; frequent reassessment; and, discussions with other providers as applicable. It was exclusive of separately billable procedures. Primary system involved is cardiopulmonary Discharge Plan Discharge Patient Disposition: Admitted As Inpatient Admit Provider: Robi Ackerman Clinical Impression: Cardiac arrest, Acute respiratory failure Condition: Stable Coding Level of Care Code ED Waste Disposal Attendant for Carroll Jang
--- NOTE | 2022-12-11 10:14 | ECG_ITS ---
[facility] Test Date: 2022-12-11 Pat Name: Marcial Colindres Department: Room: [facility] Gender: Male Senior Product Manager: : [id number] Requested By: Suhail Camarena Order Number: [id number] Shen MD: Althea Spring M.D. Measurements Intervals Ensign Rate: 110 P: 0 TX: 0 QRS: -32 QRSD: 170 T: 120 QT: 343 QTc: 465 Interpretive Statements ATRIAL FIBRILLATION WITH DEMAND VENTRICULAR PACING LEFT AXIS DEVIATION [QRS AXIS < -30] LEFT BUNDLE BRANCH BLOCK [120+ ms QRS DURATION, 80+ ms Q/S IN V1/V2, 85+ ms R IN I/aVL/V5/V6] ST DEPRESSION, CONSIDER SUBENDOCARDIAL INJURY [0.1+ mV ST DEPRESSION] CRITICAL TEST RESULT Compared to ECG 08/21/2022 08:51:44 Left-axis deviation now present ST (T wave) deviation now present Atrial fibrillation no longer present Electronically Signed On 12-12-2022 9:16:56 CDT by Althea Spring M.D. [email or web address] [place]
[2022-12-11 10:29] LABS: ABG PH Result 7.23 (7.35-7.45); Arterial Blood Gas Hematocrit 46.9 % (42-52); Blood Gas Allen Test Pos; Blood Gas Operator Identificat AMH; Blood Gas Sample Site Radial, right; Blood Gas Sample Type Arterial; HCO3 ABG 31.2 mmol/L (22-26); HGB O2 Sat 95.3 % (95-100); Methemoglobin 0.4 % (0.4-1.5); Oxygen Device AMBU; Total Hemoglobin 15.3 g/dL (14-18)
[2022-12-11 10:30] LABS: ABG PCO2 74.8 mmHg (35-45)
[2022-12-11] MEDS: fentaNYL 50 mcg/mL INJ 2mL IVP (10:35)
[2022-12-11] MEDS: propofol 1,000 MG/100 ML INJ 2.86 MG IV (10:37)
[2022-12-11] MEDS: EPINEPHrine 2.5 MG in sodium chloride 0.9% 250 ML 6.06 MG IV (10:46)
--- NOTE | 2022-12-11 10:46 | PC.NURSE ---
PATIENT PRESENTS IN CARDIAC ARREST. CPR CONTINUED FROM [facility]. ONE SHOCKED DELIVERED BY EMS CREW AT TIME OF ARRIVAL. 1ST ROUND CPR FOLLOWS: 1002 SHOCK DELIVERED, PEA, CPR CONTINUED 1004 PULSE CHECK, PEA, CPR CONTINUED 1006 EPI ADMIN, PULSE CHECK, PEA, CPR CONTINUED 1007 BICARB ADMIN 1008 INTUBATION COMPLETE, PULSE CHECK, PEA, CPR CONTINUED, EPI ADMIN 1010 PULSE CHECK, PEA, CPR CONTINUED, CALCIUM ADMIN 1012 PULSE CHECK, PULSE LOCATED, CPR STOPPED 18 G IV IN LEFT HAND 15 G (YELLOW) IO IN RIGHT TIBIA.
[2022-12-11 10:48] LABS: Glucose Point of Care 190 mg/dL (70-110)
[2022-12-11 10:55] LABS: Charge for UA Resulting for Rev
[2022-12-11 11:08] LABS: Basophils # 0.1 10^3/uL (0.0-0.1); Basophils % 0.4 %; Eosinophils % 0.2 %; Hematocrit 49.4 % (42.0-52.0); Hemoglobin 14.3 g/dL (11.7-16.6); Lymphocytes # 4.7 10^3/uL (0.8-4.8); Lymphocytes % 35.1 %; Mean Corpuscular HGB Conc 28.9 g/dL (30.0-36.0); Mean Corpuscular Hemoglobin 27.6 pg (28.0-34.0); Mean Corpuscular Volume 95.2 fl (80-94); Monocytes # 0.7 10^3/uL (0.2-0.9); Neutrophils # 7.63 10^3/uL (1.8-7.7); Neutrophils % 57.2 %; Nucleated Red Blood Cells % 0 %; Platelet Count 38 10^3/cmm (130-400); Red Blood Count 5.19 10^6/uL (4.1-5.3); Red Cell Distribution Width 14.6 % (12.1-15.1); White Blood Count 13.3 10^3/uL (4.0-10.0)
[2022-12-11 11:11] LABS: Add Urine Microscopic? NO; Bilirubin Urine Neg (Negative); Blood Urine Neg (Negative); Glucose Urine UA Norm (Normal); Ketones Urine Negative (Negative); Leukocyte Esterase Urine Negative (Negative); Nitrate Urine Negative (Negative); Protein Urine Neg (Negative); Urine Appearance Clear (CLEAR); Urine Color Yellow (Yellow); Urobilinogen Urine Norm (Negative); pH Urine 5 (5-7)
--- NOTE | 2022-12-11 11:11 | XR_ITS ---
WS: [id number] Portable AP upright chest, 12/11/2022, 1118 hours Clinical Data: CVC and OG Comparison: Portable chest, 12/11/2022, 1020 hours Findings: The endotracheal tube has been retreated. It ends in the mid trachea just inferior to the c lavicles and superior to the tracheal bifurcation. The remainder of the chest shows no change. XR/XR chest 1V portable [id number] Impression: Endotracheal tube is in mid trachea, no longer ends at the tracheal bifurcation .
[2022-12-11 11:14] LABS: Troponin(5th) Baseline 12 ng/L (0-15)
[2022-12-11 11:24] LABS: Alanine Aminotransferase 118 U/L (0-41); Albumin Level 3.4 g/dL (3.5-5.2); Alkaline Phosphatase 91 U/L (40-130); Blood Urea Nitrogen 22 mg/dL (8-23); Calcium 9.9 mg/dL (8.5-10.5); Carbon Dioxide 26 mmol/L (22-29); Chloride 97 mmol/L (98-107); Globulin 3.3 g/dL (1.3-4.6); Glucose 277 mg/dL (65-115); Magnesium 2.3 mg/dL (1.7-2.3); NT Pro B Type Natriuretic Pept 740 pg/mL (0-450); Osmolality Calculated 297 mOsm/kg (285-295); Sodium 137 mmol/L (136-145); Total Bilirubin 0.2 mg/dL (0.15-1.2); Total Protein 6.7 g/dL (6.6-8.7)
[2022-12-11 11:28] LABS: Aspartate Amino Transferase 125 U/L (0-40)
--- NOTE | 2022-12-11 11:29 | CT_ITS ---
WS: [id number] CT HEAD TECHNIQUE: Noncontrast CT of the head obtained from the skullbase to the vertex. CLINICAL INFORMATION: post code COMPARISON: CT head October 29, 2022 DLP: 1144.[address] scans at [facility] use at least one of these dose optimization techniques: automated e xposure control; mA and/or kV adjustment per patient size (includes targeted exams where dose is matc hed to clinical indication); or iterative reconstruction. FINDINGS: No evidence of intracranial hemorrhage or mass effect. Ventricular system and basal cisterns are short nt. Moderate small vessel changes with moderate parenchymal volume loss. No extra-axial fluid collect ions. No evidence of mass or mass effect. Intracranial vascular calcification. Mild mucosal thickening in the ethmoid air cells and LEFT frontal sinus with scattered fluid. CT/CT head wo con* [id number] IMPRESSION: 1. No evidence of intracranial hemorrhage or mass effect. 2. Moderate small vessel changes with moderate parenchymal volume loss. 3. Intracranial vascular calcification. 4. No acute intracranial findings.
[2022-12-11 11:50] LABS: ABG PH Result 7.28 (7.35-7.45); Arterial Blood Gas Hematocrit 48.8 % (42-52); Blood Gas Allen Test Pos; Blood Gas Sample Site Radial, right; Blood Gas Sample Type Arterial; HCO3 ABG 29.8 mmol/L (22-26)
[2022-12-11 11:51] LABS: Blood Gas Operator Identificat AMH; Oxygen Device VENT
[2022-12-11 11:53] LABS: ABG PCO2 63.7 mmHg (35-45)
[2022-12-11 11:55] LABS: Slide Review Slide Review Perform
--- NOTE | 2022-12-11 12:07 | P.HP_ITS ---
Providers/Chief Complaint Admitting Physician: Robi Ackerman MD Primary Care Provider: Jennifer Ackerman MD Chief Complaint: cardiac arrest History of Present Illness Marcial Colindres is a 82 year old male presenting via ambulance from home. Initial complaint was shortness of breath occurring for the last week or so, slowly worsening. He had intermittent chest discomfort, which is not unusual. He been coughing up green to yellow sputum, no blood. He had intermittent pa lpitations, which is also not unusual considering his difficult to control paroxysmal atrial fibrillation. According to his , he got a prescription for several days of doxycycline from urology recently, but only took 2 doses. He also had some steroids for COPD exacerbation. There have been no recent ill contacts. His most recent hospitalization was in August, for an intracranial hemorrhage. He had since been placed back on Coumadin. There have been no recent falls. After the ambulance arrived, at some point CPR ensued. From my understanding he got at least 1-2 doses of epinephrine, and 1 shock in the ambulance. After arriving at the emergency department he got 6 doses of epi, bicarb x2, calcium, and at least 1 shock initially for concerns of ventricular fibrillation. It appears he got at least 16 minutes of CPR, perhaps more and achieved ROSC with asystole being the predominant later rhythm. When I am evaluating him his is at bedside giving most of the history. He is sedated, and does not respond to me. I have been informed that he has a gag reflex, when the NG was placed and has been breathing over the vent occasionally. Besides the above documented the emergency department has initiated norepinephrine, epinephrine, fentanyl, propofol. Review of Systems General: Reports: ROS unobtainable due to endotracheal tube Medications/Allergies Home Medications Medication Instructions Recorded Confirmed Last Taken Type albuterol sulfate 2.5 mg/3 mL 2.5 mg inhalation Q4H PRN 08/10/19 12/11/22 03/19/22 History (0.083 %) solution for nebulization Shortness Of Breath finasteride 5 mg tablet 5 mg PO DAILY@1700 08/10/19 12/11/22 12/10/22 History fluoxetine 20 mg capsule 20 mg PO DAILY@07 08/10/19 12/11/22 12/11/22 History lorazepam 1 mg tablet 0.5 mg PO TID PRN Anxiety 0112/11/22 03/19/22 History multivitamin 1 tab PO DAILY@07 08/10/19 12/11/22 12/11/22 History nitroglycerin 0.4 mg sublingual 0.4 mg sublingual Q5M PRN Chest 08/10/19 12/11/22 Unknown History tablet (Nitrostat) Pain omega 6-uts-vrc-fish oil 1,000 mg 1 cap PO BID 08/10/19 12/11/22 12/11/22 History (120 mg-180 mg) capsule (Fish Oil) omeprazole 40 mg capsule,delayed 40 mg PO DAILY@08/10/19 12/11/22 12/11/22 History release potassium chloride 10 mEq 20 meq PO DAILY 08/10/19 12/11/22 12/11/22 History capsule,extended release sotalol 80 mg tablet 80 mg PO BID@,08/10/19 12/11/22 12/11/22 History tamsulosin 0.4 mg capsule 0.4 mg PO DAILY@08/10/19 12/11/22 12/11/22 History furosemide 20 mg tablet 20 mg PO BID 01/04/20 12/11/22 12/11/22 History spironolactone 25 mg tablet 25 mg PO BID@01/04/20 12/11/22 12/11/22 History ferrous sulfate 325 mg (65 mg 325 mg PO Q7D 07/30/20 12/11/22 03/19/22 History iron) tablet hydrocodone 5 mg-acetaminophen 325 1 tab PO BID PRN Pain 10/09/20 12/11/22 Unknown History mg tablet GILDA #1 ea 10/17/20 12/11/22 Unknown Rx FAST FORM COCK UP SPLINT #1 ea 10/17/20 12/11/22 Unknown Rx COCK UP SPLINT #1 ea 12/03/20 12/11/22 Unknown Rx HINGED KNEE BRACE #1 ea 12/03/20 12/11/22 Unknown Rx levothyroxine 75 mcg tablet 37.5 mcg PO DAILY 08/05/21 12/11/22 12/11/22 History albuterol sulfate 90 mcg/actuation 2 inh inhalation Q4H PRN shortness 08/19/22 05/25/23 08/31/22 Rx aerosol inhaler of breath or wheezing #8.5 grams budesonide 0.5 mg/2 mL suspension 0.5 mg inhalation BID 08/21/22 12/11/22 12/11/22 History for nebulization formoterol fumarate 20 mcg/2 mL 2 ml inhalation BID 08/21/22 12/11/22 Unknown History solution for nebulization midodrine 5 mg tablet 5 mg PO BID 10/07/22 12/11/22 12/11/22 History warfarin 2.5 mg tablet See Rx Instructions .Route .COMPLEX 12/11/22 12/11/22 12/10/22 History Allergies Allergy/AdvReac Type Severity Reaction Status Date / Time Wkgmjfe-XQV-FzN Reductase Allergy Mild ALGY-Rash Verified 11/04/22 12:32 Inhibitor [Ojcmnyr-Upz-Rbz Reductase Inhibitor] codeine Allergy Unknown Unknown Verified 11/04/22 12:32 PFSH Acute PFSH: Medical History (Updated 12/11/22 @ 12:53 by Robi Ackerman MD) A-fib Anxiety disorder Benign essential hypertension with target blood pressure below 140/90 Chest pain Chronic atrial fibrillation Chronic episodic atrial fibrillation COPD (chronic obstructive pulmonary disease) Dyslipidemia (high LDL; low HDL) Leg swelling Mixed hyperlipidemia Peripheral neuropathy PVD (peripheral vascular disease) Retinal tear of left eye SOB (shortness of breath) Subdural hematoma, post-traumatic Surgical History History of permanent cardiac pacemaker placement Family History Brother CAD (coronary artery disease) Mother Cancer Father Cancer Sister Cancer Family/Other Cancer Denies family history of Diabetes Clotting disorder Dementia Chronic kidney disease (CKD) Suicide Anesthesia complication Bleeding disorder Lung disease Stroke Social History Smoking and tobacco status: former smoker Alcohol intake: never Substance/Drug Use: never Vitals/I&O/Wt Last Vital Signs Resp 20 H 12/11/22 10:31 FiO2 100 12/11/22 10:31 12/10/22 12/11/22 12/11/22 22:59 06:59 14:59 Intake Total 4.907 / 4.907 Balance 4.907 / 4.907 Weight last 48 hrs Weight 95.254 kg Physical Exam Narrative: General exam is a male, sedated, on the ventilator. HEENT: Right pupil round. Left irregular. indicates this is chronic. Oropharynx with endotracheal tube and orogastric tube Neck with central line, right IJ Cardiovascular irregular, irregular. No obvious murmur Lungs crackles bibasilar Abdomen is soft. Bowel sounds are noted. No obvious organomegaly exam demonstrates Fowler Extremities trace edema bilaterally. No cyanosis or clubbing Urinary Catheter Management: Fowler: Cath Placed During This Visit: yes Urinary Catheter Date of Insertion: 12/11/22 Urinary Catheter Time of Insertion: 09:30 Data 12/11/22 10:25 12/11/22 10:25 Other Labs: Note that his initial platelet count was 38,000 INR 1.46 Initial ABG 7.23, 75, 87 on ventilator. Repeat 7.28, 64, 107 with a rate of 14, tidal volume of 500, PEEP of 8 and FiO2 of 100%. Rate is being increased Magnesium, calcium normal. LFTs with AST of 125 and ALT of 118 BNP elevated at 740 Albumin 3.4 Urinalysis negative Chest x-ray per my read demonstrates cardiomegaly, 2-lead pacemaker, left lower lobe atelectasis or infiltrate CT noncontrast per my read demonstrates no obvious bleed Blood cultures were obtained EKG initial per my evaluation demonstrates wide-complex rhythm, History difficult currently as patient received Haldol recently, and recent tracheostomy. I did visit with his daughter for further history. With occasional wide-complex premature beats. Repeat EKG demonstrates atrial fibrillation, occasional paced beat, borderline left axis deviation, intraventricular conduction delay with QRS complex being approximately [address] elevation. Nonspecific ST-T wave changes. Micro: Microbiology 12/11/22 10:25 Blood Culture - Preliminary Blood SPECIMEN COLLECTED 12/11/22 10:35 Blood Culture - Preliminary Blood SPECIMEN COLLECTED A&P Assessment and plan (1) Cardiac arrest: Patient suffered a cardiac arrest, after ambulance was called. He had greater than 16 minutes of CPR. He got epinephrine multiple times, bicarb, calcium. He received at least 2 shocks for ventricular fibrillation. He eventually achieved ROSC, after a prolonged period of PEA. Continue to stabilize patient Reassess fluid status after arrival to the ICU Not good candidate for targeted temperature management considering difficult to control arrhythmia in the past, rather severe thrombocytopenia currently. He also has a recent history of intracranial hemorrhage approximately 3 months ago. (2) Arrhythmia: Patient with ventricular fibrillation, receiving at least 2 shocks. He has known history of paroxysmal atrial fibrillation, and was on sotalol at home. Secondary to the ventricular arrhythmia, add amiodarone currently. Magnesium and electrolytes were checked and normal. TSH will be checked. Check echocardiogram BNP slightly high but overall patient does not appear to be fluid overloaded. (3) Acute encephalopathy: From my understanding patient was having some confusion just prior to ambulance arrival but was able to talk. This may have been secondary to hypoxia. At home indicates they had i ncreased his oxygen to 4 L from his normal 3. He also has a history of hypercarbia. His mental capacity is unknown currently, secondary to the prolonged code. I discussed with the that it is entirely possible he could have hypoxic injury. Continue to follow closely, wean sedation as tolerated (4) Acute respiratory failure: Patient presented initially with acute hypoxic and hypercarbic respiratory failure He was being treated for COPD exacerbation. He had recently received doxycycline but only 2 doses as reports this upset his stomach. Cannot completely rule out a pneumonia, as infiltrate or atelectasis is present left lower lobe. Initiate vancomycin and Zosyn Sputum culture MRSA PCR Increased rate on ventilator. Continue tidal volume and PEEP at the same. Wean oxygen as tolerated. Repeat ABG later today, tomorrow morning and chest x-ray tomorrow. Tubes were reviewed on chest x-ray and in adequate position on second x-ray. Initiate dexamethasone, and continue daily DuoNeb every 4 hours Budesonide twice daily (5) Hypotension: Pressors were initiated in the emergency department Wean these as tolerated Qualifiers: Hypotension type: other hypotension type Qualified Code(s): I95.89 - Other hypotension (6) COPD with acute exacerbation: Steroids, pulmonary toilet as above (7) Thrombocytopenia: Significant thrombocytopenia, on arrival. This is presumed secondary to prolonged code. Not currently a anticoagulation candidate. He was on Coumadin prior, INR not therapeutic currently. Repeat platelets around 6 PM Check INR tomorrow SCDs for DVT prophylaxis Plan Multiple other medical problems as outlined in past medical history Full code currently SCDs for DVT prophylaxis, pharmacologic anticoagulation contraindicated currently Attestations Medical Necessity Statement*: Will need greater than 2 midnight stay for evaluation and treatment of cardiac arrest, COPD exacerbation, respiratory failure Critical Care Time: The high probability of a clinically significant, sudden or life threatening deterioration of the patient's [cardiac, pulmonary, neurologic] system(s) required my full and direct attention, intervention and personal management. The critical care time is as shown. This time is in addition to time spent performing any reported procedures but includes the following: [x] Data and vital sign review and interpretation [x] Patient assessment, examination and intervention [x] Documentation [x] Medication orders and management Critical Care Time (min): 93 Coding Level of Care Code Critical Care >/= 30 minutes Critical care time (in minutes): 93 The high probability of a clinically significant, sudden or life threatening deterioration, as referenced in this documentation, required my full and direct attention, intervention and personal management. The critical care time shown is in addition to time spent performing any reported separately billable procedures and includes the following: [x] Data and vital sign review and interpretation [x ] Patient assessment, examination and intervention [x] Medication orders and management [x] Patient/Family updates as able [x] Care Coordination and Documentation. Diagnoses Cardiac arrest I46.9 Arrhythmia I49.9 Acute encephalopathy G93.40 Acute respiratory failure J96.00 Hypotension I95.89 Hypotension type: other hypotension type COPD with acute exacerbation J44.1 Thrombocytopenia D69.6 Time Spent (min) 93
[2022-12-11 12:08] LABS: INR 1.46 (0.8-1.2); Partial Thromboplastin Time 24.7 SECONDS (23.9-36.7)
--- NOTE | 2022-12-11 12:23 | ECG_ITS ---
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 Measurements Intervals [place] Rate: 97 P: 0 MD: 0 QRS: -8 QRSD: 158 T: 69 QT: 437 QTc: 556 Interpretive Statements ATRIAL FIBRILLATION INTRAVENTRICULAR CONDUCTION DELAY [130+ ms QRS DURATION] Compared to ECG 08/21/2022 08:51:44 Intraventricular conduction delay now present Left bundle-branch block no longer present Electronically Signed On 12-11-2022 21:26:15 CDT by Althea Spring M.D. [id number]
--- NOTE | 2022-12-11 12:37 | PC.PHAR ---
PHARMACY TO DOSE CONSULT - VANCOMYCIN AND ZOSYN With the patient's current vital and lab results, his vancomycin dosage was calculated at 1250mg every 12 hours with a predicted peak of 34.3 mcg/ml and a trough of 17.15 mcg/ml. Pharmacy will place an order for a trough to be drawn before the 4th dose and make adjustments as necessary. For the patient's Zosyn, with current renal function the patient is indicated for 3.375gm every 8 hours with the extended-infusion time over 4 hours. Pharmacy will continue to monitor this patient's renal function and make adjustments as necessary. Thanks, Óscar So, Pharm.D
[2022-12-11 12:45] LABS: Troponin 5 2HR 57.75 ng/L (0-15)
[2022-12-11] MEDS: vancomycin 1,250 MG/250 ML PIGGYBACK 250 MG IV (12:46)
[2022-12-11] MEDS: dexamethasone 10 mg/mL INJ IVP (12:46)
[2022-12-11 13:01] LABS: Troponin 5 2HR Delta 45.75 ABS# (0-10)
[2022-12-11 13:07] LABS: Thyroid Stimulating Hormone 4.04 uIU/mL (0.27-4.20)
--- NOTE | 2022-12-11 13:11 | USCV_ITS ---
Marcial Colindres Age: 82 Gender: M : 1940 Exam Date: 12/11/2022 13:44 Ordering Phys: Robi Ackerman MD Technologist: Jose King [place] [facility] [place]: cardiac [place] BP: 132 / 88 HR: 70 Rhythm: Sinus Technical Quality: Adequate MEASUREMENTS (Male / Female) Normal Values 2D ECHO LV Diastolic Diameter PLAX 2.8 cm 4.2 - 5.9 / 3.9 - 5.3 cm LV Systolic Diameter PLAX 2.3 cm IVS Diastolic Thickness 1.5 cm 0.6 - 1.0 / 0.6 - 0.9 cm IVS Systolic Thickness 1.5 cm LVPW Diastolic Thickness 1.6 cm 0.6 - 1.0 / 0.6 - 0.9 cm LVPW Systolic Thickness 1.7 cm LVOT Diameter 2.0 cm LV Ejection Fraction 2D Teich 34.4 % LV Ejection Fraction MOD 2C 39.7 % LV Ejection Fraction 2C AL 39.8 % LA Diameter 4.6 cm M-MODE Aortic Annulus Diameter 3.1 cm LA Ao Ratio MM 1.6 MV E Point Septal Separation 0.9 cm DOPPLER AV Peak Velocity 199.0 cm/s LVOT Peak Velocity 72.0 cm/s AV Area Cont Eq vti 0.9 cm squared AV Area Cont Eq pk 1.1 cm squared MV Area PHT 3.7 cm squared Mitral E to A Ratio 2.3 MV E' Velocity 30.5 cm/s Mitral E to MV E' Ratio 19.4 Mitral E to LV E' Lateral Ratio 19.4 Mitral E to LV E' Septal Ratio 19.4 TR Peak Velocity 60.0 cm/s TR Peak Gradient 1.4 mmHg TV Peak E Velocity 70.0 cm/s Right Atrial Pressure 3.0 mmHg Pulmonary Artery Systolic Pressu 4.4 mmHg FINDINGS Left Ventricle Normal left ventricular size. Mildly decreased left ventricular systolic function. Left ventricular ejection fraction is estimated at 45-50 %. Mild global left ventricular hypokinesis. Abnormal septal motion consistent with conduction abnormality. Right Ventricle Normal right ventricular size and systolic function. Right Atrium Mildly increased right atrial size. Left Atrium Mildly increased left atrial size. Mitral Valve Mild mitral annular calcification. Thickened mitral valve. No mitral valve stenosis. Trace mitral valve regurgitation. Aortic Valve Aortic valve not well visualized. No aortic valve stenosis. No aortic valve regurgitation. Tricuspid Valve Structurally normal tricuspid valve. Trace tricuspid valve regurgitation. Pulmonic Valve Pulmonic valve not well visualized. Pericardium No pericardial effusion. Aorta Normal sized aortic root. IVC Inferior vena cava not visualized. CONCLUSIONS 1. Normal left ventricular size. Mildly decreased left ventricular systolic function. Left ventricular ejection fraction is estimated at 45-50 %. Mild global left ventricular hypokinesis. 2. No prior similar studies to compare. Althea Spring MD (Electronically Signed) Final Date: 11 Dec 2022 21:21 S
--- NOTE | 2022-12-11 14:11 | PC.NURSE ---
Patients hearing aids and watch was given to .
--- NOTE | 2022-12-11 14:12 | PC.NURSE ---
Took Zosyn to ICU, given to nurse, did not start it.
--- NOTE | 2022-12-11 14:12 | PC.NURSE ---
See scanned code sheet for all times of meds during code.
--- NOTE | 2022-12-11 14:14 | XR_ITS ---
WS: [id number] Portable AP supine chest, 12/11/2022, 1326 hours Clinical Data: dim lung Comparison: Portable chest, 12/11/2022, 1118 hours Findings: The endotracheal tube, nasogastric tube, right internal jugular venous catheter, pacemaker wires and monitor leads remain in the same position. There is a opacity behind the heart which could represent atelectasis. There is minimal atelectasis over the surface the right diaphragm. No nodules or masses are seen. The pulmonary vascularity is not remarkable. The permanent pacemaker remains in t he same position. XR/XR chest 1V portable [id number] Impression: 1. Retrocardiac density which could represent atelectasis with a small left eff usion. 2. No change in position of multiple tubes. 3. Atherosclerosis and cardiac pacemaker.
[2022-12-11] MEDS: amiodarone 50 mg/mL SDV 3 mL 150 MG IVP (14:18)
[2022-12-11] MEDS: sodium chloride 0.9% 250 ML IV (14:20)
[2022-12-11] MEDS: ipratropium-albuterol 3 mL Neb INHALATION ×3 (15:10→23:47)
[2022-12-11] MEDS: piperacillin-tazobactam 3.375 GM in sodium chloride 0.9% (plus) 50 ML IV ×2 (15:35→21:03)
--- NOTE | 2022-12-11 16:14 | ECG_ITS ---
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 Measurements Intervals [place] Rate: 80 P: 0 RI: 0 QRS: -71 QRSD: 172 T: 107 QT: 494 QTc: 571 Interpretive Statements ELECTRONIC VENTRICULAR PACEMAKER ABNORMAL RHYTHM ECG Compared to ECG 12/11/2022 12:23:08 Atrial fibrillation no longer present Intraventricular conduction delay no longer present Electronically Signed On 12-11-2022 20:46:16 CDT by Althea Spring M.D. [id number]
[2022-12-11 16:17] LABS: ABG PCO2 51.9 mmHg (35-45); ABG PH Result 7.35 (7.35-7.45); Alveolar-Arterial Oxygen Gradi 66.7 mmHg (5-10); Arterial Blood Gas Hematocrit 47.7 % (42-52); Base Excess ABG 1.7 mmol/L (-2.0-2.0); Blood Gas Allen Test Pos; Blood Gas Operator Identificat MONRO; Blood Gas Sample Site Radial, right; Blood Gas Sample Type Arterial; Carboxyhemoglobin 0.5 %THgb (0.4-20.1); HCO3 ABG 28.5 mmol/L (22-26); HGB O2 Sat 98.3 % (95-100); Ionized Calcium Level - ABG 1.2 mmol/L (1.1-1.4); Methemoglobin 0.4 % (0.4-1.5); Oxygen Device VENT; Oxygen Saturation ABG 99.2; Potassium Level - ABG 4.7 mmol/L (3.5-5.0); Total Hemoglobin 15.5 g/dL (14-18)
[2022-12-11 17:09] LABS: Troponin 5 6HR 114.8 ng/L (0-15); Troponin 5 6HR Delta 102.8 ng/L (0-12)
[2022-12-11 17:30] LABS: Adenovirus Not Detected (NOT DETECT); Chlamydia Pneumoniae Not Detected (NOT DETECT); Coronavirus 229E,HKU1,NL63,OC4 Not Detected (NOT DETECT); Human Metapneumovirus Not Detected (NOT DETECT); Human Rhinovirus/Enterovirus Not Detected (NOT DETECT); Influenza A Not Detected (NOT DETECT); Influenza A H1 Not Detected (NOT DETECT); Influenza A H1-2009 Not Detected (NOT DETECT); Influenza A H3 Not Detected (NOT DETECT); Influenza B Not Detected (NOT DETECT); Mycoplasma Pneumoniae Not Detected (NOT DETECT); Parainfluenza Virus Type 1 Not Detected (NOT DETECT); Parainfluenza Virus Type 2 Not Detected (NOT DETECT); Parainfluenza Virus Type 3 Detected (NOT DETECT); Parainfluenza Virus Type 4 Not Detected (NOT DETECT); Respiratory Syncytial Virus A Not Detected (NOT DETECT); Respiratory Syncytial Virus B Not Detected (NOT DETECT); SARS-COV-2 Not Detected (NOT DETECT)
[2022-12-11 17:42] LABS: Parainfluenza Virus Type 1 Not Detected (NOT DETECT); Parainfluenza Virus Type 2 Not Detected (NOT DETECT); Parainfluenza Virus Type 3 Detected (NOT DETECT); Parainfluenza Virus Type 4 Not Detected (NOT DETECT); Results from Genmark
[2022-12-11 18:22] LABS: Basophils % 0.1 %; Hematocrit 47.9 % (42.0-52.0); Hemoglobin 15.1 g/dL (11.7-16.6); Lymphocytes # 0.7 10^3/uL (0.8-4.8); Lymphocytes % 4.5 %; Mean Corpuscular HGB Conc 31.5 g/dL (30.0-36.0); Mean Corpuscular Hemoglobin 28.4 pg (28.0-34.0); Mean Corpuscular Volume 90.2 fl (80-94); Monocytes # 1.3 10^3/uL (0.2-0.9); Monocytes % 8.4 %; Neutrophils # 13.62 10^3/uL (1.8-7.7); Neutrophils % 86.2 %; Nucleated Red Blood Cells % 0 %; Red Blood Count 5.31 10^6/uL (4.1-5.3); Red Cell Distribution Width 14.4 % (12.1-15.1); White Blood Count 15.8 10^3/uL (4.0-10.0)
[2022-12-11 19:02] LABS: Mean Platelet Volume 9.1 fL (7.4-10.4); Platelet Count 202 10^3/cmm (130-400)
[2022-12-11] MEDS: budesonide 0.5 mg/2 mL Neb INHALATION (19:45)
[2022-12-11] MEDS: enoxaparin 100 mg/mL Syringe 95 MG SUBCUT (21:03)
[2022-12-12] VITALS (54 sets, daily range): BP systolic 90–155; BP diastolic 60–110; PULSE 83–128; RESP 16–23; TEMP 36.6–37.4; O2SAT 90–98; BMI 33.0
[2022-12-12] MEDS: vancomycin 1,250 MG/250 ML PIGGYBACK 250 MG IV ×2 (01:48→13:56)
[2022-12-12] MEDS: ipratropium-albuterol 3 mL Neb INHALATION ×6 (04:21→23:43)
[2022-12-12 04:44] LABS: ABG PCO2 44.3 mmHg (35-45); Arterial Blood Gas Hematocrit 48.1 % (42-52); Base Excess ABG 2.2 mmol/L (-2.0-2.0); Blood Gas Allen Test Pos; Blood Gas Operator Identificat JB; Blood Gas Sample Site Radial, right; Blood Gas Sample Type Arterial; HCO3 ABG 27.6 mmol/L (22-26); Oxygen Device VENT
[2022-12-12 05:16] LABS: Basophils % 0.1 %; Hematocrit 47.3 % (42.0-52.0); Hemoglobin 14.5 g/dL (11.7-16.6); Lymphocytes % 6.6 %; Mean Corpuscular HGB Conc 30.7 g/dL (30.0-36.0); Mean Corpuscular Volume 91.3 fl (80-94); Monocytes # 1.7 10^3/uL (0.2-0.9); Monocytes % 11.6 %; Neutrophils # 11.74 10^3/uL (1.8-7.7); Neutrophils % 81.3 %; Nucleated Red Blood Cells % 0 %; Red Blood Count 5.18 10^6/uL (4.1-5.3); Red Cell Distribution Width 14.6 % (12.1-15.1); White Blood Count 14.4 10^3/uL (4.0-10.0)
[2022-12-12 05:33] LABS: Alanine Aminotransferase 114 U/L (0-41); Albumin Level 3.4 g/dL (3.5-5.2); Alkaline Phosphatase 81 U/L (40-130); Anion Gap 19.5 (5-19); Aspartate Amino Transferase 78 U/L (0-40); Blood Urea Nitrogen 32 mg/dL (8-23); Calcium 9.2 mg/dL (8.5-10.5); Carbon Dioxide 25 mmol/L (22-29); Chloride 98 mmol/L (98-107); Globulin 3.2 g/dL (1.3-4.6); Glucose 170 mg/dL (65-115); Magnesium 1.7 mg/dL (1.7-2.3); Osmolality Calculated 297 mOsm/kg (285-295); Potassium 4.5 mmol/L (3.5-5.1); Sodium 138 mmol/L (136-145); Total Bilirubin 0.6 mg/dL (0.15-1.2); Total Protein 6.6 g/dL (6.6-8.7)
[2022-12-12 05:34] LABS: INR 2.15 (0.8-1.2)
[2022-12-12] MEDS: piperacillin-tazobactam 3.375 GM in sodium chloride 0.9% (plus) 50 ML IV ×3 (05:55→20:59)
[2022-12-12 06:04] LABS: Platelet Count 138 10^3/cmm (130-400)
--- NOTE | 2022-12-12 07:00 | XR_ITS ---
WS: [id number] Portable AP semiupright chest, 12/12/2022 Clinical Data: resp failure Comparison: Portable chest, 12/11/2022 Findings: The endotracheal tube, nasogastric tube, right internal jugular venous catheter and cardiac pacemaker leads remain in the same position. The patchy opacity in the retrocardiac region has dimin ished. This may represent improvement in atelectasis. There is minimal linear atelectasis over the lazo rface of the right diaphragm. No nodules or masses are seen. The heart size remains the same. There a re monitor leads on the chest wall. XR/XR chest 1V portable [id number] Impression: Partial clearing of patchy opacity in retrocardiac region of left lower lobe.
--- NOTE | 2022-12-12 07:52 | PC.NURSE ---
Code status Dr. Ackerman discussed code status with patient's and son in the patient's room. Family agree they would not want patient to be coded (CPR) again in the event his heart stopped. They stated this had also been the patient's wishes. Dr. Ackerman to change code status. Nurse as witness.
[2022-12-12] MEDS: budesonide 0.5 mg/2 mL Neb INHALATION ×2 (07:54→20:01)
--- NOTE | 2022-12-12 07:58 | P.PN_ITS ---
Subjective Subjective: No meaningful response. Myoclonic jerks still present. Family at bedside, and detailed discussion occurred. Medications: Reviewed: Yes Vitals/I&O/Wt Last Vital Signs Temp 97.9 F 12/12/22 00:00 Pulse 107 H 12/12/22 06:00 Resp 22 H 12/12/22 04:22 BP 104/72 12/12/22 06:00 Pulse Ox 94 12/12/22 06:00 O2 Del Method Mechanical Ventilation 12/12/22 04:00 FiO2 70 12/12/22 06:00 12/11/22 12/12/22 12/12/22 22:59 06:59 14:59 Intake Total 690.671 / 1063.329 300 / 1363.329 Output Total 500 / 500 250 / 750 Balance 190.671 / 563.329 50 / 613.329 Weight last 48 hrs Weight 95.572 kg Weight 95.254 kg Weight 95.254 kg Physical Exam Narrative: General exam is a male, not responding, on ventilator, on minimal dose of fentanyl. HEENT: Right pupil round. Left irregular. indicates this is chronic. Neurologic: Spontaneously moves his feet. When opening eyes initial gaze is left but eyes will slowly come to midline, with a slow rotary movement. Oropharynx with endotracheal tube and orogastric tube Neck with central line, right IJ Cardiovascular irregular, irregular. No obvious murmur Lungs few coarse breath sounds at the bases Abdomen is soft. Bowel sounds are noted. No obvious organomegaly exam demonstrates Fowler Extremities no cyanosis clubbing or edema Urinary Catheter Management: Fowler: Cath Placed During This Visit: yes Reason for Continuing Indwelling Catheter: Accurate Measurement of Urinary Output in Critically Ill Patients Urinary Catheter Date of Insertion: 12/11/22 Urinary Catheter Time of Insertion: 09:30 Data 12/12/22 04:26 12/12/22 04:26 Micro: Microbiology 12/11/22 10:25 Blood Culture - Preliminary Blood SPECIMEN COLLECTED 12/11/22 10:35 Blood Culture - Preliminary Blood SPECIMEN COLLECTED A&P Assessment and plan (1) Cardiac arrest: Patient suffered a cardiac arrest, after ambulance was called. He had greater than 16 minutes of CPR. He got epinephrine multiple times, bicarb, calcium. He received at least 2 shocks for ventricular fibrillation. He eventually achieved ROSC, after a prolonged period of PEA. He has now weaned off epinephrine and norepinephrine Neurologic status has not improved significantly Placed on amiodarone for arrhythmias CBC, CMP tomorrow Start normal saline 30 cc an hour, total fluids around 70. Given cautiously secondary cardiac dysfunction. Echocardiogram has been performed, EF around 45% (2) Arrhythmia: Patient with ventricular fibrillation, receiving at least 2 shocks. He has known history of paroxysmal atrial fibrillation, and was on sotalol at home. Secondary to the ventricular arrhythmia, continue amiodarone currently. Magnesium and electrolytes were checked and normal. TSH checked and normal Echocardiogram demonstrates EF of 45% Does not appear to be fluid overloaded currently (3) Acute encephalopathy: From my understanding patient was having some confusion just prior to ambulance arrival but was able to talk. This may have been secondary to hypoxia. At home indicates they had increased his oxygen to 4 L from his normal 3. He also has a history of hypercarbia. 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 He has had myoclonic jerks. These are all poor prognostic signs. I have discussed the above in detail with family members. Everybody is in agreement for continued monitoring until tomorrow, and then likely discontinuat ion of aggressive care if no improvement is noted. They relate to me patient would not want to have any further codes, would never want to go to a half-way again for rehabilitation. Will also make him DNR at this point. Avoid any escalation in care until discussion with family occurs. (4) Acute respiratory failure: Patient presented initially with acute hypoxic and hypercarbic respiratory failure He was being treated for COPD exacerbation. He had recently received doxycycline but only 2 doses as reports this upset his stomach. Cannot completely rule out a pneumonia, as infiltrate or atelectasis is present left lower lobe. Continue vancomycin and Zosyn Sputum culture pending MRSA PCR pending ABG improved Continue dexamethasone DuoNeb every 4 hours Budesonide twice daily (5) Hypotension: Pressors were initiated in the emergency department These have now been weaned off Qualifiers: Hypotension type: other hypotension type Qualified Code(s): I95.89 - Other hypotension (6) COPD with acute exacerbation: Steroids, pulmonary toilet as above (7) Thrombocytopenia: Significant thrombocytopenia, on arrival. This is presumed secondary to prolonged code. Repeat platelets normal INR subtherapeutic yesterday but therapeutic today. Repeat tomorrow. SCDs for DVT prophylaxis Plan Multiple other medical problems as outlined in past medical history Changed to allow natural per family request. Possible discontinuation of aggressive medical care tomorrow if no neurologic improvement occurs SCDs for DVT prophylaxis, pharmacologic anticoagulation contraindicated currently Attestations Medical Necessity Statement*: Needs continued hospital stay secondary to cardiac arrest requiring ventilatory support for respiratory failure Critical Care Time: The high probability of a clinically significant, sudden or life threatening deterioration of the patient's [, neurologic, pulmonary, cardiac] system(s) required my full and direct attention, intervention and personal management. The critical care time is as shown. This time is in addition to time spent performing any reported procedures but includes the following: [x] Data and vital sign review and interpretation [x] Patient assessment, examination and intervention [x] Documentation [x] Medication orders and management Critical Care Time (min): 58 Coding Level of Care Code Critical Care >/= 30 minutes Critical care time (in minutes): 58 The high probability of a clinically significant, sudden or life threatening deterioration, as referenced in this documentation, required my full and direct attention, intervention and personal management. The critical care time shown is in addition to time spent performing any reported separately billable procedures and includes the following: [x] Data and vital sign review and interpretation [x ] Patient assessment, examination and intervention [x] Medication orders and management [x] Patient/Family updates as able [x] Care Coordination and Documentation. Diagnoses Cardiac arrest I46.9 Arrhythmia I49.9 Acute encephalopathy G93.40 Acute respiratory failure J96.00 Hypotension I95.89 Hypotension type: other hypotension type COPD with acute exacerbation J44.1 Thrombocytopenia D69.6 Time Spent (min) 58
[2022-12-12] MEDS: aspirin 81 mg EC Tablet PO (08:35)
[2022-12-12] MEDS: dexamethasone 10 mg/mL INJ 6 MG IVP (08:35)
[2022-12-12] MEDS: pantoprazole 40 mg SDV IVP (08:35)
[2022-12-12] MEDS: sodium chloride 0.9% 1,000 ML 30 ML IV (08:36)
--- NOTE | 2022-12-12 13:52 | PC.SOCIAL ---
Patient is intubated and in critical condition, SDOH not completed.
--- NOTE | 2022-12-12 14:37 | PC.NURSE ---
MTS called per protocol and notified of patient status and talks of withdrawing care.
--- NOTE | 2022-12-12 14:48 | PC.NURSE ---
MTS called back to unit, nurse spoke with Justina. Patient is not a candidate at this time due to having reflexes. They want called if terminal extubation occurs.
[2022-12-12 17:19] LABS: Methicillin-Resist S.aureu PCR NOT DETECTED (NOT DETECTED)
--- NOTE | 2022-12-12 18:08 | PC.NURSE ---
Addendum entered by Ousmane Clark RN 12/12/22 18:09: Dr. Ackerman notified. Original Note: Normal Sinus Rhythm at 1758
[2022-12-13] VITALS (25 sets, daily range): BP systolic 107–146; BP diastolic 68–98; PULSE 93–111; RESP 16–21; TEMP 36.9–37.1; O2SAT 90–94; BMI 33.0
[2022-12-13 00:43] LABS: Vancomycin Trough 21.3 ug/mL (10-15)
[2022-12-13] MEDS: vancomycin 1,250 MG/250 ML PIGGYBACK 250 MG IV (02:30)
[2022-12-13] MEDS: ipratropium-albuterol 3 mL Neb INHALATION ×3 (03:32→11:34)
[2022-12-13 03:58] LABS: Basophils % 0.1 %; Hematocrit 41.6 % (42.0-52.0); Lymphocytes # 0.9 10^3/uL (0.8-4.8); Lymphocytes % 8.4 %; Mean Corpuscular HGB Conc 31.3 g/dL (30.0-36.0); Mean Corpuscular Hemoglobin 27.9 pg (28.0-34.0); Mean Corpuscular Volume 89.3 fl (80-94); Mean Platelet Volume 13.5 fL (7.4-10.4); Monocytes # 1.3 10^3/uL (0.2-0.9); Monocytes % 11.4 %; Neutrophils # 8.74 10^3/uL (1.8-7.7); Neutrophils % 79.4 %; Nucleated Red Blood Cells % 0 %; Platelet Count 152 10^3/cmm (130-400); Red Blood Count 4.66 10^6/uL (4.1-5.3); Red Cell Distribution Width 14.9 % (12.1-15.1)
[2022-12-13 04:02] LABS: Slide Review Slide Review Perform
[2022-12-13 04:09] LABS: Alanine Aminotransferase 65 U/L (0-41); Alkaline Phosphatase 67 U/L (40-130); Anion Gap 17.1 (5-19); Aspartate Amino Transferase 40 U/L (0-40); Blood Urea Nitrogen 37 mg/dL (8-23); Calcium 8.5 mg/dL (8.5-10.5); Carbon Dioxide 25 mmol/L (22-29); Chloride 101 mmol/L (98-107); Glucose 146 mg/dL (65-115); Osmolality Calculated 299 mOsm/kg (285-295); Potassium 4.1 mmol/L (3.5-5.1); Sodium 139 mmol/L (136-145); Total Bilirubin 0.5 mg/dL (0.15-1.2)
[2022-12-13] MEDS: piperacillin-tazobactam 3.375 GM in sodium chloride 0.9% (plus) 50 ML IV ×2 (04:23→12:59)
[2022-12-13] MEDS: budesonide 0.5 mg/2 mL Neb INHALATION (07:49)
--- NOTE | 2022-12-13 07:57 | PC.NURSE ---
recieved on vent at this time . oral care done restraints off at this time responds to stimuli by raising eyes upward no purposful response withdraw to any stimuli tremor noted with posturing inward .. very poor gag reflex noted at this time
[2022-12-13] MEDS: pantoprazole 40 mg SDV IVP (08:05)
[2022-12-13] MEDS: dexamethasone 10 mg/mL INJ 6 MG IVP (08:05)
[2022-12-13] MEDS: levothyroxine 75 mcg Tablet 37.5 MCG PO (08:06)
[2022-12-13] MEDS: aspirin 81 mg EC Tablet PO (08:06)
[2022-12-13] MEDS: sodium chloride 0.9% 1,000 ML 30 ML IV (08:07)
--- NOTE | 2022-12-13 12:32 | P.PN_ITS ---
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,, it is dilated chronically, right pupil is constricted but reactive to light -At times he can track the light but he has doll's eyes eyes rolled up and drift -He does withdraw from pain, I palpated his abdomen, and he did withdrawal moved both arms in bed, wincing in pain, -Did withdraw from pain bilaterally, Babinski is upwards going bilaterally -Has a cough reflex, has a gag reflex -I discussed goals of care in detail with family members -He has been roughly 72 hours since patient's cardiac arrest episode -In my opinion the family has 2 options -We can give him time and see if he has any further neurologic recovery, or any neurologic progress -My worry is is that 72 hours out and he has not received any significant sedating medications, I am worried about significant neurologic injury given his doll's eyes, his nonresponsiveness to his name, he does not follow commands, -Before all this he was alert awake, ambulating on his own he could take care of himself but he was his wishes according to family numbers he would never want to be placed on life-sustaining measures, would not want to have a feeding tube would not have a want to have a tracheostomy would not want to go to a long term, according to family emergency rather than going back to a long term -I discussed with family members that we could give him time but I think that the likelihood of him having a meaningful recovery is fairly unlikely I do not think he would have the level of functioning that he had before his cardiac arrest episode -He could have some semblance of a life, and neurologic functioning, but only time will tell how long that will be and if it will be -But in order to give him a chance he is going to likely require some artificial form of feeling for some period of time aggressive physical therapy is going to require jail facility, he still intubated on mechanical ventilation, I do not feel he can maintain his airway, he will likely need a tracheostomy, likely require placement to long-term care facility -As I am saying this his is shaking her head and tells me he would never want that he would never want to be on the state that he is in currently actual ly she tells me he would never want to be like this to be kept on life support like this -She says that it was his wishes just to be comfortable to ease his pain eases suffering allow him to pass away comfortably -I advised him that family that even if I take him off the ventilator, he might continue to have some degree of functioning, he might have similar neurologic responses as he does currently, and that he might be on comfort care hospice for a prolonged period of time -But at that point the goal would be to ease his pain and ease his suffering, and to comply with his wishes to pass away comfortably -We can do comfort care hospice here in the hospital for roughly 48 hours, thereafter he was then either have to do hospice care at home -After discussing the risks and benefits of all options, patient's and family voiced understanding, all questions answered, they want to proceed with comfort care in the hospital -However they want to wait on patient's daughter to come to the hospital before terminal extubation, and comfort care -We will plan on terminal extubation and comfort care as soon as patient's daughter comes in the afternoon -Discussed risks and benefits of all options, they voiced understanding, all questions answered, agreed to proceed Vitals/I&O/Wt Last Vital Signs Temp 98.7 F 12/13/22 09:00 Pulse 94 12/13/22 11:34 Resp 21 H 12/13/22 11:36 BP 138/87 12/13/22 09:00 Pulse Ox 91 12/13/22 11:36 O2 Del Method Mechanical Ventilation 12/13/22 11:34 FiO2 40 12/13/22 11:36 12/12/22 12/13/22 12/13/22 22:59 06:59 14:59 Intake Total 300 / 661.396 389.125 / 1050.521 755.5 / 755.5 Output Total 730 / 730 330 / 1060 Balance -430 / -68.604 59.125 / -9.479 755.5 / 755.5 Weight last 48 hrs Weight 95.572 kg Weight 95.572 kg Weight 95.254 kg Physical Exam Const: COMMON NORMALS: no acute distress OTHER: Intubated, on mechanical ventilation, endotracheal tube in place, Neck/C-Spine: COMMON NORMALS: no JVD Resp: COMMON NORMALS: normal respiratory effort, No retractions, No use of accessory muscles and clear to auscultation bilaterally AUSCULTATION: clear to auscultation bilaterally Cardio: COMMON NORMALS: no JVD, regular rate, regular rhythm, S1 normal heart sound present and S2 normal heart sound present RATE: regular rate RHYTHM: regular rhythm HEART SOUNDS: S1 normal heart sound present and S2 normal heart sound present GI: COMMON NORMALS: Normal to inspection, nondistended, normoactive bowel sounds present and non-tender Extremity: COMMON NORMALS: no pedal edema Urinary Catheter Management: Fowler: Cath Placed During This Visit: yes Reason for Continuing Indwelling Catheter: Accurate Measurement of Urinary Output in Critically Ill Patients Urinary Catheter Date of Insertion: 12/11/22 Urinary Catheter Time of Insertion: 09:30 Data 12/13/22 03:14 12/13/22 03:14 Micro: Microbiology 12/11/22 14:19 Gram Stain - Final Sputum - Endotracheal Tube Aspirate Sputum Culture - Preliminary 12/11/22 10:35 Blood Culture - Preliminary Blood NEGATIVE TO DATE 12/11/22 10:25 Blood Culture - Preliminary Blood NEGATIVE TO DATE A&P Assessment and plan (1) Cardiac arrest: Proceeding with comfort care, concern for significant anoxic brain injury, Patient suffered a cardiac arrest, after ambulance was called. He had greater than 16 minutes of CPR. He got epinephrine multiple times, bicarb, calcium. He received at least 2 shocks for ventricular fibrillation. He eventually achieved ROSC, after a prolonged period of PEA. He has now weaned off epinephrine and norepinephrine Neurologic status has not improved significantly Placed on amiodarone for arrhythmias CBC, CMP tomorrow Start normal saline 30 cc an hour, total fluids around 70. Given cautiously secondary cardiac dysfunction. Echocardiogram has been performed, EF around 45% (2) Arrhythmia: Patient with ventricular fibrillation, receiving at least 2 shocks. He has known history of paroxysmal atrial fibrillation, and was on sotalol at home. Secondary to the ventricular arrhythmia, continue amiodarone currently. Magnesium and electrolytes were checked and normal. TSH checked and normal Echocardiogram demonstrates EF of 45% Does not appear to be fluid overloaded currently (3) Acute encephalopathy: From my understanding patient was having some confusion just prior to ambulance arrival but was able to talk. This may have been secondary to hypoxia. At home indicates they had increased his oxygen to 4 L from his normal 3. He also has a history of hypercarbia. 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 He has had myoclonic jerks. These are all poor prognostic signs. I have discussed the above in detail with family members. Everybody is in agreement for continued monitoring until tomorrow, and then likely discontinuation of aggressive care if no improvement is noted. They relate to me patient would not want to have any further codes, would never want to go to a long term again for rehabilitation. Will also make him DNR at this point. Avoid any escalation in care until discussion with family occurs. (4) Acute respiratory failure: Patient presented initially with acute hypoxic and hypercarbic respiratory failure He was being treated for COPD exacerbation. He had recently received d oxycycline but only 2 doses as reports this upset his stomach. Cannot completely rule out a pneumonia, as infiltrate or atelectasis is present left lower lobe. Continue vancomycin and Zosyn Sputum culture pending MRSA PCR pending ABG improved Continue dexamethasone DuoNeb every 4 hours Budesonide twice daily (5) Hypotension: Pressors were initiated in the emergency department These have now been weaned off Qualifiers: Hypotension type: other hypotension type Qualified Code(s): I95.89 - Other hypotension (6) COPD with acute exacerbation: Steroids, pulmonary toilet as above (7) Thrombocytopenia: Significant thrombocytopenia, on arrival. This is presumed secondary to prolonged code. Repeat platelets normal INR subtherapeutic yesterday but therapeutic today. Repeat tomorrow. SCDs for DVT prophylaxis (8) Anoxic brain injury: (9) Need for comfort care: Plan Concerns for anoxic brain injury Proceed with comfort care, terminal extubation, comfort care, waiting for patient's daughter, spoke to family, patient's , spoke to nursing staff, catarino damian to Dr. Galdamez Attestations Medical Necessity Statement*: Patient requires hospitalization for anoxic brain injury, cardiac arrest, need for comfort care, proceeding with comfort care Coding Level of Care Code Critical Care >/= 30 minutes Critical care time (in minutes): 70 The high probability of a clinically significant, sudden or life threatening deterioration, as referenced in this documentation, required my full and direct attention, intervention and personal management. The critical care time shown is in addition to time spent performing any reported separately billable procedures and includes the following: [x] Data and vital sign review and interpretation [x ] Patient assessment, examination and intervention [x] Medication orders and management [x] Patient/Family updates as able [x] Care Coordination and Documentation. Diagnoses Cardiac arrest I46.9 Arrhythmia I49.9 Acute encephalopathy G93.40 Acute respiratory failure J96.00 Hypotension I95.89 Hypotension type: other hypotension type COPD with acute exacerbation J44.1 Thrombocytopenia D69.6 Anoxic brain injury G93.1 Need for comfort care
--- NOTE | 2022-12-13 13:20 | PC.NURSE ---
rt here at this time ... family here at bedside extubated for comfort care at this time
[2022-12-13] MEDS: morphine 4 mg/mL SDV 1 mL IVP (13:30)
--- NOTE | 2022-12-13 13:50 | PC.NURSE ---
family at bedside .. post care done and mts called at this time and [facility] called informed ,,, dentures and hearing aids at home with
--- NOTE | 2022-12-13 13:54 | PM.DDS ---
Discharge Providers DDS Date of Admission: 12/11/22 12:24 Date Summary Completed: 12/23/22 Attending Provider at Admission: Robi Ackerman MD Attending Provider at Discharge: Rigoberto Gonzalez MD Primary Care Provider: Jennifer Ackerman MD DS Diagnoses Hospital Diagnoses (1) Cardiac arrest: (2) Arrhythmia: (3) Acute encephalopathy: (4) Acute respiratory failure: (5) Hypotension: Qualifiers: Hypotension type: other hypotension type Qualified Code(s): I95.89 - Other hypotension (6) COPD with acute exacerbation: (7) Thrombocytopenia: (8) Anoxic brain injury: (9) Need for comfort care: Reason for Visit Reason for Visit cardiac arrest Summary Summary Summary: Marcial Colindres is a 82 year old male presenting via ambulance from home.? Initial complaint was shortness of breath occurring for the last week or so, slowly worsening.? He had intermittent chest discomfort, which is not unusual.? He been coughing up green to yellow sputum, no blood.? He had intermittent palpitations, which is also not unusual considering his difficult to control paroxysmal atrial fibrillation.? According to his , he got a prescription for several days of doxycycline from urology recently, but only took 2 doses.? He also had some steroids for COPD exacerbation.? There have been no recent ill contacts.? His most recent hospitalization was in August, for an intracranial hemorrhage.? He had since been placed back on Coumadin.? There have been no recent falls.? After the ambulance arrived, at some point CPR ensued.? From my understanding he got at least 1-2 doses of epinephrine, and 1 shock in the ambulance.? After arriving at the emergency department he got 6 doses of epi, bicarb x2, calcium, and at least 1 shock initially for concerns of ventricular fibrillation.? It appears he got at least 16 minutes of CPR, perhaps more and achieved ROSC with asystole being the predominant later rhythm. When I am evaluating him his is at bedside giving most of the history.? He is sedated, and does not respond to me.? I have been informed that he has a gag reflex, when the NG was placed and has been breathing over the vent occasionally.? Besides the above documented the emergency department has initiated norepinephrine, epinephrine, fentanyl, propofol. Patient was admitted to [facility] for cardiac arrest, received 60 minutes of CPR, eventually ROSC was established, intubated, placed on pressors, placed on sedating medications, intubated, echocardiogram EF of 45%, eventually weaned off pressors, weaned off sedation, after over 72 hours off sedation, patient had no meaningful responses, after discussion with family about goals of care, concerns for significant anoxic brain injury, after discussing the risk and benefits of comfort care, patient's family agreed to proceed, patient was made comfort care, time of 12/13/2022 at 0150 Additional Data Confirmation of as documented by pronouncing clinician: no pulse, no respirations, no heart sounds and pupils fixed and dilated Additional persons at bedside: nursing staff Attending/PCP notified?: I am attending Was code activated?: No Autopsy requested?: No Advance directives?: No Discharge Plan Discharge Patient Disposition: Condition: Probable Cause of Probable cause of : Cardiac arrest DS Attestations Time Spent in /Discharge Care*: greater than 30 min Quality - AMI: AMI present?: No Quality - Stroke: CVA present?: No Symptom Onset Unknown: No Quality - VTE: VTE present?: No Deep Vein Thrombosis/Pulmonary Embolism Present on Admission: No Coding Level of Care Code 76130 Total time (in minutes) for Discharge: 45 Diagnoses Cardiac arrest I46.9 Arrhythmia I49.9 Acute encephalopathy G93.40 Acute respiratory failure J96.00 Hypotension I95.89 Hypotension type: other hypotension type COPD with acute exacerbation J44.1 Thrombocytopenia D69.6 Anoxic brain injury G93.1 Need for comfort care
--- NOTE | 2022-12-13 17:46 | PC.NURSE ---
call placed again to mts .. not reached continue to hold for mts release
== END 2022-12-13 20:15 | disposition expired | DRG 208 ==
LOC: ER 12:19 → ICU 12:24
PROVIDERS: Admitting Provider Internal Medicine; Emergency Provider Emergency Medicine; PCP Family Medicine; Visit Provider Family Medicine
DX: J96.01 Acute respiratory failure with hypoxia (principal); G93.1 Anoxic brain damage, not elsewhere classified; G93.40 Encephalopathy, unspecified; J44.1 Chronic obstructive pulmonary disease with (acute) exacerbation; I46.8 Cardiac arrest due to other underlying condition; J96.02 Acute respiratory failure with hypercapnia; I48.0 Paroxysmal atrial fibrillation; F41.9 Anxiety disorder, unspecified; I10 Essential (primary) hypertension; Z87.891 Personal history of nicotine dependence; Z99.81 Dependence on supplemental oxygen; E78.2 Mixed hyperlipidemia; G62.9 Polyneuropathy, unspecified; I73.9 Peripheral vascular disease, unspecified; Z95.0 Presence of cardiac pacemaker; D69.6 Thrombocytopenia, unspecified; I49.01 Ventricular fibrillation; I95.89 Other hypotension; Z66 Do not resuscitate; Z51.5 Encounter for palliative care
CPT/HCPCS: 31500; 36415; 36416; 36556; 36600; 51702; 70450; 71045; 80051; 80053; 80202; 81003; 82330; 82803; 82805; 82962; 83735; 83880; 84443; 84484; 85025; 85610; 85730; 87040; 87070; 87205; 87631; 87635; 87641; 93005; 93306; 94002; 94003; 94640; 94799; 96365; 96366; 96367; 96372; 96375; 99291; 99292; A4222; C9113; J0171; J0282; J1100; J1650; J2270; J2543; J2704; J3010; J3370; J3490; J7030; J7050; J7060; J7626